=== PATIENT | male | born 1940 | race Caucasian/White ===

== ENCOUNTER 2020-03-06 10:22 | Outpatient (CLI) | payer OTHER, SELFPAY ==
[2020-03-06 11:11] LABS: Blood Urea Nitrogen 12 mg/dL (9-20); Calcium 9.1 mg/dL (8.4-10.2); Carbon Dioxide 31 mmol/L (22-30); Chloride 103 mmol/L (98-107); Estimated Glomerular Filt Rate > 60; Glucose 123 mg/dL (75-110); Potassium 4.4 mmol/L (3.4-5.0); Sodium 137 mmol/L (137-145)
== END 2020-03-06 10:23 | disposition home or self-care (01) ==
PROVIDERS: PCP Family Medicine Adolescent Medicine; Visit Provider Internal Medicine Cardiovascular Disease
DX: I50.23 Acute on chronic systolic (congestive) heart failure (principal)
CPT/HCPCS: 36415; 80048

== ENCOUNTER 2020-05-28 09:01 | Outpatient (CLI) | payer OTHER, SELFPAY ==
[2020-05-28 09:44] LABS: Cholesterol 113 mg/dL (0-200); HDL Direct 31 mg/dL; Triglycerides 112 mg/dL (<150)
[2020-05-28 09:54] LABS: LDL Cholesterol Direct 59 mg/dL
== END 2020-05-28 09:02 | disposition home or self-care (01) ==
PROVIDERS: PCP Family Medicine Adolescent Medicine
DX: Z79.899 Other long term (current) drug therapy (principal)
CPT/HCPCS: 36415; 80061

== ENCOUNTER 2020-06-14 11:06 | Outpatient (CLI) | payer OTHER, SELFPAY ==
[2020-06-14 11:49] LABS: Basophils Absolute Auto 0.1 K/mm3 (0.0-0.1); Basophils Percent Auto 0.6 % (0.2-1.2); Eosinophils Absolute Auto 0.1 K/mm3 (0-0.3); Eosinophils Percent Auto 0.9 % (0-4.4); Hematocrit 42.6 % (42.0-52.0); Hemoglobin 14.3 g/dL (14.0-18.0); Immature Granulocyte Absolute 0.03 K/mm3 (0.00-0.031); Immature Granulocyte Percent A 0.4 % (0-0.5); Lymphocytes Absolute Auto 1.15 K/mm3 (0.9-3.2); Lymphocytes Percent Auto 14.1 % (18.3-44.2); Mean Corpuscular HGB Conc 33.6 g/dl (32-36); Mean Corpuscular Hemoglobin 31.4 pg (26-34); Mean Corpuscular Volume 93.4 fl (80-100); Mean Platelet Volume 10.3 fl (7.4-10.4); Monocytes Absolute Auto 0.7 K/mm3 (0.1-0.6); Neutrophils Absolute Auto 6.1 K/mm3 (1.3-6.7); Platelet Count Result 174 k/mm3 (150-375); Red Blood Count 4.56 M/mm3 (4.6-6.20); Red Cell Distribution Width 13.4 % (11.5-14.5); White Blood Count 8.2 K/mm3 (4.5-10.0)
[2020-06-14 12:03] LABS: Anion Gap 8 mmol/L (8-16); Blood Urea Nitrogen 17 mg/dL (9-20); Calcium 9.4 mg/dL (8.4-10.2); Carbon Dioxide 26 mmol/L (22-30); Chloride 103 mmol/L (98-107); Estimated Glomerular Filt Rate > 60; Glucose 97 mg/dL (75-110); Potassium 4.6 mmol/L (3.4-5.0); Sodium 137 mmol/L (137-145)
[2020-06-14 12:17] LABS: Iron 98 ug/dL (49-181)
[2020-06-14 12:26] LABS: Percent Iron Saturation 28 % (20-50)
== END 2020-06-14 11:07 | disposition home or self-care (01) ==
PROVIDERS: PCP Family Medicine Adolescent Medicine; Visit Provider Internal Medicine Cardiovascular Disease
DX: I50.23 Acute on chronic systolic (congestive) heart failure (principal)
CPT/HCPCS: 36415; 80048; 83540; 83550; 85025

== ENCOUNTER 2020-07-02 16:06 | Emergency (ER) | payer OTHER, SELFPAY ==
[2020-07-02 17:10] VITALS: BP 105/58; PULSE 62; RESP 18; TEMP 36.1; O2SAT 96
[2020-07-02 17:24] LABS: Basophils Percent Auto 0.2 % (0.2-1.2); Eosinophils Percent Auto 0.2 % (0-4.4); Hematocrit 41.1 % (42.0-52.0); Hemoglobin 13.9 g/dL (14.0-18.0); Immature Granulocyte Absolute 0.04 K/mm3 (0.00-0.031); Immature Granulocyte Percent A 0.3 % (0-0.5); Lymphocytes Absolute Auto 1.45 K/mm3 (0.9-3.2); Lymphocytes Percent Auto 10.8 % (18.3-44.2); Mean Corpuscular HGB Conc 33.8 g/dl (32-36); Mean Corpuscular Hemoglobin 31.5 pg (26-34); Mean Corpuscular Volume 93.2 fl (80-100); Mean Platelet Volume 10.1 fl (7.4-10.4); Monocytes Absolute Auto 0.9 K/mm3 (0.1-0.6); Monocytes Percent Auto 6.4 % (2.6-8.5); Neutrophils Percent Auto 82.1 % (45.5-73.1); Platelet Count Result 182 k/mm3 (150-375); Red Blood Count 4.41 M/mm3 (4.6-6.20); Red Cell Distribution Width 13.9 % (11.5-14.5); White Blood Count 13.4 K/mm3 (4.5-10.0)
[2020-07-02 17:33] LABS: Prothrombin Time 13.1 Seconds (11.1-14.7)
[2020-07-02 17:34] LABS: Partial Thromboplastin Time 27.1 SECONDS (22.3-36.8)
[2020-07-02 17:35] LABS: Alanine Aminotransferase 44 U/L (4-50); Albumin Level 4.4 g/dL (3.5-5.1); Alkaline Phosphatase 61 U/L (38-126); Anion Gap 6 mmol/L (8-16); Aspartate Amino Transferase 38 U/L (17-59); Bilirubin,Total 1.8 mg/dL (0.2-1.3); Blood Urea Nitrogen 24 mg/dL (9-20); Calcium 10.5 mg/dL (8.4-10.2); Carbon Dioxide 37 mmol/L (22-30); Chloride 93 mmol/L (98-107); Estimated CRCL calculation 58 ml/min; Estimated Glomerular Filt Rate > 60; Glucose 137 mg/dL (75-110); Potassium 4.8 mmol/L (3.4-5.0); Sodium 136 mmol/L (137-145)
[2020-07-02 19:38] VITALS: BP 123/63; PULSE 64; RESP 16; O2SAT 99
[2020-07-02 19:40] VITALS: BP 112/58; PULSE 62
[2020-07-02 19:41] VITALS: BP 119/64; PULSE 63
[2020-07-02 19:42] VITALS: BP 107/60; PULSE 76
--- NOTE | 2020-07-02 20:19 | ED.GIBLEED ---
HPI - GI Bleed General Chief complaint: GI Bleed Stated complaint: VOMITING BLOOD Time Seen by Provider: 07/02/20 19:18 Source: patient and family (Note typed up from patient's ) Mode of arrival: ambulatory Limitations: no limitations History of Present Illness HPI Narrative: Patient presents with chief complaint of vomiting with coffee-ground emesis that happened last night as well as this morning after eating. Patient states that he has had this issue before and had a EGD performed by Dr. Michael last September and he was started on Protonix 40 mg daily which he has been taking. Patient reports mild nausea but denies any abdominal pain, noticeable blood in his stool, weakness, chest pain, shortness of breath or other associated symptoms. Patient states of possible he would like to go home. Patient states that his called his primary care Dr. Thomas who recommended he come to the ER for evaluation. Related Data Home Medications Medication Instructions Recorded Confirmed baclofen 10 mg PO DAILY 10/05/19 10/05/19 carvedilol 3.125 mg PO DAILY 10/05/19 10/05/19 clopidogrel 75 mg PO DAILY 10/05/19 10/05/19 ferrous sulfate [iron] 325 mg PO DAILY 10/05/19 10/05/19 pantoprazole 40 mg PO HS 10/05/19 10/05/19 simvastatin 40 mg PO DAILY 10/05/19 10/05/19 Allergies Allergy/AdvReac Type Severity Reaction Status Date / Time Iodine and Iodide Containing Allergy Severe CARDIAC Verified 10/16/19 07:03 Produc ARREST iodixanol Allergy Severe CARDIAC Verified 10/16/19 07:03 ARREST Review of Systems Review of Systems: Narrative: CONSTITUTIONAL: Denies fever, chills, or sweats. EYES: Denies visual changes, redness, or discharge. ENT: Denies rhinorrhea, congestion, sore throat, or otalgia. CARDIOVASCULAR: Denies chest pain, palpitations, or edema. RESPIRATORY: Denies cough or dyspnea. GASTROINTESTINAL: Reports 3 episodes of vomiting with coffee-ground emesis and mild nausea denies abdominal pain or diarrhea. GENITOURINARY: Denies dysuria or hematuria. SKIN: Denies rash or itching. MUSCULOSKELETAL: Denies back pain, joint pain, or myalgia. NEUROLOGIC: Denies headache, numbness, dizziness, or weakness. PSYCHIATRIC: Denies anxiety or depression. [facility] Past Medical History Medical History (Updated 07/02/20 @ 20:44 by Luis E Raymundo PA-C) Anemia Arthritis CAD (coronary artery disease) CVA (cerebral vascular accident) GERD (gastroesophageal reflux disease) HLD (hyperlipidemia) HTN (hypertension) Myocardial infarct Shortness of breath Surgical History Surgical History (Updated 10/15/19 @ 17:35 by Kassy Mcmahan CRNA) H/O vasectomy History of appendectomy Hx of heart artery stent S/P angioplasties S/P cholecystectomy Family History Family History (Updated 01/25/18 @ 11:44 by DOCTOR UNKNOWN) Mother Diabetes mellitus Family history of malignant neoplasm Social History Social History Smoking status: Current every day smoker Alcohol intake: current Gender identity (if verbalized by the patient): Male Exam Narrative: Exam Narrative: GENERAL: Well-appearing, well-nourished, and in no acute distress. HEAD: Normocephalic, atraumatic. EYES: PERRLA and EOMI. ENT: Nares clear, no rhinorrhea or epistaxis. Mucous membranes moist. Oropharynx without tonsillar hypertrophy exudate or other lesions. Bilateral TMs pearly plata nonbulging. No coffee ground emesis or discolored residue to the oropharynx. Airway patent. NECK: Supple. No adenopathy or masses. CHEST: Clear to auscultation. No respiratory distress. No wheezes rales or rhonchi HEART: Regular rate and rhythm. No murmur heard. ABDOMEN: Soft, nontender, nondistended, normal active bowel sounds. No present vomiting. EXTREMITIES: Normal range of motion. No edema. SKIN: Warm, dry, no rash. NEURO: No focal deficits. Alert and oriented x3. Ambulates without weakness or difficulty. PSYCH: Normal mood and affect. Course Vital Signs Vital signs
--- NOTE | 2020-07-02 20:42 | PC.NURSE ---
Spoke with and gave her the instructions per Dr Michael. She stated that she will call them first thing in the morning.
[2020-07-02] MEDS: ONDANSETRON HCL ODT 4 MG TABLET PO (20:52)
== END 2020-07-02 21:15 | disposition home or self-care (01) ==
PROVIDERS: Emergency Medicine; Emergency Provider Emergency Medicine; PCP Family Medicine Adolescent Medicine
DX: K92.0 Hematemesis (principal); D64.9 Anemia, unspecified; M19.90 Unspecified osteoarthritis, unspecified site; I25.10 Atherosclerotic heart disease of native coronary artery without angina pectoris; K21.9 Gastro-esophageal reflux disease without esophagitis; E78.5 Hyperlipidemia, unspecified; I10 Essential (primary) hypertension; I25.2 Old myocardial infarction; F17.210 Nicotine dependence, cigarettes, uncomplicated
CPT/HCPCS: 36415; 80053; 85025; 85610; 85730; 86850; 86900; 86901; 99283; A9270

== ENCOUNTER 2020-07-08 02:48 | Outpatient (CLI) | payer OTHER, SELFPAY ==
[2020-07-08 16:34] LABS: SARS-CoV-2 RNA PCR Negative
== END 2020-07-08 02:49 | disposition home or self-care (01) ==
LOC: ANHCOVIDDT 02:48
PROVIDERS: PCP Family Medicine Adolescent Medicine; Visit Provider Internal Medicine Gastroenterology
DX: Z01.812 Encounter for preprocedural laboratory examination (principal); Z20.828 Contact with and (suspected) exposure to other viral communicable diseases
CPT/HCPCS: 87635; C9803; U0003

== ENCOUNTER 2020-07-10 01:05 | Day surgery (SDC) | payer OTHER, SELFPAY ==
--- NOTE | 2020-07-10 09:55 | WPDGICN ---
Assessment and Plan Assessment and plan (1) Hematemesis: Code(s): K92.0 - Hematemesis Status: Acute Assessment and Plan: plan is to evaluate with EGD. This is particularly important because patient requires Plavix cause of atherosclerotic heart disease. Plavix will be held briefly for the duration of the EGD. Patient is on pantoprazole 40 mg p.o. daily this will be continued until after endoscopy. (2) GERD (gastroesophageal reflux disease): Code(s): K21.9 - Gastro-esophageal reflux disease without esophagitis Status: Acute GI Consult Note Consult date/time: 07/10/20 09:55 HPI: Ross Canchola is a 80 year old male Seen in evaluation at the request of Dr. Lanre Thomas. Patient in usual state of health he experience 2-3 days of coffee-ground emesis. Today he presents for further evaluation. He states over the last 1-2 weeks has had no evidence of additional bleeding. He denies abdominal pain. He currently is tolerating diet without difficulty. Patient denies any prior history of ulcer disease. In the past he has been treated for acid reflux. He currently is on Plavix because of atherosclerotic heart disease. Review of Systems Review of Systems: All systems reviewed & are unremarkable except as noted in HPI and below PMFSH Past Medical History Medical History Anemia Arthritis CAD (coronary artery disease) CVA (cerebral vascular accident) GERD (gastroesophageal reflux disease) HLD (hyperlipidemia) HTN (hypertension) Myocardial infarct Shortness of breath Surgical History Surgical History (Updated 10/15/19 @ 17:35 by Kassy Mcmahan CRNA) H/O vasectomy History of appendectomy Hx of heart artery stent S/P angioplasties S/P cholecystectomy Family History Family History (Updated 01/25/18 @ 11:44 by DOCTOR UNKNOWN) Mother Diabetes mellitus Family history of malignant neoplasm Social History Social History (Updated 07/05/20 @ 10:33 by Wanda Duarte RN) Smoking status: Former smoker Tobacco type: cigarettes Second hand tobacco smoke exposure: No Alcohol intake: former Substance use: never Substance use type: does not use Living arrangements: with family Gender identity (if verbalized by the patient): Male Spiritual care concerns: No Agree to blood products: Yes Meds Home Medications and Allergies Home Medications Medication Instructions Recorded Confirmed Type carvedilol 3.125 mg PO DAILY 10/05/19 07/05/20 History clopidogrel 75 mg PO DAILY 10/05/19 07/05/20 History pantoprazole 40 mg PO HS 10/05/19 07/05/20 History ondansetron 4 mg PO Q6H PRN #14 tablet 07/02/20 07/05/20 Rx sucralfate [Carafate] 1 gm PO QID #20 tablet 07/02/20 07/05/20 Rx furosemide 40 mg PO DAILY 07/05/20 07/05/20 History rosuvastatin 40 mg PO DAILY 07/05/20 07/05/20 History sacubitril-valsartan [Entresto] 1 tablet PO BID 07/05/20 07/05/20 History spironolactone 25 mg PO DAILY 07/05/20 07/05/20 History tramadol 50 mg PO PRN 07/05/20 07/05/20 History Allergies Allergy/AdvReac Type Severity Reaction Status Date / Time Iodine and Iodide Containing Allergy Severe CARDIAC Verified 07/10/20 09:54 Produc ARREST iodixanol Allergy Severe CARDIAC Verified 07/10/20 09:54 ARREST Exam Narrative: Exam Narrative: Physical exam reveals patient to be alert. Vital signs stable. HEENT exam unremarkable. Patient is anicteric. Lungs are clear to auscultation and percussion. Heart is without murmur or extra sounds. Abdominal exam bowel sounds present soft nontender with no organomegaly. Rectal exam reveals no lesions. No stools obtained
--- NOTE | 2020-07-10 10:05 | WPDANESEPPF ---
Anes - Initial Pre Proc Eval Procedure: Operation Date: 07/10/20 10:30 Proposed Procedures p Esophagogastroduodenoscopy - Narciso Michael MD Date/Time: 07/10/20 10:05 Surgeon: Narciso Michael MD Pre Op Diagnosis: Hematemesis Patient Data Age: 80 Gender: M Height: Weight: Allergies Allergy/AdvReac Type Severity Reaction Status Date / Time Iodine and Iodide Containing Allergy Severe CARDIAC Verified 07/10/20 09:54 Produc ARREST iodixanol Allergy Severe CARDIAC Verified 07/10/20 09:54 ARREST Home Medications Medication Instructions Recorded Confirmed Type carvedilol 3.125 mg PO DAILY 10/05/19 07/10/20 History clopidogrel 75 mg PO DAILY 10/05/19 07/10/20 History pantoprazole 40 mg PO HS 10/05/19 07/10/20 History ondansetron 4 mg PO Q6H PRN #14 tablet 07/02/20 07/10/20 Rx sucralfate [Carafate] 1 gm PO QID #20 tablet 07/02/20 07/10/20 Rx furosemide 40 mg PO DAILY 07/05/20 07/10/20 History rosuvastatin 40 mg PO DAILY 07/05/20 07/10/20 History sacubitril-valsartan [Entresto] 1 tablet PO BID 07/05/20 07/10/20 History spironolactone 25 mg PO DAILY 07/05/20 07/10/20 History tramadol 50 mg PO PRN 07/05/20 07/10/20 History Patient hx anesthesia problems: none Family hx anesthesia problems: none PMFSH Past Medical History Medical History Anemia Arthritis CAD (coronary artery disease) CVA (cerebral vascular accident) GERD (gastroesophageal reflux disease) HLD (hyperlipidemia) HTN (hypertension) Myocardial infarct Shortness of breath Surgical History Surgical History (Updated 10/15/19 @ 17:35 by Kassy Mcmahan CRNA) H/O vasectomy History of appendectomy Hx of heart artery stent S/P angioplasties S/P cholecystectomy Family History Family History (Updated 01/25/18 @ 11:44 by DOCTOR UNKNOWN) Mother Diabetes mellitus Family history of malignant neoplasm Social History Social History (Updated 07/05/20 @ 10:33 by Wanda Duarte RN) Smoking status: Former smoker Tobacco type: cigarettes Second hand tobacco smoke exposure: No Alcohol intake: former Substance use: never Substance use type: does not use Living arrangements: with family Gender identity (if verbalized by the patient): Male Spiritual care concerns: No Agree to blood products: Yes Anes - Eval Final PreProcedure Day of Procedure 07/10/20 10:05 Patient weight: normal Heart: regular rate and rhythm Lungs: clear to auscultation Airway: Mallampati scale class II Neurological: alert and oriented Last oral intake: >/= 8 hours ASA classification: III Emergent: no Anesthetic plan: proceed Anesthesia type and monitoring: general GIVS and standard monitoring Informed Consent: The patient's anesthetic plan and its attendant risks and benefits were discussed with the patient/family/POA. Questions were solicited and answers provided to the satisfaction of the patient/family/POA.
[2020-07-10 10:16] VITALS: BP 114/62; PULSE 56; RESP 18; TEMP 36.4; O2SAT 100; BMI 24.1
[2020-07-10] MEDS: LACTATED RINGERS 1,000 ML 150 ML IV CONT (10:22)
[2020-07-10] MEDS: BENZOCAINE (*SP) 60 ML SPRAY CAN (HURRICAINE) 1 SPRAY MUCOUS MEM (10:48)
[2020-07-10 10:55] VITALS: BP 89/45; PULSE 57; RESP 30; O2SAT 99
[2020-07-10 11:05] VITALS: BP 95/68; PULSE 57; RESP 19; O2SAT 100
[2020-07-10 11:15] VITALS: BP 93/70; PULSE 59; RESP 19; O2SAT 100
--- NOTE | 2020-07-10 11:23 | ECG_ITS ---
Measurements Intervals [place] Rate: 60 P: 96 MS: 227 QRS: -46 QRSD: 138 T: 156 QT: 430 QTc: 431 Interpretive Statements SINUS RHYTHM WITH FIRST DEGREE AV BLOCK VENTRICULAR TRIGEMINY LEFT AXIS DEVIATION LEFT BUNDLE BRANCH BLOCK BASELINE ARTIFACT- I, II, III, AVR, AVL, AVF, V1-V6 ABNORMAL ECG Electronically Signed On 07-10-2020 12:20:27 CDT by Richard Lovelace D.O.
[2020-07-10 11:25] VITALS: BP 84/67; PULSE 60; RESP 25; O2SAT 100
--- NOTE | 2020-07-10 11:26 | SUR.PHASEII ---
Pt in atrial fibrillation. Notified Dr. Tian anesthesiology. Orders recieved for and EKG.
[2020-07-10 11:35] VITALS: BP 112/61; PULSE 58; RESP 25; O2SAT 100
--- NOTE | 2020-07-10 11:52 | SUR.PHASEII ---
EKG results given to Dr. Tian. Dr. Tian spoke with pt primary care physician Lanre Thomas regarding results. Pt to make follow up appointment with Dr. Thomas. Pt's Madelin Canchola updated.
== END 2020-07-10 12:01 | disposition home or self-care (01) ==
PROVIDERS: PCP Family Medicine Adolescent Medicine; Visit Provider Internal Medicine Gastroenterology
PROC: 0DJ08ZZ Inspection of Upper Intestinal Tract, Via Natural or Artificial Opening Endoscopic (ICD-10-PCS; CPT 43235; principal; 2020-07-10 10:30)
DX: K22.10 Ulcer of esophagus without bleeding (principal); K21.9 Gastro-esophageal reflux disease without esophagitis; K92.0 Hematemesis; I25.10 Atherosclerotic heart disease of native coronary artery without angina pectoris; E78.5 Hyperlipidemia, unspecified; I25.2 Old myocardial infarction; I10 Essential (primary) hypertension; M19.90 Unspecified osteoarthritis, unspecified site; Z87.891 Personal history of nicotine dependence
CPT/HCPCS: 43239; 88305; 93005; J2001; J2704; J7120

== ENCOUNTER 2022-05-17 15:19 | Emergency (ER) | payer OTHER, SELFPAY ==
[2022-05-17 15:22] VITALS: BP 146/86; PULSE 62; RESP 22; TEMP 36.1; O2SAT 98
--- NOTE | 2022-05-17 18:02 | PC.NURSE ---
no answer at triage
--- NOTE | 2022-05-17 18:26 | PC.NURSE ---
No answer when called in wr.
== END 2022-05-17 18:28 | disposition left against medical advice (07) ==
LOC: ANHED 18:11
PROVIDERS: PCP Family Medicine Adolescent Medicine
DX: R06.02 Shortness of breath (principal)
CPT/HCPCS: 99199

== ENCOUNTER 2022-11-01 21:53 | Inpatient (IN) | payer OTHER, SELFPAY ==
--- NOTE | ~2022-11-01 | XR_ITS ---
EXAMINATION: XR chest 1V portable DATE: 11/01/2022 23:01 INDICATION: Soreness of breath. COVID. Congestive heart failure. TECHNIQUE: frontal view of the chest was obtained. COMPARISON: Chest radiograph dated 03/27/2019 FINDINGS: Interstitial and airspace opacities throughout both lungs. Small left pleural effusion. No pneumothor ax. Cardiomediastinal silhouette within normal limits for AP technique. Surgical clips the left side of the neck. IMPRESSION: 1. Diffuse bilateral lung disease which could represent pneumonia or pulmonary edema. 2. Small left pleural effusion. Reviewed, dictated and finalized at location A. ITECTURE ANALYST
[2022-11-01 21:52] VITALS: BP 117/76; PULSE 102; RESP 21; TEMP 36.9; O2SAT 100
[2022-11-01 22:06] VITALS: O2SAT 100
--- NOTE | 2022-11-01 22:09 | ECG_ITS ---
Measurements Intervals [place] Rate: 94 P: 78 OR: 220 QRS: -25 QRSD: 171 T: 136 QT: 384 QTc: 481 Interpretive Statements SINUS RHYTHM WITH FIRST DEGREE AV BLOCK LEFT BUNDLE BRANCH BLOCK ABNORMAL ECG COMPARED TO ECG 07/10/2020 11:53:30 VENTRICULAR TRIGEMINY RESOLVED Electronically Signed On 11-02-2022 7:57:18 JORDAN WORKER by Richard Lovelace D.O.
--- NOTE | 2022-11-01 22:14 | ED.GENADULT ---
HPI - General Adult General Chief complaint: Shortness of Breath/Dyspnea Stated complaint: SOB Time Seen by Provider: 11/01/22 22:07 History of Present Illness HPI narrative: 82-year-old male with history of CVA, coronary disease, congestive heart failure emphysema hypertension and recent COVID presented emerged department for evaluation of worsening shortness of breath over the last 2 weeks. Patient states he was diagnosed with COVID approximately 1 week ago. Patient states over the last 2 weeks he has had worsening cough congestion and lower extremity edema. Patient is normally not on oxygen at home. Patient called EMS for shortness of breath and was placed on 4 L of oxygen by nasal cannula. Related Data Home Medications Medication Instructions Recorded Confirmed sacubitril 97 mg-valsartan 103 mg 1 tablet PO BID 07/05/20 11/02/22 tablet (Entresto) carvedilol 3.125 mg tablet 3.125 mg PO BID 11/03/21 11/02/22 furosemide 40 mg tablet 40 mg PO BID 11/02/22 11/02/22 Allergies Allergy/AdvReac Type Severity Reaction Status Date / Time Iodine and Iodide Containing Allergy Severe CARDIAC Verified 10/14/22 10:49 Produc ARREST iodixanol Allergy Severe CARDIAC Verified 10/14/22 10:49 ARREST Review of Systems Review of Systems: CONSTITUTIONAL: See HPI EYES: Denies visual changes, redness, or discharge. ENT: Denies rhinorrhea, congestion, sore throat, or otalgia. CARDIOVASCULAR: Denies chest pain, palpitations, or edema. RESPIRATORY: See HPI GASTROINTESTINAL: Denies abdominal pain, nausea, vomiting, or diarrhea. GENITOURINARY: Denies dysuria or hematuria. SKIN: Denies rash or itching. MUSCULOSKELETAL: Denies back pain, joint pain, or myalgia. NEUROLOGIC: Denies headache, numbness, or weakness. PSYCHIATRIC: Denies anxiety or depression. [facility] Past Medical History Medical History Anemia Arthritis CAD (coronary artery disease) GERD (gastroesophageal reflux disease) HLD (hyperlipidemia) HTN (hypertension) Myocardial infarct Shortness of breath Surgical History Surgical History H/O vasectomy History of appendectomy History of left-sided carotid endarterectomy 12/08 Hx of heart artery stent S/P angioplasties S/P cholecystectomy Family History Family History Mother Diabetes mellitus Family history of malignant neoplasm Social History Social History Smoking packs per day: 2 Smoking cigarettes per day: 40.0 Years smoked: 30 Smoking pack-years: 60.00 Smoking status: Former smoker Tobacco type: cigarettes Second hand tobacco smoke exposure: No Alcohol intake: never Substance use: never Substance use type: does not use Lack of Transportation: No Lack of Food: Never True Current Housing: I Have Housing Concerned About Future Housing: No Difficulty Paying Gas/Electric Bills: No Difficulty Paying for Meds: No Currently Unemployed: No Education: High School Diploma/GED Difficulty w/ Childcare or Family Care: No Living arrangements: with family Occupation/Education: retired Gender identity (if verbalized by the patient): Male Spiritual care concerns: No Agree to blood products: Yes Exam Narrative: APPEARANCE: Well appearing, no pain, no distress, well-nourished. HEAD: normocephalic, atraumatic. EYES: PERRLA/EOMI, conjunctivae clear. NOSE: Normal no drainage EARS:TMS clear with good light reflex. THROAT: Pharynx clear, no exudate. NECK: Supple. No adenopathy, no masses. RESPIRATORY: Airway patent, respirations nonlabored. Lower lung congestion CARDIOVASCULAR: Tachycardia ABDOMINAL: Soft, nontender, nondistended, normal bowel sounds MUSCULOSKELETAL: Moves all extremities. Strength/ROM intact, No edema, No calf tenderness. NEURO: Alert. C
[2022-11-01 22:34] LABS: Basophils Percent Auto 0.3 % (0.2-1.2); Eosinophils Percent Auto 0.1 % (0-4.4); Hematocrit 38.6 % (42.0-52.0); Hemoglobin 12.4 g/dL (14.0-18.0); Immature Granulocyte Absolute 0.04 K/mm3 (0.00-0.031); Immature Granulocyte Percent A 0.4 % (0-0.5); Lymphocytes Absolute Auto 0.75 K/mm3 (0.9-3.2); Lymphocytes Percent Auto 7.9 % (18.3-44.2); Mean Corpuscular HGB Conc 32.1 g/dl (32-36); Mean Corpuscular Hemoglobin 29.2 pg (26-34); Mean Corpuscular Volume 90.8 fl (80-100); Mean Platelet Volume 10.5 fl (7.4-10.4); Monocytes Absolute Auto 0.8 K/mm3 (0.1-0.6); Monocytes Percent Auto 8.9 % (2.6-8.5); Neutrophils Absolute Auto 7.8 K/mm3 (1.3-6.7); Neutrophils Percent Auto 82.4 % (45.5-73.1); Platelet Count Result 206 k/mm3 (150-375); Red Blood Count 4.25 M/mm3 (4.6-6.20); White Blood Count 9.5 K/mm3 (4.5-10.0)
[2022-11-01 22:47] LABS: INR 1.2; Partial Thromboplastin Time 28.3 SECONDS (22.3-36.8); Prothrombin Time 14.4 Seconds (11.1-14.7)
[2022-11-01 22:52] VITALS: BP 118/68; PULSE 99; RESP 26; O2SAT 99
--- NOTE | 2022-11-01 23:32 | PM.IMHP ---
H&P: HPI History of Present Illness Date/Time: 11/01/22 23:32 Chief Complaint: sob Narrative: This is an 82-year-old male with past medical history significant for coronary artery disease, GERD, hypertension, stroke. Patient presents to the emergency room due to shortness of breath tested positive for COVID a few days ago has noticed progressively worsening shortness of breath, body aches and pains, poor appetite, night sweats, chills, fevers. History taking is somehow limited patient has dysarthria as a sequela from a stroke. Preliminary workup was significant for chest x-ray was reported as: FINDINGS: Interstitial and airspace opacities throughout both lungs. Small left pleural effusion. No pneumothorax. Cardiomediastinal silhouette within normal limits for AP technique. Surgical clips the left side of the neck. IMPRESSION: 1. Diffuse bilateral lung disease which could represent pneumonia or pulmonary edema. 2. Small left pleural effusion. Review of Systems Review of Systems: History taking is limited patient complaining of shortness of breath tested positive for COVID A 2 weeks prior Constitutional: Constitutional: Reports chills, Reports fever(s) and Reports malaise Eyes: Eyes: Denies change in vision ENT: Denies dysphagia and Denies odynophagia Cardiovascular: Cardiovascular: Denies chest pain Respiratory: Respiratory: Reports cough and Reports dyspnea Gastrointestinal: Gastrointestinal: Denies abdominal pain, Denies dyspepsia, Denies heartburn, Denies diarrhea, Denies nausea and Denies vomiting Genitourinary: Genitourinary: Denies dysuria Musculoskeletal: Musculoskeletal: Reports myalgias and Reports muscle weakness Integumentary/Breasts: Skin/Breast: Denies rash Neurologic: Denies tingling and Denies paresthesias Psychiatric: Psychiatric: Reports no additional psychiatric complaints and Reports as per HPI Endocrine: Endocrine: Denies cold intolerance, Denies flushing, Denies heat intolerance, Denies polyphagia, Denies polydipsia and Denies palpitations Hematologic/Lymphatic: Hematologic/Lymphatic: Reports no additional hematologic/lymphatic complaints and Reports as per HPI Allergic/Immunologic: Allergic/Immunologic: Reports no additional allergic/immunologic complaints and Reports as per HPI [facility] Past Medical History Medical History Anemia Arthritis CAD (coronary artery disease) GERD (gastroesophageal reflux disease) HLD (hyperlipidemia) HTN (hypertension) Myocardial infarct Shortness of breath Surgical History Surgical History H/O vasectomy History of appendectomy History of left-sided carotid endarterectomy 12/08 Hx of heart artery stent S/P angioplasties S/P cholecystectomy Family History Family History Mother Diabetes mellitus Family history of malignant neoplasm Social History Social History Smoking packs per day: 2 Smoking cigarettes per day: 40.0 Years smoked: 30 Smoking pack-years: 60.00 Smoking status: Former smoker Tobacco type: cigarettes Second hand tobacco smoke exposure: No Alcohol intake: never Substance use: never Substance use type: does not use Lack of Transportation: No Lack of Food: Never True Current Housing: I Have Housing Concerned About Future Housing: No Difficulty Paying Gas/Electric Bills: No Difficulty Paying for Meds: No Currently Unemployed: No Education: High School Diploma/GED Difficulty w/ Childcare or Family Care: No Gender identity (if verbalized by the patient): Male Spiritual care concerns: No Agree to blood products: Yes Meds Home Medications and Allergies Home Medications Medication Instructions Recorded Confirmed Type sacubitril 97 mg-valsartan 103 mg 1 tablet PO BID
[2022-11-01 23:33] LABS: Influenza A QL RT-PCR Negative (Negative); Influenza B QL RT-PCR Negative (Negative); RSV RNA, RT-PCR Negative (Negative); SARS-CoV-2 RNA PCR Positive
[2022-11-01 23:48] VITALS: PULSE 95; RESP 28; O2SAT 99
[2022-11-02] VITALS (18 sets, daily range): BP systolic 90–115; BP diastolic 48–70; PULSE 64–92; RESP 16–24; TEMP 36.3–37; O2SAT 90–98; BMI 23.0
--- NOTE | 2022-11-02 | ECHO_ITS ---
Patient Info Name: Ross Canchola Age: 82 years : 1940 Gender: Male Ht: 72 in Wt: 169 lbs BSA: 1.97 m2 HR: 71 bpm BP: 110 / 58 mmHg Technical Quality: Fair Exam Date: 11/02/2022 2:58 PM Exam Location: [facility] Pulmonary Exam Room: 252 Patient Status: Inpatient Admit Date: 11/01/2022 Staff Ordering Physician: Hermelindo Jara MD Internal Audit Consultant: Sallie Nixon RCS Attending Provider: Johan Pinto MD Exam Type: CA echo dop color flow w con Study Info Indications - cardiolmyopathy Complete two-dimensional, color flow and Doppler transthoracic echocardiogram is performed with contrast to opacify the left ventricle and to improve the deliniation of the left ventricle endocardial borders. Contrast/Agitated Saline Contrast/Ag. Saline: Definity Amount: 2.00 ml Administered By: Sallie Nixon Existing IV Access: Yes IV Access Condition: patent with no signs of infiltration Summary 1. Left ventricular chamber dimension is severely enlarged. 2. Definity contrast administered improved wall motion interpretation. 3. Left ventricular systolic function is severely globally reduced, estimated at 15-20%. 4. Left ventricular septal wall motion is abnormal with septal motion related to bundle branch block. 5. The left ventricular diastolic function is abnormal. 6. E/e' 18 is elevated. 7. Left atrial chamber dimension is moderately enlarged. 8. Right atrial chamber dimension is moderately enlarged. 9. There is moderate aortic valve sclerosis. 10. There is trace aortic valve regurgitation. 11. The mitral valve has mildly calcified annulus. 12. There is mild mitral valve regurgitation. 13. There is trace tricuspid valve regurgitation. 14. No pulmonary hypertension, estimated pulmonary arterial systolic pressure is 19 mmHg. 15. There is trace pulmonic regurgitation. Left Ventricle E/e' 18 is elevated. Definity contrast administered improved wall motion interpretation. Left ventricular systolic function is severely globally reduced, estimated at 15-20%. Left ventricular chamber dimension is severely enlarged. Left ventricular septal wall motion is abnormal with septal motion related to bundle branch block. The left ventricular diastolic function is abnormal. Right Ventricle Right ventricular systolic function is normal and with normal TAPSE 2.4 cm. Right ventricular chamber dimension is normal. Left Atria Left atrial chamber dimension is moderately enlarged. Right Atria Right atrial chamber dimension is moderately enlarged. Aortic Valve The aortic valve is trileaflet. There is moderate aortic valve sclerosis. There is no aortic valve stenosis. There is trace aortic valve regurgitation. Pulmonic Valve There is trace pulmonic regurgitation. Mitral Valve The mitral valve has mildly calcified annulus. There is no mitral valve stenosis. There is mild mitral valve regurgitation. Tricuspid Valve There is trace tricuspid valve regurgitation. No pulmonary hypertension, estimated pulmonary arterial systolic pressure is 19 mmHg. Pericardium/Pleural There is no pericardial effusion. Inferior Vena Cava Normal inferior vena cava with >50% collapse upon inspiration consistent with normal right atrial pressure, 5 mmHg. Aorta The aortic root size at the sinus of Valsalva is normal. Left Ventricular Outflow Tract
[2022-11-02 00:07] LABS: Alanine Aminotransferase 22 U/L (6-50); Albumin Level 3.4 g/dL (3.5-5.1); Alkaline Phosphatase 91 U/L (38-126); Anion Gap 3 mmol/L (8-16); Aspartate Amino Transferase 23 U/L (17-59); Bilirubin,Total 1.3 mg/dL (0.2-1.3); Blood Urea Nitrogen 13 mg/dL (9-20); Calcium 8.2 mg/dL (8.4-10.2); Carbon Dioxide 28 mmol/L (22-30); Chloride 103 mmol/L (98-107); Estimated CRCL calculation 76 ml/min; Estimated Glomerular Filt Rate > 60; Glucose 110 mg/dL (65-110); Potassium 4.5 mmol/L (3.4-5.0); Sodium 134 mmol/L (137-145)
[2022-11-02 00:14] LABS: Appearance Urine Clear (Clear); Bilirubin Urine 1+ (Negative); Blood Urine Trace-intact (Negative); Color Urine Yellow (Yellow); Glucose Urine UA Negative (Negative); Ketones Urine 1+ mg/dL (Negative); Leukocyte Esterase Ur Negative LEU/UL (Negative); NT Pro B Type Natriuretic Pept 8790 pg/mL (19.9-100); Nitrate Urine Negative (Negative); Protein Urine 1+ mg/dL (Negative); Specific Grav Ur >= 1.030 (1.001-1.035); pH Urine 5.5 (5.0-9.0)
[2022-11-02 00:19] LABS: Mucus Urine Rare /lpf; WBC Urine 0-3 /hpf
[2022-11-02 00:20] LABS: Add Urine Microscopic? YES
[2022-11-02] MEDS: FUROSEMIDE INJ 40 MG/4 ML VIAL IV PUSH ×2 (02:15→09:18)
--- NOTE | 2022-11-02 02:28 | ECG_ITS ---
Measurements Intervals [place] Rate: 87 P: 61 TX: 196 QRS: -29 QRSD: 173 T: 132 QT: 422 QTc: 509 Interpretive Statements SINUS RHYTHM WITH FIRST DEGREE AV BLOCK LEFT BUNDLE BRANCH BLOCK BASELINE ARTIFACT- I, II, III ABNORMAL ECG COMPARED TO ECG 11/01/2022 22:21:34 NO SIGNIFICANT CHANGES Electronically Signed On 11-02-2022 7:59:10 ELECTROPLATING LABORER by Richard Lovelace D.O.
--- NOTE | 2022-11-02 03:58 | PC.NURSE ---
Pt admitted to 252 from ER 0100 via cart. Pt A/O x3 flat affect Slurred speech , left facial droop and left side weaker than right from previous stroke. From home with spouse. Both with COVID. Pt refused COVID vaccination, did receive FLU vaccination Pt increased SOB, called ambulance. Received on 4L. 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 NEWTOK Full dentures. Pt unaware of meds that he takes. Called spouse- received information on pt behavior and medication. Spouse states pt walks steady, no devices, no hx falls, legs weaker few weeks ago and yesterday, and asked spouse for help to walk. In bed since admission to unit. Spouse puts medication in a 30 day dispenser, then pt takes from any date randomly with no consistency so spouse not sure if pt took meds. Suggested to get a 7 day pill box and watch him use it. Pt has refused to take Entresto for a year due to the cost. Refuses to take lasix for several months. Will take coreg only once a day NOT BID as prescribed. Chronic constipation. Use of pulse ox at home when family tells him to use it; however pt leaves on momentarily, states pulse ox is 97% and removes quickly so family members cannot see as per spouse. Spouse uses w/c at times when increased weakness Per pt -both spouse and pt continue to drive. They order [employer] then have package pick up -brought to car. Pt states daughter helps occasionally . Order written for straight cath in ER- was not done- pt voided here 50ml then another 50ml - straight cath after and return of 150ml clear yellow urine. While this nurse in pt room at 0212- pt had 19 beats VT- asymptomatic. Notified Dr. Pinto and received order for 12 lead EKG Given lasix 40 IVP that was ordered while pt in ER. 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 Explained plan of care. Orientation to room/ equipment given Pt calm cooperative, verbalized understanding of all instructions given. Fall/safety precautions.Pt verbalized appreciativeness of care given several times.
[2022-11-02 08:40] LABS: Alanine Aminotransferase 21 U/L (6-50); Estimated CRCL calculation 78 ml/min; Estimated Glomerular Filt Rate > 60
[2022-11-02 08:43] LABS: INR 1.3; Prothrombin Time 15.2 Seconds (11.1-14.7)
[2022-11-02] MEDS: ROSUVASTATIN 10 MG TABLET 40 MG PO (09:14)
[2022-11-02] MEDS: CLOPIDOGREL BISULFATE 75 MG TABLET PO (09:15)
[2022-11-02] MEDS: PANTOPRAZOLE 40 MG TABLET PO ×2 (09:15→16:18)
[2022-11-02] MEDS: REMDESIVIR 200 MG/NS 250 ML 200 MG/250 ML BAG 250 MG IVPB (09:15)
[2022-11-02] MEDS: carvediloL 3.125 MG TABLET PO ×2 (09:18→20:55)
[2022-11-02] MEDS: SPIRONOLACTONE 25 MG TABLET PO (09:18)
[2022-11-02] MEDS: SACUBITRIL/VALSARTAN 97-103 MG TABLET 1 TAB PO (09:18)
--- NOTE | 2022-11-02 12:08 | PM.IMPN ---
Progress Note: A&P Assessment and Plan (1) Pneumonia due to COVID-19 virus: Code(s): U07.1 - COVID-19; J12.82 - Pneumonia due to coronavirus disease 2018 Status: Acute (2) Chronic systolic (congestive) heart failure: Code(s): I50.22 - Chronic systolic (congestive) heart failure Status: Acute (3) CAD (coronary artery disease): Code(s): I25.10 - Atherosclerotic heart disease of [place] coronary artery without angina pectoris Status: Acute (4) Ischemic cardiomyopathy: Code(s): I25.5 - Ischemic cardiomyopathy Status: Acute (5) Dysarthria following cerebral infarction: Code(s): I69.322 - Dysarthria following cerebral infarction Status: Acute (6) Arterial ischemic stroke, ICA (internal carotid artery), right, remote, resolved: Code(s): Z86.73 - Personal history of transient ischemic attack (TIA), and cerebral infarction without residual deficits Status: Acute (7) GERD (gastroesophageal reflux disease): Code(s): K21.9 - Gastro-esophageal reflux disease without esophagitis Status: Acute Plan # acute hypoxic respiratory failure needing oxygen supplementation likely related to COVID. Unsure if COVID got worse recently the he was tested positive 2 and half weeks ago. Will initiate Decadron and remdesivir. # diffuse pneumonia rule out bacterial. Initiate antibiotics ceftriaxone and azithromycin sputum culture # history of cardiomyopathy loss follow-up 2 years ago. Supposed to be on Lasix Entresto spironolactone. Has not been taking Entresto due to cost. Will recheck echo. BNP is elevated at 8790 no prior levels available . Will change Lasix to orally # COVID infection: See above # DVT prophylaxis Lovenox # code status full code Subjective Date/time seen: 11/02/22 12:08 Interval history: feeling better. Shortness of breath has improved. COVID diagnosed 2 and half weeks ago. Worsening unsure how long ago. Has some cough. Review of Systems Review of Systems: All systems reviewed & are unremarkable except as noted in HPI and below Exam Narrative: APPEARANCE: Well appearing, no pain, no distress, well-nourished. HEAD: normocephalic, atraumatic. EYES: PERRLA/EOMI, conjunctivae clear. NOSE: Normal no drainage NECK: Supple. No adenopathy, no masses. RESPIRATORY: Airway patent, respirations nonlabored.? Coarse breath sounds bilaterally CARDIOVASCULAR: regular rate and rhythm, frequent PVCs some NSVT ABDOMINAL: Soft, nontender, nondistended, normal bowel sounds MUSCULOSKELETAL: Moves all extremities. Strength/ROM intact, No edema, No calf tenderness. NEURO: Alert. Cranial nerves II through XII intact.? Grossly intact.? Patient does have some dysarthria.? No new focal numbness or weakness SKIN: Warm, dry. Normal Color Objective Data Vital Signs Vital Signs: Vital Signs - 24 hr 11/01/22 21:52 11/01/22 22:06 11/01/22 22:52 Temperature 98.5 F Pulse Rate 102 H 99 Respiratory Rate 21 H 26 H Blood Pressure 117/76 118/68 Pulse Oximetry 100 100 99 Oxygen Delivery Nasal Cannula Nasal Cannula Oxygen Flow Rate 4 4 11/01/22 23:48 11/02/22 00:20 11/02/22 01:04 Temperature 98.6 F Pulse Rate 95 89 92 Respiratory Rate 28 H 24 H 18 Blood Pressure 115/70 109/65 Pulse Oximetry 99 98 97 Oxygen Delivery Oxygen Flow Rate 11/02/22 01:00 11/02/22 04:00 11/02/22 02:18 Temperature 97.8 F Pulse Rate 91 80 82 Respiratory Rate 16 Blood Pressure 107/65 Pulse Oximetry 98 Oxygen Delivery Oxygen Flow Rate 11/02/22 02:52 11/02/22 04:15 11/02/22 06:02 Temperature 97.7 F Pulse Rate 82 Respiratory Rate 16 Blood Pressure 104/66 Pulse Oximetry 94 91 97 Oxygen Delivery Oxygen Flow Rate 4 11/02/22 09:18 Temperature Pulse Rate 81 Respiratory Rate Blood Pressure Pulse Oximetry Oxygen Delivery Oxygen Flow Rate Intake/Output Intake/Output: Intake & Output 10/30/22 10/31/22 11/01/22
[2022-11-02 13:18] LABS: Procalcitonin 0.1 ng/mL
[2022-11-02] MEDS: PERFLUTREN LIPID MICROSPHERES 1.5 ML VIAL DILUTED TO 10 ML TOTAL VOLUME IV PUSH (15:15)
[2022-11-03] VITALS (13 sets, daily range): BP systolic 90–128; BP diastolic 50–69; PULSE 60–91; RESP 16–18; TEMP 36.2–36.6; O2SAT 92–96
[2022-11-03 05:44] LABS: INR 1.4; Prothrombin Time 16.4 Seconds (11.1-14.7)
[2022-11-03 05:45] LABS: Alanine Aminotransferase 31 U/L (6-50); Estimated CRCL calculation 69 ml/min; Estimated Glomerular Filt Rate > 60
--- NOTE | 2022-11-03 09:40 | PM.CNCAR ---
Assessment and Plan Assessment and plan (1) Chronic systolic (congestive) heart failure: Code(s): I50.22 - Chronic systolic (congestive) heart failure Status: Acute Assessment and Plan: Longstanding diagnosis with EF ~15%. He does not appear to be in decompensated heart failure at this time. He is already on good medical therapy for his CMY including Entresto, spironolactone, and coreg. He did quit taking his Entresto about 6 months ago due to cost. Can provide him with some samples, but ultimately if he is unable to afford this dental practitioner, losartan may be a better choice for him. Will add jardiance to his regimen, hopefully he can afford this. He does not have an ICD, he tells me he has been offered ICD for 30 years, and is not interested in LifeVest or ICD placement at this time. Continue with p.o. furosemide. (2) CAD (coronary artery disease): Code(s): I25.10 - Atherosclerotic heart disease of [place] coronary artery without angina pectoris Status: Acute Assessment and Plan: Stable, not reporting any anginal symptoms. Continue plavix, statin. (3) Pneumonia due to COVID-19 virus: Code(s): U07.1 - COVID-19; J12.82 - Pneumonia due to coronavirus disease 2018 Status: Acute Assessment and Plan: Management per hospitalist History of Present Illness History of Present Illness Consult date/time: 11/03/22 09:40 Requesting physician: Hermelindo Jara MD Consult reason: Other (cardiomyopathy) Reason For Visit: covid pneumonia,hypoxia,chf Narrative: Mr. Sushant Lim is a 82-year-old gentleman with a history of coronary artery disease status post myocardial infarction in 1994 with stenting of his RCA and circumflex in 2001, stenting LAD in 2007 and, a drug-eluting stent to the LAD in the with a chronic total occlusion of the RCA and left to left collaterals noted in 2019. He also has chronic systolic heart failure previously with ejection fraction of 16% which subsequently improved to 23%. He is followed by Dr. Ritter at [facility] [place] for this, although it looks like he hasn't been seen since 2020. He comes to the hospital now with a chief complaint of shortness of breath with exertion. He was diagnosed with COVID two weeks ago and developed worsening shortness of breath about a week ago. He had some evidence of CHF on presentation with some pulmonary edema and small pleural effusion on chest Xray, elevated BNP, and some peripheral edema. He was given IV diuretic, started on antibiotics for possible pneumonia, and is being treated for COVID with remdesivir and decadron. Currently, he is breathing comfortably on 2L O2. Denies any chest pain. His echocardiogram performed here once again shows a severe cardiomyopathy with EF 15-20%. Review of Systems Review of Systems: All systems reviewed & are unremarkable except as noted in HPI and below PMFSH Past Medical History Medical History Anemia Arthritis CAD (coronary artery disease) GERD (gastroesophageal reflux disease) HLD (hyperlipidemia) HTN (hypertension) Myocardial infarct Shortness of breath Surgical History Surgical History H/O vasectomy History of appendectomy History of left-sided carotid endarterectomy 12/08 Hx of heart artery stent S/P angioplasties S/P cholecystectomy Family History Family History Mother Diabetes mellitus Family history of malignant neoplasm Social History Social History Smoking packs per day: 2 Smoking cigarettes per day: 40.0 Years smoked: 30 Smoking pack-years: 60.00 Smoking status: Former smoker Tobacco type: cigarettes Second hand tobacco smoke exposure: No Alcohol intake: never Substance use: never Substance use type:
[2022-11-03] MEDS: carvediloL 3.125 MG TABLET PO ×2 (11:09→22:00)
[2022-11-03] MEDS: CLOPIDOGREL BISULFATE 75 MG TABLET PO (11:10)
[2022-11-03] MEDS: FUROSEMIDE 40 MG TABLET PO (11:11)
[2022-11-03] MEDS: ROSUVASTATIN 10 MG TABLET 40 MG PO (11:11)
[2022-11-03] MEDS: ENOXAPARIN 40 MG/0.4 ML SYRINGE SUB-Q (11:11)
[2022-11-03] MEDS: SACUBITRIL/VALSARTAN 97-103 MG TABLET 1 TAB PO (11:12)
[2022-11-03] MEDS: SPIRONOLACTONE 25 MG TABLET PO (11:13)
[2022-11-03] MEDS: REMDESIVIR 100 MG/NS 250 ML 100 MG/250 ML BAG 250 MG IVPB (11:14)
[2022-11-03] MEDS: PANTOPRAZOLE 40 MG TABLET PO ×2 (11:39→18:28)
--- NOTE | 2022-11-03 17:57 | PM.IMPN ---
Progress Note: A&P Assessment and Plan (1) Pneumonia due to COVID-19 virus: Code(s): U07.1 - COVID-19; J12.82 - Pneumonia due to coronavirus disease 2018 Status: Acute (2) Chronic systolic (congestive) heart failure: Code(s): I50.22 - Chronic systolic (congestive) heart failure Status: Acute (3) CAD (coronary artery disease): Code(s): I25.10 - Atherosclerotic heart disease of [place] coronary artery without angina pectoris Status: Acute (4) Ischemic cardiomyopathy: Code(s): I25.5 - Ischemic cardiomyopathy Status: Acute (5) Dysarthria following cerebral infarction: Code(s): I69.322 - Dysarthria following cerebral infarction Status: Acute (6) Arterial ischemic stroke, ICA (internal carotid artery), right, remote, resolved: Code(s): Z86.73 - Personal history of transient ischemic attack (TIA), and cerebral infarction without residual deficits Status: Acute (7) GERD (gastroesophageal reflux disease): Code(s): K21.9 - Gastro-esophageal reflux disease without esophagitis Status: Acute Plan # acute hypoxic respiratory failure needing oxygen supplementation likely related to COVID. Unsure if COVID got worse recently the he was tested positive 2 and half weeks ago. Will initiate Decadron and remdesivir. imrpoved clinically. contineu current regimen. # diffuse pneumonia rule out bacterial. Initiate antibiotics ceftriaxone and azithromycin sputum culture # history of cardiomyopathy loss follow-up 2 years ago. Supposed to be on Lasix Entresto spironolactone. Has not been taking Entresto due to cost. Will recheck echo. BNP is elevated at 8790 no prior levels available . lasxi to oral. bp lowish. will hold meds as needed. entresto will lwoer trini dose. cardiology consult. echo with ef 15-20%. lost follow up with cardiology. he does not have ICD either. # hx of cad withs tents int eh past # COVID infection: See above # DVT prophylaxis Lovenox # code status full code Subjective Date/time seen: 11/03/22 17:57 Interval history: no overnight events, feeling better. no sob, chest pain. he feels better. Review of Systems Review of Systems: All systems reviewed & are unremarkable except as noted in HPI and below Exam Narrative: APPEARANCE: Well appearing, no pain, no distress, well-nourished. HEAD: normocephalic, atraumatic. EYES: PERRLA/EOMI, conjunctivae clear. NOSE: Normal no drainage NECK: Supple. No adenopathy, no masses. RESPIRATORY: Airway patent, respirations nonlabored.? Coarse breath sounds bilaterally CARDIOVASCULAR: regular rate and rhythm, frequent PVCs some NSVT ABDOMINAL: Soft, nontender, nondistended, normal bowel sounds MUSCULOSKELETAL: Moves all extremities. Strength/ROM intact, No edema, No calf tenderness. NEURO: Alert. Cranial nerves II through XII intact.? Grossly intact.? Patient does have some dysarthria.? No new focal numbness or weakness SKIN: Warm, dry. Normal Color Objective Data Vital Signs Vital Signs: Vital Signs - 24 hr 11/02/22 20:32 11/02/22 20:55 11/02/22 20:00 Temperature 97.9 F Pulse Rate 73 73 Respiratory Rate 18 Blood Pressure 90/55 L Pulse Oximetry 93 Oxygen Delivery Room Air 11/02/22 20:00 11/03/22 00:00 11/03/22 04:00 Temperature Pulse Rate 64 65 60 Respiratory Rate Blood Pressure Pulse Oximetry Oxygen Delivery 11/03/22 07:00 11/03/22 11:09 11/03/22 14:00 Temperature 97.8 F 97.1 F L Pulse Rate 86 68 64 Respiratory Rate 16 18 Blood Pressure 128/69 90/50 L Pulse Oximetry 92 96 Oxygen Delivery Intake/Output Intake/Output: Intake & Output 10/31/22 11/01/22 11/02/22 11/03/22 23:59 23:59 23:59 23:59 Intake Total 2040 1700 Output Total 1150 900 Balance 890 800 Meds/Results Medications: Active Medications Generic Name Dose Route Start Last Admin Trade Name Freq PRN Reason Stop Dose Admin Acetaminophen/Codeine Phosphate 1
[2022-11-04] VITALS (10 sets, daily range): BP systolic 90–107; BP diastolic 60–76; PULSE 56–92; RESP 18–21; TEMP 36.1–36.6; O2SAT 94–100
[2022-11-04 05:09] LABS: Basophils Percent Auto 0.1 % (0.2-1.2); Hematocrit 40.9 % (42.0-52.0); Hemoglobin 13.2 g/dL (14.0-18.0); Immature Granulocyte Absolute 0.07 K/mm3 (0.00-0.031); Immature Granulocyte Percent A 0.5 % (0-0.5); Lymphocytes Absolute Auto 0.69 K/mm3 (0.9-3.2); Lymphocytes Percent Auto 5.3 % (18.3-44.2); Mean Corpuscular HGB Conc 32.3 g/dl (32-36); Mean Corpuscular Hemoglobin 29.5 pg (26-34); Mean Corpuscular Volume 91.3 fl (80-100); Mean Platelet Volume 10.4 fl (7.4-10.4); Monocytes Absolute Auto 0.8 K/mm3 (0.1-0.6); Monocytes Percent Auto 6.2 % (2.6-8.5); Neutrophils Absolute Auto 11.4 K/mm3 (1.3-6.7); Neutrophils Percent Auto 87.9 % (45.5-73.1); Platelet Count Result 231 k/mm3 (150-375); Red Blood Count 4.48 M/mm3 (4.6-6.20); Red Cell Distribution Width 16.5 % (11.5-14.5); White Blood Count 12.9 K/mm3 (4.5-10.0)
[2022-11-04 05:15] LABS: INR 1.2; Prothrombin Time 14.9 Seconds (11.1-14.7)
[2022-11-04 05:30] LABS: Alanine Aminotransferase 63 U/L (6-50); Albumin Level 3.3 g/dL (3.5-5.1); Alkaline Phosphatase 82 U/L (38-126); Anion Gap 6 mmol/L (8-16); Aspartate Amino Transferase 69 U/L (17-59); Bilirubin,Total 0.6 mg/dL (0.2-1.3); Blood Urea Nitrogen 29 mg/dL (9-20); Calcium 7.9 mg/dL (8.4-10.2); Carbon Dioxide 29 mmol/L (22-30); Chloride 94 mmol/L (98-107); Estimated CRCL calculation 78 ml/min; Estimated Glomerular Filt Rate > 60; Glucose 168 mg/dL (65-110); Magnesium 2.1 mg/dL (1.6-2.3); Potassium 3.7 mmol/L (3.4-5.0); Sodium 129 mmol/L (137-145)
[2022-11-04] MEDS: CLOPIDOGREL BISULFATE 75 MG TABLET PO (10:03)
[2022-11-04] MEDS: ENOXAPARIN 40 MG/0.4 ML SYRINGE SUB-Q (10:03)
[2022-11-04] MEDS: EMPAGLIFLOZIN 10 MG TABLET PO (10:03)
[2022-11-04] MEDS: ROSUVASTATIN 10 MG TABLET 40 MG PO (10:04)
[2022-11-04] MEDS: PANTOPRAZOLE 40 MG TABLET PO ×2 (10:04→16:23)
[2022-11-04] MEDS: REMDESIVIR 100 MG/NS 250 ML 100 MG/250 ML BAG 250 MG IVPB (10:05)
--- NOTE | 2022-11-04 12:09 | PM.IMPN ---
Progress Note: A&P Assessment and Plan (1) Pneumonia due to COVID-19 virus: Code(s): U07.1 - COVID-19; J12.82 - Pneumonia due to coronavirus disease 2018 Status: Acute (2) COVID: Code(s): U07.1 - COVID-19 Status: Acute (3) Chronic systolic (congestive) heart failure: Code(s): I50.22 - Chronic systolic (congestive) heart failure Status: Acute (4) Hypoxia: Code(s): R09.02 - Hypoxemia Status: Acute (5) CAD (coronary artery disease): Code(s): I25.10 - Atherosclerotic heart disease of [place] coronary artery without angina pectoris Status: Acute Plan Heart failure with reduced ejection fraction 15% Patient refused ICD-life vest Patient's BP of 100/60 Hold BP medicines except Entresto Daily weights Continue Jardiance Antiplatelet & Statin therapy bulk pigment reducer recommended Currently on ceftriaxone and Zithromax. On remdesivir and Decadron for COVID Blood cultures Staph epididymis Sputum cultures pending. Time Spent With Patient Time: DVT prophylaxis. GI prophylaxis. All records reviewed Discussed plan of care with the nursing staff and with the patient in detail. Answered all questions and concerns from the patient. All labs have been reviewed. Code status updated dictation may have been done utilizing a voice recognition system. Attempts have been made to correct errors. However, there may be uncorrected grammatical, spelling, and recognition errors present. Subjective Date/time seen: 11/04/22 12:09 Interval history: Denies any complains Exam Narrative: GENERAL: Well appearing, well-nourished, non-toxic, in no acute distress. HEAD: Normocephalic, atraumatic. NECK: Supple. No adenopathy, no masses. RESPIRATORY: Airway patent, respirations nonlabored. Clear to auscultation bilaterally, no rales, rhonchi, wheezing. CARDIOVASCULAR: Regular rate and rhythm without murmurs, rubs, or gallops. Peripheral pulses 2+ and equal bilaterally. ABDOMINAL: Soft, nontender, nondistended, no hepatosplenomegaly. Normoactive BS. MUSCULOSKELETAL: no Epigastric and no hypochondrial tenderness SKIN: Warm, dry, normal color. No rashes. NEURO: A&O X3. Moves all extremities PSYCHIATRIC: Appropriate mood and affect. Normal interaction. Objective Data Vital Signs Vital Signs: Vital Signs - 24 hr 11/03/22 14:00 11/03/22 16:00 11/03/22 21:59 Temperature 36.2 C L 36.4 C L Pulse Rate 64 91 70 Respiratory Rate 18 18 Blood Pressure 90/50 L 100/60 Pulse Oximetry 96 95 Oxygen Delivery Oxygen Flow Rate 11/03/22 22:00 11/03/22 20:36 11/04/22 00:00 Temperature Pulse Rate 62 68 64 Respiratory Rate Blood Pressure Pulse Oximetry Oxygen Delivery Oxygen Flow Rate 11/04/22 04:00 11/03/22 22:11 11/03/22 22:50 Temperature Pulse Rate 65 Respiratory Rate Blood Pressure Pulse Oximetry 96 93 Oxygen Delivery Nasal Cannula Nasal Cannula Oxygen Flow Rate 4 3 11/04/22 06:00 11/04/22 08:00 11/04/22 08:00 Temperature 36.1 C L Pulse Rate 62 56 L Respiratory Rate 21 H Blood Pressure 100/60 Pulse Oximetry 100 100 Oxygen Delivery Nasal Cannula Oxygen Flow Rate 4 Intake/Output Intake/Output: Intake & Output 11/01/22 11/02/22 11/03/22 11/04/22 23:59 23:59 23:59 23:59 Intake Total 2040 2200 536 Output Total 1150 900 775 Balance 890 1300 -239 Meds/Results Medications: Active Medications Generic Name Dose Route Start Last Admin Trade Name Freq PRN Reason Stop Dose Admin Acetaminophen/Codeine Phosphate 1 tab 11/02/22 08:11 Acetaminophen/Codeine (*Crx) 300/30 Mg Tablet PO Q6H PRN pain or cough Carvedilol 3.125 mg 11/02/22 09:00 11/04/22 12:01 Carvedilol 3.125 Mg Tablet PO Not Given Q12HR LAYA Clopidogrel Bisulfate 75 mg 11/02/22 09:00 11/04/22 10:03 Clopidogrel Bisulfate 75 Mg Tablet PO 75 mg DAILY LAYA Administration Dexamethasone Sod
[2022-11-04] MEDS: SACUBITRIL/VALSARTAN 24-26 MG TABLET 1 TAB PO ×2 (13:22→23:52)
[2022-11-05] VITALS (15 sets, daily range): BP systolic 97–110; BP diastolic 54–62; PULSE 57–82; RESP 16–26; TEMP 36.2–36.5; O2SAT 93–100
--- NOTE | 2022-11-05 00:43 | PC.NURSE ---
Carvedilol and furosemide held today due to BP being soft systolic <100. Pt denies any dizziness, fatigue, blurred vision, shortness of breath or chest pain. Entresto given this afternoon.
[2022-11-05 02:05] LABS: Vancomycin Trough 15.4 ug/mL (10.0-20.0)
[2022-11-05 05:12] LABS: INR 1.3; Prothrombin Time 15.3 Seconds (11.1-14.7)
[2022-11-05 05:18] LABS: Alanine Aminotransferase 49 U/L (6-50); Estimated CRCL calculation 89 ml/min; Estimated Glomerular Filt Rate > 60
[2022-11-05] MEDS: EMPAGLIFLOZIN 10 MG TABLET PO (08:01)
[2022-11-05] MEDS: PANTOPRAZOLE 40 MG TABLET PO ×2 (08:01→16:38)
[2022-11-05] MEDS: SACUBITRIL/VALSARTAN 24-26 MG TABLET 1 TAB PO ×2 (08:01→21:04)
[2022-11-05] MEDS: carvediloL 3.125 MG TABLET PO ×2 (08:02→21:04)
[2022-11-05] MEDS: FUROSEMIDE 40 MG TABLET PO ×2 (08:02→16:38)
[2022-11-05] MEDS: ROSUVASTATIN 10 MG TABLET 40 MG PO (08:02)
[2022-11-05] MEDS: CLOPIDOGREL BISULFATE 75 MG TABLET PO (08:02)
[2022-11-05] MEDS: SPIRONOLACTONE 25 MG TABLET PO (08:02)
[2022-11-05] MEDS: ENOXAPARIN 40 MG/0.4 ML SYRINGE SUB-Q (08:03)
[2022-11-05] MEDS: REMDESIVIR 100 MG/NS 250 ML 100 MG/250 ML BAG 250 MG IVPB (09:29)
[2022-11-05 09:42] LABS: Glucose Point of Care 159 mg/dl (65-105)
--- NOTE | 2022-11-05 10:16 | PM.IMPN ---
Progress Note: A&P Assessment and Plan (1) Pneumonia due to COVID-19 virus: Code(s): U07.1 - COVID-19; J12.82 - Pneumonia due to coronavirus disease 2018 Status: Acute (2) COVID: Code(s): U07.1 - COVID-19 Status: Acute (3) Chronic systolic (congestive) heart failure: Code(s): I50.22 - Chronic systolic (congestive) heart failure Status: Acute (4) Hypoxia: Code(s): R09.02 - Hypoxemia Status: Acute (5) CAD (coronary artery disease): Code(s): I25.10 - Atherosclerotic heart disease of [place] coronary artery without angina pectoris Status: Acute Plan Heart failure with reduced ejection fraction 15% Patient refused ICD-life vest Patient's BP of 100/60 Hold BP medicines except Entresto Daily weights Continue Jardiance Antiplatelet & Statin therapy business services sales representative recommended Currently on ceftriaxone and Zithromax. On remdesivir and Decadron for COVID Blood cultures Staph epididymis possible contamination Sputum cultures pending. Patient is DNR DNI Time Spent With Patient Time: DVT prophylaxis. GI prophylaxis. All records reviewed Discussed plan of care with the nursing staff and with the patient in detail. Answered all questions and concerns from the patient. All labs have been reviewed. Code status updated dictation may have been done utilizing a voice recognition system. Attempts have been made to correct errors. However, there may be uncorrected grammatical, spelling, and recognition errors present. Subjective Date/time seen: 11/05/22 10:16 Interval history: Patient said his blurriness in his vision was sitting down blood pressure was normal. Exam Narrative: GENERAL: Well appearing, well-nourished, non-toxic, in no acute distress. HEAD: Normocephalic, atraumatic. NECK: Supple. No adenopathy, no masses. RESPIRATORY: Airway patent, respirations nonlabored. Clear to auscultation bilaterally, no rales, rhonchi, wheezing. CARDIOVASCULAR: Regular rate and rhythm without murmurs, rubs, or gallops. Peripheral pulses 2+ and equal bilaterally. ABDOMINAL: Soft, nontender, nondistended, no hepatosplenomegaly. Normoactive BS. MUSCULOSKELETAL: no Epigastric and no hypochondrial tenderness SKIN: Warm, dry, normal color. No rashes. NEURO: A&O X3. Moves all extremities PSYCHIATRIC: Appropriate mood and affect. Normal interaction. Objective Data Vital Signs Vital Signs: Vital Signs - 24 hr 11/04/22 14:00 11/04/22 12:00 11/04/22 16:00 Temperature 36.6 C Pulse Rate 92 80 77 Respiratory Rate 18 Blood Pressure 104/76 Pulse Oximetry 94 Oxygen Delivery Oxygen Flow Rate 11/04/22 19:44 11/04/22 23:22 11/04/22 20:00 Temperature 36.3 C L 36.4 C Pulse Rate 64 63 63 Respiratory Rate 20 18 Blood Pressure 90/60 L 107/60 Pulse Oximetry 96 97 Oxygen Delivery Oxygen Flow Rate 11/05/22 00:42 11/05/22 00:00 11/05/22 04:11 Temperature 36.2 C L Pulse Rate 58 L 82 66 Respiratory Rate 26 H Blood Pressure 97/54 L Pulse Oximetry 97 Oxygen Delivery Oxygen Flow Rate 11/05/22 04:00 11/05/22 08:02 11/05/22 08:15 Temperature 36.3 C L Pulse Rate 58 L 60 60 Respiratory Rate 16 Blood Pressure 102/62 Pulse Oximetry 100 Oxygen Delivery Oxygen Flow Rate 11/05/22 09:05 11/05/22 08:00 Temperature Pulse Rate 65 Respiratory Rate 16 Blood Pressure 98/60 L Pulse Oximetry 98 100 Oxygen Delivery Nasal Cannula Oxygen Flow Rate 3 Intake/Output Intake/Output: Intake & Output 11/02/22 11/03/22 11/04/22 11/05/22 23:59 23:59 23:59 23:59 Intake Total 2040 2250 2712 740 Output Total 6411 840 1682 400 Balance 890 1350 1137 340 Meds/Results Medications: Active Medications Generic Name Dose Route Start Last Admin Trade Name Freq PRN Reason Stop Dose Admin Acetaminophen/Codeine Phosphate 1 tab 11/02/22 08:11 Acetaminophen/Codeine (*Crx) 300/30 Mg Tablet PO Q6H
--- NOTE | 2022-11-05 15:36 | PC.NURSE ---
On 11/05/22, the student, [Ke Ellison], provided care and completed [facility] documentation on this patient. I have reviewed the student's documentation and agree with the findings.
[2022-11-06 00:32] VITALS: PULSE 60
[2022-11-06 04:00] VITALS: PULSE 64
[2022-11-06 05:55] LABS: INR 1.2; Prothrombin Time 14.8 Seconds (11.1-14.7)
[2022-11-06 05:58] LABS: Alanine Aminotransferase 60 U/L (6-50)
[2022-11-06 06:00] VITALS: BP 92/50; PULSE 64; RESP 18; TEMP 36.2; O2SAT 95
[2022-11-06 08:01] VITALS: PULSE 55
[2022-11-06] MEDS: ROSUVASTATIN 10 MG TABLET 40 MG PO (08:58)
[2022-11-06] MEDS: CLOPIDOGREL BISULFATE 75 MG TABLET PO (08:58)
[2022-11-06 08:59] VITALS: PULSE 72
[2022-11-06] MEDS: PANTOPRAZOLE 40 MG TABLET PO (08:59)
[2022-11-06] MEDS: ENOXAPARIN 40 MG/0.4 ML SYRINGE SUB-Q (08:59)
[2022-11-06] MEDS: carvediloL 3.125 MG TABLET PO (08:59)
[2022-11-06] MEDS: FUROSEMIDE 40 MG TABLET PO (08:59)
[2022-11-06] MEDS: SACUBITRIL/VALSARTAN 24-26 MG TABLET 1 TAB PO (08:59)
[2022-11-06] MEDS: SPIRONOLACTONE 25 MG TABLET PO (08:59)
[2022-11-06] MEDS: EMPAGLIFLOZIN 10 MG TABLET PO (08:59)
[2022-11-06] MEDS: AZITHROMYCIN 250 MG TABLET 500 MG PO (08:59)
[2022-11-06] MEDS: REMDESIVIR 100 MG/NS 250 ML 100 MG/250 ML BAG 250 MG IVPB (09:45)
--- NOTE | 2022-11-06 11:16 | PM.DS ---
DS: Admitting Diagnosis Discharge Date November 06, 2022 Admitting Diagnosis sob DS: Discharge Diagnosis Discharge Diagnosis (1) Pneumonia due to COVID-19 virus: Code(s): U07.1 - COVID-19; J12.82 - Pneumonia due to coronavirus disease 2018 Status: Acute (2) Hypoxia: Code(s): R09.02 - Hypoxemia Status: Acute (3) Chronic systolic (congestive) heart failure: Code(s): I50.22 - Chronic systolic (congestive) heart failure Status: Acute (4) Ischemic cardiomyopathy: Code(s): I25.5 - Ischemic cardiomyopathy Status: Acute DS: Summary Hospital Course Hospital Course: This is an 82-year-old male with past medical history significant for coronary artery disease, GERD, hypertension, stroke.? Patient presents to the emergency room due to shortness of breath tested positive for COVID a few days ago has noticed progressively worsening shortness of breath, body aches and pains,? poor appetite, night sweats, chills, fevers.? History taking is somehow limited patient has dysarthria as a sequela from a stroke. Preliminary workup was significant for chest x-ray was reported as: Patient has been noted to have a congestive heart failure with EF of 15% has declined any ICD or LifeVest. Cardiology was also consulted. Patient was treated with antibiotics for his pneumonia which has resolved patient clinically much improved no signs of hypoxia or tachycardia blood pressure has improved on Entresto and carvedilol will continue to monitor closely patient can be discharged home but to be closely followed with Cardiology and primary care physician outpatient Time Spent with Patient Time attestation: Total time spent providing and/or coordinating discharge services: Exam Narrative: GENERAL: Well appearing, well-nourished, non-toxic, in no acute distress. HEAD: Normocephalic, atraumatic. NECK: Supple. No adenopathy, no masses. RESPIRATORY: Airway patent, respirations nonlabored. Clear to auscultation bilaterally, no rales, rhonchi, wheezing. CARDIOVASCULAR: Regular rate and rhythm without murmurs, rubs, or gallops. Peripheral pulses 2+ and equal bilaterally. ABDOMINAL: Soft, nontender, nondistended, no hepatosplenomegaly. Normoactive BS. MUSCULOSKELETAL: no Epigastric and no hypochondrial tenderness SKIN: Warm, dry, normal color. No rashes. NEURO: A&O X3. Moves all extremities PSYCHIATRIC: Appropriate mood and affect. Normal interaction. DS: Data Data Completed and Pending Labs on day of discharge: Labs from last 24 hours 11/06/22 11/06/22 05:28 05:28 PT 14.8 H INR 1.2 ALT 60 H Preliminary micro results at discharge 11/01/22 23:43 Blood Culture - Preliminary Blood Staphylococcus epidermis 11/03/22 10:30 Blood Culture - Preliminary Blood 11/03/22 10:28 Blood Culture - Preliminary Blood 11/01/22 23:43 Blood Culture - Preliminary Blood Discharge Plan Discharge Consulting providers: Jaki Adamson Discharging Clinician: Abimael Rudolph Patient Disposition: Home, Self-Care Activity: as tolerated Diet: heart healthy Discharge Instructions: For Cardiology and reconsider ICD/life vest Patient Instructions: Antibiotic Form Stand Alone Forms: General Discharge Information Follow-up/Referrals: Lanre Laureano MD [Primary Care Provider] - 1 Week Discharge Medications: Continued spironolactone 25 mg tablet 25 mg PO DAILY Entresto 97-103 mg tablet 1 tablet PO BID Label Comments: refuses to take because it is too expensive carvedilol 3.125 mg tablet 3.125 mg PO BID Label Comments: refuses BID only take x1 daily furosemide 40 mg tablet 40 mg PO BID Rx Instructions: pt refuses to take for a year clopidogrel 75 mg tablet 75 mg PO DAILY Qty: 90 1RF rosuvastatin 40 mg tablet 40 mg PO DAILY Qty: 90 1RF pantoprazole 40 mg tablet,delayed release (DR/EC) 40 mg PO BID Qty: 180 4R
[2022-11-06 14:00] VITALS: BP 105/59; PULSE 65; RESP 16; TEMP 36.7; O2SAT 97
== END 2022-11-06 15:45 | disposition home or self-care (01) | DRG 177 ==
LOC: ANHED 23:37 → ANH2MED 11-02 00:04
PROVIDERS: Internal Medicine; Admitting Provider Internal Medicine; Emergency Provider Emergency Medicine; PCP Family Medicine Adolescent Medicine; Visit Provider Internal Medicine
DX: U07.1 COVID-19 (principal); J12.82 Pneumonia due to coronavirus disease 2019; I50.22 Chronic systolic (congestive) heart failure; I11.0 Hypertensive heart disease with heart failure; I25.5 Ischemic cardiomyopathy; I25.10 Atherosclerotic heart disease of native coronary artery without angina pectoris; J43.9 Emphysema, unspecified; E78.5 Hyperlipidemia, unspecified; K21.9 Gastro-esophageal reflux disease without esophagitis; R09.02 Hypoxemia; M19.90 Unspecified osteoarthritis, unspecified site; I69.322 Dysarthria following cerebral infarction; I25.2 Old myocardial infarction; Z95.5 Presence of coronary angioplasty implant and graft; Z87.891 Personal history of nicotine dependence
CPT/HCPCS: 36415; 51701; 71045; 80053; 80202; 81001; 82565; 82728; 82948; 83735; 83880; 84145; 84460; 85025; 85610; 85730; 86140; 87040; 87147; 87181; 87186; 87637; 93005; 96374; 97110; 97161; 97165; 97530; 97535; 99285; A9270; C8929; J0248; J0456; J0696; J1100; J1650; J1940; J3370; Q9957

== ENCOUNTER 2024-07-08 12:07 | Outpatient (CLI) | payer OTHER, SELFPAY ==
--- NOTE | ~2024-07-08 | XR_ITS ---
XR knee LT min 4V DATE: 07/08/2024 12:28 INDICATION: Severe knee pain, knee gives out. No known injury. TECHNIQUE: 4 views COMPARISON: None FINDINGS: Osteopenia. There is slight periarticular spurring of the patella. There is moderate loss of medial compartment joint space height. No fracture or dislocation or joint effusion. No radiopaque intra-articular loose body or chondrocalc inosis. No periosteal reaction or bone destruction. There is extensive calcification of the femoral, popliteal and trifurcation arteries. IMPRESSION: Osteopenia Mild to moderate osteoarthritis Prominent arterial calcification Reviewed, dictated and finalized at location A.
== END 2024-07-08 12:08 | disposition home or self-care (01) ==
PROVIDERS: PCP Family Medicine Adolescent Medicine; Visit Provider Family Medicine
DX: M85.88 Other specified disorders of bone density and structure, other site (principal); M17.12 Unilateral primary osteoarthritis, left knee; M25.862 Other specified joint disorders, left knee
CPT/HCPCS: 73564

== ENCOUNTER 2024-08-18 08:44 | Inpatient (IN) | payer OTHER, SELFPAY ==
[2024-08-18] VITALS (19 sets, daily range): BP systolic 100–126; BP diastolic 58–98; PULSE 94–122; RESP 9–36; TEMP 36.3–36.8; O2SAT 87–100; BMI 22.0
--- NOTE | 2024-08-18 | ECHO_ITS ---
Patient Info Name: Ross Canchola Age: 84 years : 1940 Gender: Male Ht: 72 in Wt: 162 lbs BSA: 1.93 m2 Heart Rhythm: Indeterminant Technical Quality: Good Exam Date: 08/18/2024 3:42 PM Exam Location: Echo Lab Patient Status: Outpatient Admit Date: 08/18/2024 Staff Ordering Physician: Rosangela Baptiste MD (flakita/dorene) Needlemaker: Rosa Cook RDCS Attending Provider: Hermelindo Jara MD Referring Physician: Emile COLÓN; Exam Type: CA echo doppler color flow Study Info Indications - chf Complete two-dimensional, color flow and Doppler transthoracic echocardiogram is performed with contrast to opacify the left ventricle and to improve the deliniation of the left ventricle endocardial borders. Summary 1. Left ventricular chamber dimension is moderately enlarged. 2. Left ventricular systolic function is severely reduced, estimated at 20-25%. 3. There is mildly increased left ventricular wall thickness. 4. Right ventricular chamber dimension is normal. 5. Right ventricular systolic function is reduced. 6. Left atrial chamber dimension is mildly enlarged. 7. Right atrial chamber dimension is moderately enlarged. 8. There is mild to moderate mitral valve regurgitation. 9. There is mild to moderate tricuspid valve regurgitation. RVSP 66 mm Hg. 10. There is mild pulmonic regurgitation. 11. Pleural effusion. Left Ventricle Left ventricular chamber dimension is moderately enlarged. Left ventricular systolic function is severely reduced, estimated at 20-25%. There is mildly increased left ventricular wall thickness. The left ventricular diastolic function is abnormal. Right Ventricle Right ventricular chamber dimension is normal. Right ventricular systolic function is reduced. Left Atria Left atrial chamber dimension is mildly enlarged. Right Atria Right atrial chamber dimension is moderately enlarged. Atrial Septum Intact interatrial septum visualized by 2D and color flow imaging. Aortic Valve The aortic valve is trileaflet. There is no aortic valve stenosis. There is no aortic valve regurgitation. There is mild aortic valve calcification. Pulmonic Valve The pulmonic valve is normal. There is no pulmonic valve stenosis. There is mild pulmonic regurgitation. Mitral Valve The mitral valve has normal leaflets. There is no mitral valve stenosis. There is mild to moderate mitral valve regurgitation. Tricuspid Valve The tricuspid valve leaflets are normal. There is no significant tricuspid valve stenosis. There is mild to moderate tricuspid valve regurgitation. RVSP 66 mm Hg. Inferior Vena Cava Dilated inferior vena cava with <50% collapse upon inspiration consistent with elevated right atrial pressure, 10 mmHg. Aorta The aortic root size at the sinus of Valsalva is normal. Left Ventricular Outflow Tract Name Value Normal LVOT 2D LVOT Diameter 1.9 cm LVOT Doppler LVOT Peak Gradient 3 mmHg LVOT Mean Gradient 2 mmHg LVOT VTI 13 cm LVOT VTI/AV VTI Ratio 0.8 LVOT Stroke Volume 37 ml LVOT CO 3.7 l/min LVOT CI 1.9 l/min/m2 Mitral Valve Name Value Normal MV Doppler MV Decel [place] 563 cm/s2 MV PHT 40 ms MV Area (PHT) 5.4 cm2 4.0-5.0 MV Regurgitation Doppler MR Peak Gradient 44 mmHg MV Diastolic Function MV E Peak Velocity 78 cm/s MV A Peak Velocity 2 cm/s MV E/A 33.6 MV Decel Time 139 ms MV Annular TDI MV E/e' (Septal) 35.3 <=8.0 MV E/e' (Lateral) 16.9 <=8.0 MV E/e' (Average) 26.1 Tricuspid Valve Name Value Normal TV Regurgitation Doppler TR Peak Velocity 359 cm/s TR Peak Gradient 51 mmHg Estimated PAP/RSVP RA Pressure 10 mmHg <=5 PA Systolic Pressure 61 mmHg <36 RV Systolic Pressure 61 mmHg <36 Aortic Valve Name Value Normal AV Doppler AV Peak Velocity 117 cm/s AV Peak Gradient 6 mmHg AV Mean Gradient 3 mmHg AV VTI 16 cm AV Area (Cont Eq VTI) 2.4 cm2 >=3.0 AV Area (Cont Eq Miguel Ángel) 1.9 cm2 AV Regurgitation 2D LVOT Area 2.8 cm2 Ventricles Name Value Normal LV Dimensions 2D/MM IVS Diastolic Thickness (2D) 0.9 cm 0.6-1.0 LVID Diastole (2D) 5.6 cm 4.2-5.8 LVIW Diastolic Thickness (2D) 0.9 cm 0.6-1.0 LVID Systole (2D) 4.4 cm 2.5-4.0 LVOT Diameter 1.9 cm LV Mass (2D Cubed) 200.47 g 88.00-224.00 LV Mass Index (2D Cubed) 104 g/m2 49-115 Relative Wall Thickness (2D) 0.33 LV Fractional Shortening/Ejection Fraction 2D/MM LV Fractional Shortening (2D) 22 % 25-43 LV EF (2D Teicholz) 43 % 52-72 LV Diastolic Volume (4C MOD) 188 ml LV EF (4C MOD) 44 % LV Diastolic Volume (2C MOD) 227 ml LV EF (2C MOD) 31 % LV Diastolic Volume (BP MOD) 213 ml 62-150 LV Diastolic Volume Index (BP MOD) 110 ml/m2 34-74 LV Systolic Volume (BP MOD) 132 ml 21-61 LV Systolic Volume Index (BP MOD) 69 ml/m2 11-31 LV EF (BP MOD) 38 % 52-72 LV Diastolic Length (4C) 9.0 cm LV Systolic Length (4C) 8.5 cm LV Stroke Volume (4C MOD) 82 ml Atria Name Value Normal LA Dimensions LA Volume (4C A-L) 46 ml LA Volume (BP A-L) 71 ml RA Dimensions RA Area (4C) 24.6 cm2 <=18.0 Report Signatures
--- NOTE | ~2024-08-18 | MR_ITS ---
EXAMINATION: MRA brain wo con DATE: 08/19/2024 12:47 INDICATION: New dysarthria TECHNIQUE: Magnetic resonance angiography (MRA) of the brain was performed without intravenous contrast by the 3 D [id number] technique. COMPARISON: None. FINDINGS: There is normal flow related signal seen within the vertebral, basilar and internal carotid arteries. There are no aneurysms identified. Both A1 and P1 segments are patent. The right P1 segment is dimi nutive with larger quantity of flow supplied to the right posterior cerebral artery via a patent righ t posterior communicating artery. There is a mild to moderate stenosis at the origin of the right A1 segment. There is no other proximal stenosis. Flow in the more peripheral cerebral arteries is symme tric. Small old cortical infarcts in the bilateral basal ganglia. Additional small old infarct in the right occipital lobe. IMPRESSION: 1. Mild to moderate stenosis along the left A1 segment. 2. Small old right occipital lobe infarct and additional small old lacunar infarcts at the bilateral basal ganglia. Reviewed, dictated and finalized at location A. IMPRESSION: 1. Mild to moderate stenosis along the left A1 segment. 2. Small old right occipital lobe infarct and additional small old lacunar infa rcts at the bilateral basal ganglia.
--- NOTE | ~2024-08-18 | XR_ITS ---
XR chest 1V portable Ordering provider: Tyrone Mon NP History: 84 years Male with . SOB . Comparison: August 18, 2024 FINDINGS: MEDIASTINUM: The cardiac silhouette is slightly enlarged. Prominent both pamela. LUNGS: No pneumothorax. Opacification the left lower lobe area suggestive of atelectasis versus pneum onia. Haziness over the right hemithorax which may indicate tracking effusion. Follow-up advised. OTHER: No free air under the diaphragm. IMPRESSION: Left basilar atelectasis versus pneumonia. Highly suggestive tracking effusion the right side. Cardiomegaly with congestive pamela which may indicate cardiac decompensation. Reviewed, dictated and finalized at location A. [employer] TECHNICIAN
--- NOTE | ~2024-08-18 | XR_ITS ---
EXAMINATION: XR chest 2V DATE: 08/18/2024 10:29 INDICATION: Shortness of breath TECHNIQUE: frontal and lateral views of the chest were obtained. COMPARISON: Chest radiograph dated 11/01/[address] dated 11/22/2018 FINDINGS: Interstitial and airspace opacities in the bilateral lower lungs with dependent predominance which co uld represent mild pulmonary edema or pneumonia in the appropriate clinical setting. There are also s mall bilateral pleural effusions with associated compressive atelectasis at the posterior lung bases. No pneumothorax. Calcified nodule at the right upper lobe consistent with old granulomatous disease. Borderline heart size accounting for AP technique. Coronary artery stenting. There is also enlargeme nt of the central pulmonary arteries which can be seen with pulmonary arterial hypertension. Mild tho racic spondylosis with chronic mild anterior wedging of a few vertebral bodies at the thoracolumbar j unction. IMPRESSION: 1. Small bilateral pleural effusions with opacities at the bilateral lower lung zones and favor mild pulmonary edema over pneumonia. 2. Borderline heart size and enlargement of the central pulmonary arteries consistent with pulmonary arterial hypertension. Reviewed, dictated and finalized at location A. IMPRESSION: 1. Small bilateral pleural effusions with opacities at the bilateral lower lung zones and favor mild pulmonary edema over pneumonia. 2. Borderline heart size and enlargement of the central pulmonary arteries cons istent with pulmonary arterial hypertension.
--- NOTE | ~2024-08-18 | US_ITS ---
EXAMINATION: US abdomen limited DATE: 08/19/2024 12:52 INDICATION: Elevated liver function tests TECHNIQUE: Multiple grayscale and Doppler ultrasound images of the abdomen were obtained. COMPARISON: None FINDINGS: The pancreatic head and body are normal in appearance. The pancreatic tail is not visualized. Liver has normal echogenicity and contour, with a smooth surface. There is a 1 cm very hypoechoic lesion po tentially cystic with thin internal septation at the anterior left hepatic lobe. No intrahepatic bili maximiliano duct dilation suspected. Portal venous flow was seen in the hepatopetal, normal direction and has normal Doppler waveform. The visualized proximal aorta and inferior vena cava are normal. Gallbladde r is nonvisualized and likely surgically absent. The common bile duct measures up to 14 mm in diamete r likely related to prior cholecystectomy. Visualized portion of the right kidney demonstrates normal echogenicity and contour with no hydronephrosis. Incidentally noted right pleural effusion. IMPRESSION: 1. Dilation of the common bile duct to 14 mm but without intrahepatic ductal or ductal dilation. Alth ough likely related to prior cholecystectomy, could not exclude a nonvisualized obstructing stone giv en the elevated liver function tests would consider MRCP for further evaluation. 2. Indeterminate 1 cm hepatic lesion for which further evaluation with pre and postcontrast MRI would be recommended. This could be performed at the same time as the MRCP. 3. Right pleural effusion. Reviewed, dictated and finalized at location A. IMPRESSION: 1. Dilation of the common bile duct to 14 mm but without intrahepatic ductal or ductal dilation. Although likely related to prior cholecystectomy, could not e xclude a nonvisualized obstructing stone given the elevated liver function test s would consider MRCP for further evaluation. 2. Indeterminate 1 cm hepatic lesion for which further evaluation with pre and postcontrast MRI would be recommended. This could be performed at the same time as the MRCP. 3. Right pleural effusion.
--- NOTE | ~2024-08-18 | NM_ITS ---
EXAMINATION: NM lung vent and perfusion DATE: 08/18/2024 13:25 INDICATION: Shortness of breath. TECHNIQUE: 15.245 mCi Xenon-133 was given for ventilation images. 5.5 mCi Tc-99m MAA was administered intravenously for perfusion images. Scintigraphic images of the chest were obtained. COMPARISON: Chest 2 views 08/18/2024, chest CT 11/22/2018, ventilation/perfusion scintigraphy 11/29/2012 FINDINGS: Ventilation images demonstrate diffuse retention bilaterally. There are large matched defects through out the lower lobes. IMPRESSION: 1. Intermediate probability for pulmonary embolism. Reviewed, dictated and finalized at location B.
--- NOTE | 2024-08-18 08:54 | ECG_ITS ---
Test Date: 2024-08-18 08:57:44 Measurements Intervals [place] Rate: 115 P: 0 WV: 0 QRS: -14 QRSD: 178 T: 241 QT: 383 QTc: 531 Interpretive Statements ATRIAL FIBRILLATION WITH RAPID VENTRICULAR RESPONSE LEFT BUNDLE BRANCH BLOCK BASELINE ARTIFACT- I, II, III, AVR, AVL, AVF, V4-V6 ABNORMAL ECG No previous ECG available for comparison Electronically Signed On 08-18-2024 10:27:33 CDT by Richard Lovelace D.O.
[2024-08-18 09:25] LABS: Basophils Absolute Auto 0.1 K/mm3 (0.0-0.1); Basophils Percent Auto 0.5 % (0.2-1.2); Eosinophils Percent Auto 0.2 % (0-4.4); Hematocrit 45.3 % (42.0-52.0); Hemoglobin 14.6 g/dL (14.0-18.0); Immature Granulocyte Absolute 0.11 K/mm3 (0.00-0.031); Immature Granulocyte Percent A 0.9 % (0-0.5); Immature Platelet Fraction Pct 5.3 % (0.9-11.2); Lymphocytes Absolute Auto 1.61 K/mm3 (0.9-3.2); Lymphocytes Percent Auto 12.7 % (18.3-44.2); Mean Corpuscular HGB Conc 32.2 g/dl (32-36); Mean Corpuscular Hemoglobin 31.7 pg (26-34); Mean Corpuscular Volume 98.5 fl (80-100); Mean Platelet Volume 10.6 fl (7.4-10.4); Monocytes Absolute Auto 1.3 K/mm3 (0.1-0.6); Monocytes Percent Auto 9.8 % (2.6-8.5); Neutrophils Absolute Auto 9.7 K/mm3 (1.3-6.7); Neutrophils Percent Auto 75.9 % (45.5-73.1); Nucleated Red Blood Cells Perc 0.4 % (0.0-0.2); Platelet Count Result 196 k/mm3 (150-375); Red Cell Distribution Width 15.7 % (11.5-14.5); White Blood Count 12.7 K/mm3 (4.5-10.0)
--- NOTE | 2024-08-18 09:30 | ED_ITS ---
HPI - SOB/Dyspnea General Chief Complaint: Shortness of Breath/Dyspnea <Mary Ellen Almonte PA-C - Last Filed: 08/18/24 15:32> Stated Complaint: SOB, weakness <PREETI Quinonez Last Filed: 08/18/24 15:32> Time Seen by Provider: 08/18/24 09:06 <PREETI Quinonez Last Filed: 08/18/24 15:32> Source: patient <PREETI Quinonez Last Filed: 08/18/24 15:32> Mode of arrival: EMS <PREETI Quinonez Last Filed: 08/18/24 15:32> Limitations: no limitations <PREETI Quinonez Last Filed: 08/18/24 15:32> History of Present Illness HPI Narrative: This is a 84 year old male that presents to the ER for shortness of breath. Worsening over the last couple of weeks. Worse with exertion. Reports history of CHF and CAD. He has been taking his Lasix as prescribed. Reports some lower extremity edema. Denies fever, cough, chest pain. <PREETI Quinonez Last Filed: 08/18/24 15:32> Related Data Home Medications: Home Medications Medication Instructions Recorded Confirmed carvedilol 3.125 mg tablet 3.125 mg PO DAILY 08/18/24 08/18/24 clopidogrel 75 mg tablet 75 mg PO DAILY 08/18/24 08/18/24 fluorouracil 5 % topical cream 1 applic topical DAILY 08/18/24 08/18/24 furosemide 40 mg tablet 60 mg PO DAILY 08/18/24 08/18/24 ipratropium bromide 42 mcg (0.06 2 spray intranasal TID 08/18/24 08/18/24 %) nasal spray pantoprazole 40 mg tablet,delayed 40 mg PO DAILY 08/18/24 08/18/24 release spironolactone 25 mg tablet 25 mg PO DAILY 08/18/24 08/18/24 trazodone 150 mg tablet 150 mg PO DAILY 08/18/24 08/18/24 <PREETI Quinonez Last Filed: 08/18/24 15:32> Allergies/Adverse Reactions: Allergies Allergy/AdvReac Type Severity Reaction Status Date / Time Iodine and Iodide Containing Allergy Severe CARDIAC Verified 07/07/24 08:20 Produc ARREST iodixanol Allergy Severe CARDIAC Verified 07/07/24 08:20 ARREST <Mary Ellen Almonte PA-C - Last Filed: 08/18/24 15:32> Review of Systems Review of Systems: CONSTITUTIONAL: Denies fever CARDIOVASCULAR: Reports edema. Denies chest pain RESPIRATORY: Reports dyspnea. Denies cough <Mary Ellen Almonte PA-C - Last Filed: 08/18/24 15:32> All systems reviewed & are unremarkable except as noted in HPI and below <PREETI Quinonez Last Filed: 08/18/24 15:32> [facility] Past Medical History Medical History: Medical History Anemia Arthritis CAD (coronary artery disease) COVID-19 GERD (gastroesophageal reflux disease) HLD (hyperlipidemia) HTN (hypertension) Myocardial infarct Shortness of breath <PREETI Quinonez Last Filed: 08/18/24 15:32> Surgical History Surgical History: Surgical History H/O vasectomy History of appendectomy History of left-sided carotid endarterectomy 12/08 Hx of heart artery stent S/P angioplasties S/P cholecystectomy <PREETI Quinonez Last Filed: 08/18/24 15:32> Family History Family History: Family History Mother Diabetes mellitus Family history of malignant neoplasm <PREETI Quinonez Last Filed: 08/18/24 15:32> Social History Social History: Social History Smoking packs per day: 2 Smoking cigarettes per day: 40.0 Years smoked: 30 Smoking pack-years: 60.00 Smoking status: Former smoker Tobacco type: cigarettes Second hand tobacco smoke exposure: No Alcohol intake: former Substance use: never Substance use type: does not use Do You Feel Safe in your Home?: Yes Lack of Transportation: YES Lack of Food: Never True Current Housing: I Have Housing Concerned About Future Housing: No Difficulty Paying Gas/Electric Bills: No Difficulty Paying for Meds: No Currently Unemployed: No Education: High School Diploma/GED Difficulty w/ Childcare or Family Care: No Living arrangements: with family Occupation/Education: retired Gender identity (if verbalized by the patient): Male Spiritual care concerns: No Agree to blood products: Yes <Mary Ellen Almonte PA-C - Last Filed: 08/18/24 15:32> Exam Narrative: GENERAL: Elderly, well-nourished, and in no acute distress. HEAD: Normocephalic, atraumatic. EYES: EOMI. ENT: Nares clear, no rhinorrhea or epistaxis. Mucous membranes moist. Oropharynx without tonsillar hypertrophy exudate or other lesions. Bilateral TMs pearly plata non-bulging NECK: Supple. No adenopathy or masses. CHEST: No respiratory distress. Rales in the bilateral lower lobes. No wheezes or rhonchi HEART: Regular rate and rhythm. No murmur heard. Normal peripheral pulses. EXTREMITIES: Normal range of motion. 1+ pitting edema to the bilateral lower extremities (5/5) SKIN: Warm, dry, no rash. NEURO: No focal deficits. Alert and oriented x3. PSYCH: Normal mood and affect <Mary Ellen Almonte PA-C - Last Filed: 08/18/24 15:32> Course [employer] [employer]ER/PA Physician Supervision I was in the ED and available for consultation but did not personally evaluate this patient and was not involved in their care. <Rosalina Muñoz MD - Last Filed: 08/18/24 23:17> Consultations Consultation #1: Spoke with hospitalist about patient and workup who accepts admission <Mary Ellen Almonte PA-C - Last Filed: 08/18/24 15:32> Date: 08/18/24 <Mary Ellen Almonte PA-C - Last Filed: 08/18/24 15:32> Consultation #2: Spoke with cardiology who will consult <Mary Ellen Almonte PA-C - Last Filed: 08/18/24 15:32> Date: 08/18/24 <Mary Ellen Almonte PA-C - Last Filed: 08/18/24 15:32> Vital Signs Vital signs: Vital Signs Temperature 97.6 F 08/18/24 08:46 Pulse Rate 122 H 08/18/24 08:46 Respiratory Rate 27 H 08/18/24 08:46 Pulse Oximetry 87 L 08/18/24 08:46 Oxygen Delivery Room Air 08/18/24 08:46 Oxygen Flow Rate 2 08/18/24 08:46 Temperature 97.6 F 08/18/24 19:48 Pulse Rate 112 H 08/18/24 21:36 Respiratory Rate 22 H 08/18/24 19:48 Blood Pressure 121/60 08/18/24 19:48 Pulse Oximetry 96 08/18/24 19:48 Oxygen Delivery Nasal Cannula 08/18/24 08:46 Oxygen Flow Rate 2 08/18/24 08:46 <Mary Ellen Almonte PA-C - Last Filed: 08/18/24 15:32> Vital Signs Temperature 97.6 F 08/18/24 08:46 Pulse Rate 122 H 08/18/24 08:46 Respiratory Rate 27 H 08/18/24 08:46 Pulse Oximetry 87 L 08/18/24 08:46 Oxygen Delivery Room Air 08/18/24 08:46 Oxygen Flow Rate 2 08/18/24 08:46 Temperature 97.6 F 08/18/24 19:48 Pulse Rate 112 H 08/18/24 21:36 Respiratory Rate 22 H 08/18/24 19:48 Blood Pressure 121/60 08/18/24 19:48 Pulse Oximetry 96 08/18/24 19:48 Oxygen Delivery Nasal Cannula 08/18/24 08:46 Oxygen Flow Rate 2 08/18/24 08:46 <Rosalina Muñoz MD - Last Filed: 08/18/24 23:17> MDM - SOB/Dyspnea MDM Narrative Medical decision making narrative: Patient presents to the emergency department for worsening dyspnea. Ongoing over the last couple of weeks. Patient tachycardic and tachypneic upon arrival. Also noted to be hypoxic with oxygen saturation in the upper 80s. Placed on 2 L nasal cannula with improvement. CBC with leukocytosis to 12.7. Metabolic panel without concerning findings. Patient noted to have bilateral lower extremity edema. Chest x-ray showing bilateral pleural effusions with mild pulmonary edema. BNP 20,500. Troponin is elevated, likely due to heart failure exacerbation. D-dimer elevated, a nuclear medicine scan will be obtained due to patient's iodine allergy. Patient given dose of IV Lasix in the ED. Also given a dose of metoprolol for AFib with RVR with normalization of his rate. Spoke with hospitalist about patient and workup who accepts admission. Spoke with cardiology who will consult <Mary Ellen Almonte PA-C - Last Filed: 08/18/24 15:32> Differential Diagnosis Differential diagnosis: Likely congestive heart failure, community acquired pneumonia and pulmonary embolism <Mary Ellen Almonte PA-C - Last Filed: 08/18/24 15:32> Lab Data Attestation: I reviewed the patient's lab results. <Mary Ellen Almonte PA-C - Last Filed: 08/18/24 15:32> Result diagrams: 08/18/24 09:12 08/18/24 09:12 <Mary Ellen Almonte PA-C - Last Filed: 08/18/24 15:32> Labs: Lab Results 08/18/24 08/18/24 Range/Units 09:12 09:15 WBC 12.7 H (4.5-10.0) K/mm3 RBC 4.60 (4.6-6.20) M/mm3 Hgb 14.6 (14.0-18.0) g/dL Hct 45.3 (42.0-52.0) % MCV 98.5 (80-100) fl MCH 31.7 (26-34) pg MCHC 32.2 (32-36) g/dl RDW 15.7 H (11.5-14.5) % Plt Count 196 (150-375) k/mm3 MPV 10.6 H (7.4-10.4) fl Immature Gran % (Auto) 0.9 H (0-0.5) % Neut % (Auto) 75.9 H (45.5-73.1) % Lymph % (Auto) 12.7 L (18.3-44.2) % Wall[place] % (Auto) 9.8 H (2.6-8.5) % Eos % (Auto) 0.2 (0-4.4) % Baso % (Auto) 0.5 (0.2-1.2) % Lymph # (Auto) 1.61 (0.9-3.2) K/mm3 [place] # (Auto) 1.3 H (0.1-0.6) K/mm3 Eos # (Auto) 0.0 (0-0.3) K/mm3 Baso # (Auto) 0.1 (0.0-0.1) K/mm3 Abs Immat Gran (auto) 0.11 H (0.00-0.031) K/mm3 Absolute Neuts (auto) 9.7 H (1.3-6.7) K/mm3 Absolute Nucleated RBC 0.050 H (0.0-0.012) K/mm3 Nucleated RBC % 0.4 H (0.0-0.2) % Platelet Estimate Adequate (Adequate) % Immature Plt Fraction 5.3 (0.9-11.2) % Miya Cells 1+ Schistocytes None seen PT 17.2 H (11.1-14.7) Seconds INR 1.4 APTT 28.7 (22.3-36.8) Seconds D-Dimer 6.44 H (<0.48) ug/mL Sodium 134 L (137-145) mmol/L Potassium 4.6 (3.4-5.0) mmol/L Chloride 98 (98-107) mmol/L Carbon Dioxide 22 (22-30) mmol/L Anion Gap 14 H (4-12) mmol/L BUN 30 H (9-20) mg/dL Creatinine 1.00 (0.7-1.3) mg/dL Estim Creat Clear Calc 52 ml/min Estimated GFR > 60 (59 - ) Glucose 146 H (65-110) mg/dL Calcium 9.3 (8.4-10.2) mg/dL Total Bilirubin 3.7 H (0.2-1.3) mg/dL AST 210 H (17-59) U/L ALT 190 H (6-50) U/L Alkaline Phosphatase 95 (38-126) U/L Troponin I 0.050 H* (0.000-0.034) ng/mL NT-Pro-B Natriuret Pep 24132 H (19.9-100) pg/mL Total Protein 7.0 (6.3-8.2) g/dL Albumin 4.5 (3.5-5.1) g/dL Lipase 72 (23-300) U/L TSH 2.580 (0.465-4.680) uIU/mL <Mary Ellen Almonte PA-C - Last Filed: 08/18/24 15:32> Lab Results 08/18/24 08/18/24 Range/Units 09:12 09:15 WBC 12.7 H (4.5-10.0) K/mm3 RBC 4.60 (4.6-6.20) M/mm3 Hgb 14.6 (14.0-18.0) g/dL Hct 45.3 (42.0-52.0) % MCV 98.5 (80-100) fl MCH 31.7 (26-34) pg MCHC 32.2 (32-36) g/dl RDW 15.7 H (11.5-14.5) % Plt Count 196 (150-375) k/mm3 MPV 10.6 H (7.4-10.4) fl Immature Gran % (Auto) 0.9 H (0-0.5) % Neut % (Auto) 75.9 H (45.5-73.1) % Lymph % (Auto) 12.7 L (18.3-44.2) % [place] % (Auto) 9.8 H (2.6-8.5) % Eos % (Auto) 0.2 (0-4.4) % Baso % (Auto) 0.5 (0.2-1.2) % Lymph # (Auto) 1.61 (0.9-3.2) K/mm3 [place] # (Auto) 1.3 H (0.1-0.6) K/mm3 Eos # (Auto) 0.0 (0-0.3) K/mm3 Baso # (Auto) 0.1 (0.0-0.1) K/mm3 Abs Immat Gran (auto) 0.11 H (0.00-0.031) K/mm3 Absolute Neuts (auto) 9.7 H (1.3-6.7) K/mm3 Absolute Nucleated RBC 0.050 H (0.0-0.012) K/mm3 Nucleated RBC % 0.4 H (0.0-0.2) % Platelet Estimate Adequate (Adequate) % Immature Plt Fraction 5.3 (0.9-11.2) % Miya Cells 1+ Schistocytes None seen PT 17.2 H (11.1-14.7) Seconds INR 1.4 APTT 28.7 (22.3-36.8) Seconds D-Dimer 6.44 H (<0.48) ug/mL Sodium 134 L (137-145) mmol/L Potassium 4.6 (3.4-5.0) mmol/L Chloride 98 (98-107) mmol/L Carbon Dioxide 22 (22-30) mmol/L Anion Gap 14 H (4-12) mmol/L BUN 30 H (9-20) mg/dL Creatinine 1.00 (0.7-1.3) mg/dL Estim Creat Clear Calc 52 ml/min Estimated GFR > 60 (59 - ) Glucose 146 H (65-110) mg/dL Calcium 9.3 (8.4-10.2) mg/dL Total Bilirubin 3.7 H (0.2-1.3) mg/dL AST 210 H (17-59) U/L ALT 190 H (6-50) U/L Alkaline Phosphatase 95 (38-126) U/L Troponin I 0.050 H* (0.000-0.034) ng/mL NT-Pro-B Natriuret Pep 50559 H (19.9-100) pg/mL Total Protein 7.0 (6.3-8.2) g/dL Albumin 4.5 (3.5-5.1) g/dL Lipase 72 (23-300) U/L TSH 2.580 (0.465-4.680) uIU/mL <Rosalina Muñoz MD - Last Filed: 08/18/24 23:17> Imaging Data Radiologist's impression: ITS Impressions Chest X-Ray 08/18/24 10:31 IMPRESSION: 1. Small bilateral pleural effusions with opacities at the bilateral lower lung zones and favor mild pulmonary edema over pneumonia. 2. Borderline heart size and enlargement of the central pulmonary arteries consistent with pulmonary arterial hypertension. <Mary Ellen Almonte PA-C - Last Filed: 08/18/24 15:32> ECG Data EKG #1: ECG completion date: 08/18/24 <Mary Ellen Almonte PA-C - Last Filed: 08/18/24 15:32> EKG Interpretation: atrial fibrillation (with RVR) and LBBB <Mary Ellen Almonte PA-C - Last Filed: 08/18/24 15:32> Critical Care Time Critical Care Time Critical Care Time: Yes <Mary Ellen Almonte PA-C - Last Filed: 08/18/24 15:32> Total Critical Care Time: 35 <Mary Ellen Almonte PA-C - Last Filed: 08/18/24 15:32> Discharge Plan Discharge Clinical Impression: Atrial fibrillation with RVR, Acute hypoxic respiratory failure Acute CHF Qualifiers: Heart failure type: unspecified Qualified Code(s): I50.9 - Heart failure, unspecified <Mary Ellen Almonte PA-C - Last Filed: 08/18/24 15:32> Patient Disposition: Still a Patient <Mary Ellen Almonte PA-C - Last Filed: 08/18/24 15:32> Condition: Improved <Mary Ellen Almonte PA-C - Last Filed: 08/18/24 15:32>
[2024-08-18 09:33] LABS: Alanine Aminotransferase 190 U/L (6-50); Albumin Level 4.5 g/dL (3.5-5.1); Alkaline Phosphatase 95 U/L (38-126); Anion Gap 14 mmol/L (4-12); Aspartate Amino Transferase 210 U/L (17-59); Bilirubin,Total 3.7 mg/dL (0.2-1.3); Blood Urea Nitrogen 30 mg/dL (9-20); Calcium 9.3 mg/dL (8.4-10.2); Carbon Dioxide 22 mmol/L (22-30); Chloride 98 mmol/L (98-107); Estimated CRCL calculation 52 ml/min; Estimated Glomerular Filt Rate > 60; Glucose 146 mg/dL (65-110); Potassium 4.6 mmol/L (3.4-5.0); Sodium 134 mmol/L (137-145)
[2024-08-18 09:34] LABS: INR 1.4; Prothrombin Time 17.2 Seconds (11.1-14.7)
[2024-08-18 09:35] LABS: Partial Thromboplastin Time 28.7 Seconds (22.3-36.8)
[2024-08-18 09:42] LABS: NT Pro B Type Natriuretic Pept 20500 pg/mL (19.9-100)
[2024-08-18 09:51] LABS: Lipase 72 U/L (23-300)
[2024-08-18 09:52] LABS: Burr Cells 1+; Platelet Estimate Adequate (Adequate)
[2024-08-18 09:53] LABS: Schistocytes None Seen
[2024-08-18] MEDS: FUROSEMIDE INJ 100 MG/10 ML VIAL 80 MG IV PUSH ×2 (10:00→17:41)
[2024-08-18 10:07] LABS: D Dimer 6.44 ug/mL (<0.48)
[2024-08-18] MEDS: METOPROLOL TARTRATE INJ 5 MG/5 ML VIAL IV PUSH (10:46)
--- NOTE | 2024-08-18 13:20 | PC.NURSE ---
RN notified pt spouse Madelin Sushant of admission with POC & room number
--- NOTE | 2024-08-18 13:49 | P.CONCA_ITS ---
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 Repeat echocardiogram ordered. * Takes Lasix 80mg once daily at home. Continue with IV Lasix, will do 80mg IV BID. Please monitor strict I/Os. * Has been unable to afford Entresto. Continue home dose of Lisinopril 5mg daily. * Continue home Spironolactone 25mg daily. * On Coreg 3.125mg BID at home, however, given AFIB, will switch to Toprol, which will also allow for more blood pressure room to uptitrate heart failure GDMT. * Has refused ICD for primary prevention in the past. (2) Atrial fibrillation with RVR: Code(s): I48.91 - Unspecified atrial fibrillation Status: Acute Assessment and Plan: * New diagnosis for the patient. * Check TSH level. * Start Toprol. * [id number] of 7. Recommend anticoagulation for stroke prophylaxis. Discussed with patient, including risks vs benefits. Patient is agreeable to start anticoagulation. However, his speech is dysarthric, which is new and started a few days ago. Recommend to rule out a stroke first before starting anticoagulation. Recommend brain MRI. If negative for stroke, then can start anticoagulation. Recommendations and plan discussed with Hospitalist. (3) CAD (coronary artery disease): Code(s): I25.10 - Atherosclerotic heart disease of [place] coronary artery without angina pectoris Status: Acute Assessment and Plan: * Stable. Continue home Plavix, statin. (4) Left bundle-branch block, unspecified: Code(s): I44.7 - Left bundle-branch block, unspecified Status: Acute Assessment and Plan: Chronic (5) HTN (hypertension): Code(s): I10 - Essential (primary) hypertension Status: Acute Assessment and Plan: As above. (6) HLD (hyperlipidemia): Code(s): E78.5 - Hyperlipidemia, unspecified Status: Acute Assessment and Plan: Continue statin. Plan Recommendations and plan discussed with Hospitalist. History of Present Illness History of Present Illness Consult date/time: 08/18/24 13:49 Requesting physician: Mary Ellen Almonte PA-C Consult reason: atrial fibrillation and congestive heart failure Reason For Visit: new onset atrial fib with RVR, chf exacerbation, a Narrative: We are consulted for CHF, AFIB. Ross is an 84 year old patient of mine with coronary artery disease (stents to RCA and LCX in 2001, stent to LAD in 2007, stent to OM in 2019; has known [employer]PER[employer] fo the RCA) and chronic heart failure with reduced LVEF. Ross presents to [place] ER for shortness of breath over the past few weeks, worse with exertion. + Lower extremity edema. Workup shows WBC of 12.7, troponin of 0.050, NT pro BNP of 20,500. CXR with small bilateral pleural effusions, pulmonary edema. V/Q scan done for elevated D-dimer which shows intermediate probability for pulmonary embolism. EKG show atrial flutter with RVR, chronic LBBB. He was given Metoprolol 5mg IV with improvement in heart rates. Given IV Lasix. Patient and family report that he has had difficulty talking for the past three days as well. His legs feel more weak than usual. Review of Systems Review of Systems: All systems reviewed & are unremarkable except as noted in HPI and below (HPI) [facility] Past Medical History Medical History (Updated 08/18/24 @ 15:29 by Mary Ellen Almonte PA-C) Anemia Arthritis CAD (coronary artery disease) COVID-19 GERD (gastroesophageal reflux disease) HLD (hyperlipidemia) HTN (hypertension) Myocardial infarct Shortness of breath Surgical History Surgical History H/O vasectomy History of appendectomy History of left-sided carotid endarterectomy 12/08 Hx of heart artery stent S/P angioplasties S/P cholecystectomy Family History Family History Mother Diabetes mellitus Family history of malignant neoplasm Social History Social History Smoking packs per day: 2 Smoking cigarettes per day: 40.0 Years smoked: 30 Smoking pack-years: 60.00 Smoking status: Former smoker Tobacco type: cigarettes Second hand tobacco smoke exposure: No Alcohol intake: former Substance use: never Substance use type: does not use Do You Feel Safe in your Home?: Yes Lack of Transportation: YES Lack of Food: Never True Current Housing: I Have Housing Concerned About Future Housing: No Difficulty Paying Gas/Electric Bills: No Difficulty Paying for Meds: No Currently Unemployed: No Education: High School Diploma/GED Difficulty w/ Childcare or Family Care: No Living arrangements: with family Occupation/Education: retired Gender identity (if verbalized by the patient): Male Spiritual care concerns: No Agree to blood products: Yes Meds Home Medications and Allergies Home Medications Medication Instructions Recorded Confirmed Type hydrocodone 5 mg-acetaminophen 325 1 tablet PO Q6H PRN pain #30 tabs 07/11/24 08/18/24 Rx mg tablet rosuvastatin 40 mg tablet 40 mg PO DAILY #90 tabs 07/22/24 08/18/24 Rx carvedilol 3.125 mg tablet 3.125 mg PO DAILY 08/18/24 08/18/24 History clopidogrel 75 mg tablet 75 mg PO DAILY 08/18/24 08/18/24 History fluorouracil 5 % topical cream 1 applic topical DAILY 08/18/24 08/18/24 History furosemide 40 mg tablet 60 mg PO DAILY 08/18/24 08/18/24 History ipratropium bromide 42 mcg (0.06 2 spray intranasal TID 08/18/24 08/18/24 History %) nasal spray pantoprazole 40 mg tablet,delayed 40 mg PO DAILY 08/18/24 08/18/24 History release spironolactone 25 mg tablet 25 mg PO DAILY 08/18/24 08/18/24 History trazodone 150 mg tablet 150 mg PO DAILY 08/18/24 08/18/24 History Allergies Allergy/AdvReac Type Severity Reaction Status Date / Time Iodine and Iodide Containing Allergy Severe CARDIAC Verified 07/07/24 08:20 Produc ARREST iodixanol Allergy Severe CARDIAC Verified 07/07/24 08:20 ARREST Vital Signs Vital Signs - 24 hr 08/18/24 08:46 08/18/24 08:52 08/18/24 08:46 Temperature 36.4 C Pulse Rate 122 H Respiratory Rate 27 H Blood Pressure 126/98 H Pulse Oximetry 87 L 97 97 Oxygen Delivery Room Air Nasal Cannula Oxygen Flow Rate 2 08/18/24 08:46 08/18/24 08:46 08/18/24 09:16 Temperature Pulse Rate 114 H 111 H Respiratory Rate 23 H Blood Pressure 118/75 Pulse Oximetry 97 Oxygen Delivery Nasal Cannula Oxygen Flow Rate 2 08/18/24 09:31 08/18/24 09:46 08/18/24 10:16 Temperature 36.7 C 36.6 C Pulse Rate 115 H 111 H 115 H Respiratory Rate 9 L 36 H 20 Blood Pressure 114/88 116/83 107/95 H Pulse Oximetry 100 100 96 Oxygen Delivery Oxygen Flow Rate 08/18/24 10:46 08/18/24 12:01 08/18/24 12:16 Temperature 36.6 C Pulse Rate 114 H 98 100 Respiratory Rate 20 20 Blood Pressure 110/80 101/58 L Pulse Oximetry 96 94 Oxygen Delivery Oxygen Flow Rate 08/18/24 13:20 Temperature 36.6 C Pulse Rate 110 H Respiratory Rate 20 Blood Pressure 110/70 Pulse Oximetry 97 Oxygen Delivery Oxygen Flow Rate Exam Const: General: no acute distress HENMT: Mouth: Yes moist mucous membranes Other: Wearing dentures Eyes: General: appearance normal, both eyes and all related structures Sclera: sclerae normal Resp: Effort & Inspection: normal respiratory effort Auscultation: diminished lung sounds Cardio: Rhythm: abnormal rhythm irregularly irregular Heart sounds: no murmurs Skin: General skin exam: normal color Neuro: Speech: normal speech Other: His speech appears dysarthric Psych: Mental Status: mental status grossly normal Affect: normal affect Results Labs and Meds 08/18/24 09:12 08/18/24 09:12 Lab results: Cardiac Enzymes 08/18/24 Range/Units 09:12 AST 210 H (17-59) U/L Troponin I 0.050 H* (0.000-0.034) ng/mL Coagulation 08/18/24 Range/Units 09:12 PT 17.2 H (11.1-14.7) Seconds APTT 28.7 (22.3-36.8) Seconds CBC 08/18/24 Range/Units 09:12 WBC 12.7 H (4.5-10.0) K/mm3 RBC 4.60 (4.6-6.20) M/mm3 Hgb 14.6 (14.0-18.0) g/dL Hct 45.3 (42.0-52.0) % Plt Count 196 (150-375) k/mm3 Lymph # (Auto) 1.61 (0.9-3.2) K/mm3 [place] # (Auto) 1.3 H (0.1-0.6) K/mm3 Eos # (Auto) 0.0 (0-0.3) K/mm3 Baso # (Auto) 0.1 (0.0-0.1) K/mm3 Comprehensive Metabolic Panel 08/18/24 Range/Units 09:12 Sodium 134 L (137-145) mmol/L Potassium 4.6 (3.4-5.0) mmol/L Chloride 98 (98-107) mmol/L Carbon Dioxide 22 (22-30) mmol/L BUN 30 H (9-20) mg/dL Creatinine 1.00 (0.7-1.3) mg/dL Glucose 146 H (65-110) mg/dL Calcium 9.3 (8.4-10.2) mg/dL AST 210 H (17-59) U/L ALT 190 H (6-50) U/L Alkaline Phosphatase 95 (38-126) U/L Total Protein 7.0 (6.3-8.2) g/dL Albumin 4.5 (3.5-5.1) g/dL Patient Weight 08/18/24 23:59 Weight 75 kg
[2024-08-18] MEDS: PERFLUTREN LIPID MICROSPHERES 1.5 ML VIAL DILUTED TO 10 ML TOTAL VOLUME IV PUSH (16:05)
--- NOTE | 2024-08-18 16:31 | IVDEFINITY ---
Prior to administration of IV Definity the patient was educated on the risks and benefits of the imaging enhancing agent including potential adverse side effects. The patient verbalized understanding. Allergies were verified. No exclusion criteria were identified and at least one of the following inclusion criteria were met: 1) physician request, 2) patient technically difficult to image (per the [place] Society of Echocardiography guidelines of two or more segments not discernable within the apical view), or 3) questionable left ventricular function. ?
[2024-08-18] MEDS: IPRATROPIUM NASAL SPRAY 0.06% 15 ML BOTTLE 2 SPRAY NASAL (17:42)
--- NOTE | 2024-08-18 19:45 | PM.IMHP ---
H&P: HPI History of Present Illness Date/Time: 08/18/24 19:45 Chief Complaint: Worsening SOB Narrative: Patient presented to the ER with reports of worsening SOB within the last 3-4 days. Patient has a Hx of with last ECHO showing severely global reduced EF 15-20% in 2013. Pt denies any legs swelling, abdominal or scrotal edema. Pt also noted with new onset A-Fib RVR and is not on anticoagulation. There is also concern for new onset dysarthria and MRA brain has been ordered to ruleout acute CVA prior to anticoagulation and procedure has been ordered. Review of Systems Review of Systems: All systems reviewed & are unremarkable except as noted in HPI and below PMFSH Past Medical History Medical History Anemia Arthritis CAD (coronary artery disease) COVID-19 GERD (gastroesophageal reflux disease) HLD (hyperlipidemia) HTN (hypertension) Myocardial infarct Shortness of breath Surgical History Surgical History H/O vasectomy History of appendectomy History of left-sided carotid endarterectomy 12/08 Hx of heart artery stent S/P angioplasties S/P cholecystectomy Family History Family History Mother Diabetes mellitus Family history of malignant neoplasm Social History Social History Smoking packs per day: 2 Smoking cigarettes per day: 40.0 Years smoked: 30 Smoking pack-years: 60.00 Smoking status: Former smoker Tobacco type: cigarettes Second hand tobacco smoke exposure: No Alcohol intake: former Substance use: never Substance use type: does not use Do You Feel Safe in your Home?: Yes Lack of Transportation: YES Lack of Food: Never True Current Housing: I Have Housing Concerned About Future Housing: No Difficulty Paying Gas/Electric Bills: No Difficulty Paying for Meds: No Currently Unemployed: No Education: High School Diploma/GED Difficulty w/ Childcare or Family Care: No Living arrangements: with family Occupation/Education: retired Gender identity (if verbalized by the patient): Male Spiritual care concerns: No Agree to blood products: Yes Meds Home Medications and Allergies Home Medications Medication Instructions Recorded Confirmed Type hydrocodone 5 mg-acetaminophen 325 1 tablet PO Q6H PRN pain #30 tabs 07/11/24 08/18/24 Rx mg tablet rosuvastatin 40 mg tablet 40 mg PO DAILY #90 tabs 07/22/24 08/18/24 Rx carvedilol 3.125 mg tablet 3.125 mg PO DAILY 08/18/24 08/18/24 History clopidogrel 75 mg tablet 75 mg PO DAILY 08/18/24 08/18/24 History fluorouracil 5 % topical cream 1 applic topical DAILY 08/18/24 08/18/24 History furosemide 40 mg tablet 60 mg PO DAILY 08/18/24 08/18/24 History ipratropium bromide 42 mcg (0.06 2 spray intranasal TID 08/18/24 08/18/24 History %) nasal spray pantoprazole 40 mg tablet,delayed 40 mg PO DAILY 08/18/24 08/18/24 History release spironolactone 25 mg tablet 25 mg PO DAILY 08/18/24 08/18/24 History trazodone 150 mg tablet 150 mg PO DAILY 08/18/24 08/18/24 History Allergies Allergy/AdvReac Type Severity Reaction Status Date / Time Iodine and Iodide Containing Allergy Severe CARDIAC Verified 07/07/24 08:20 Produc ARREST iodixanol Allergy Severe CARDIAC Verified 07/07/24 08:20 ARREST Vital Signs Vital Signs - 24 hr 08/18/24 08:46 08/18/24 08:52 08/18/24 08:46 Temperature 97.6 F Pulse Rate 122 H Respiratory Rate 27 H Blood Pressure 126/98 H Pulse Oximetry 87 L 97 97 Oxygen Delivery Room Air Nasal Cannula Oxygen Flow Rate 2 08/18/24 08:46 08/18/24 08:46 08/18/24 09:16 Temperature Pulse Rate 114 H 111 H Respiratory Rate 23 H Blood Pressure 118/75 Pulse Oximetry 97 Oxygen Delivery Nasal Cannula Oxygen Flow Rate 2 08/18/24 09:31 08/18/24 09:46 08/18/24 10:16 Temperature 98.0 F 97.8 F Pulse Rate 115 H 111 H 115 H Respiratory Rate 9 L 36 H 20 Blood Pressure 114/88 116/83 107/95 H Pulse Oximetry 100 100 96 Oxygen Delivery Oxygen Flow Rate 08/18/24 10:46 08/18/24 12:01 08/18/24 12:16 Temperature 97.8 F Pulse Rate 114 H 98 100 Respiratory Rate 20 20 Blood Pressure 110/80 101/58 L Pulse Oximetry 96 94 Oxygen Delivery Oxygen Flow Rate 08/18/24 13:20 08/18/24 14:01 08/18/24 13:52 Temperature 97.8 F 98.0 F Pulse Rate 110 H 100 94 Respiratory Rate 20 20 Blood Pressure 110/70 110/75 Pulse Oximetry 97 97 Oxygen Delivery Oxygen Flow Rate 08/18/24 16:14 08/18/24 18:00 Temperature 97.3 F L Pulse Rate 94 95 Respiratory Rate 22 H Blood Pressure 112/83 Pulse Oximetry 97 Oxygen Delivery Oxygen Flow Rate Exam Narrative: HEENT: Atraumatic, KASEY, non-icteric, moist mucosa. NECK: Supple. Lungs: Diminished bilaterally. HEART: Irregularly irregular, no murmurs. ABDOMEN: Soft, non-tender, non-distended, +ve bowel sounds X4 Quadrants. Extremities: No edema or redness. Skin: Intact with no lesions. Neuro: Well oriented. No focal neuro deficits. Psych: Pleasant and co-operative. H&P: Results Labs Labs: Short CBC 08/18/24 Range/Units 09:12 WBC 12.7 H (4.5-10.0) K/mm3 Hgb 14.6 (14.0-18.0) g/dL Hct 45.3 (42.0-52.0) % Plt Count 196 (150-375) k/mm3 BMP 08/18/24 09:12 Sodium 134 L Potassium 4.6 Chloride 98 Carbon Dioxide 22 BUN 30 H Creatinine 1.00 Glucose 146 H Calcium 9.3 Cardiac Enzymes 08/18/24 Range/Units 09:12 Troponin I 0.050 H* (0.000-0.034) ng/mL Liver Function 08/18/24 Range/Units 09:12 Total Bilirubin 3.7 H (0.2-1.3) mg/dL AST 210 H (17-59) U/L ALT 190 H (6-50) U/L Alkaline Phosphatase 95 (38-126) U/L Albumin 4.5 (3.5-5.1) g/dL Assessment and Plan Assessment and plan (1) Atrial fibrillation with RVR: Code(s): I48.91 - Unspecified atrial fibrillation Status: Acute Assessment and Plan: - EKG on admission: A-Fib RVR with LBBB. - Mainains A-Fib RVR, rate 110-120's. - [facility] for possible acute CVA. - Metoprolol ER for rate control. - Appreciate gr[employer] assistance. - Continue tele monitoring. (2) Acute hypoxic respiratory failure: Code(s): J96.01 - Acute respiratory failure with hypoxia Status: Acute Assessment and Plan: - Likely related to A-Fib RVR +/vs Acute on Chronic CHF. - Continue A-Fib rate control with metoprolol. - Started on Lasix for diuresis. - Striict I &O's with daily weights. - Currently good O2 sats on RA > 90 %. - O2 PRN to maintain sats > 90 %. 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 - Started on 80 mg IV Lasix. - Daily weights with strict I & O's. - Last ECHO 10/2012 showed reduced EF with global dyskinesia at 15-20 %. - Refused ICD previously per gr[employer]. - Continue Toprolol. (4) Type 2 diabetes mellitus without complications: Onset Date: 05/2024 Code(s): E11.9 - Type 2 diabetes mellitus without complications Status: Acute Assessment and Plan: - Monitor for now. - We'll consider SSI if BG levels elevate. - A1C ordered. (5) Dysarthria following cerebral infarction: Code(s): I69.322 - Dysarthria following cerebral infarction Status: Acute Assessment and Plan: - Unclear etiology or whether acute or chronic. - MRA brain ordered. _ Follow MRA results. - LDL and lipid panel ordered. - TT ECHO ordered. (6) HLD (hyperlipidemia): Code(s): E78.5 - Hyperlipidemia, unspecified Status: Acute Assessment and Plan: - Statin restarted. (7) CAD (coronary artery disease): Code(s): I25.10 - Atherosclerotic heart disease of [place] coronary artery without angina pectoris Status: Acute Assessment and Plan: - Stable. - Continue statin and metoprolol. - We'll restart plavix if MRA brain negative for acute CVA. (8) Ischemic cardiomyopathy: Code(s): I25.5 - Ischemic cardiomyopathy Status: Acute Assessment and Plan: - Mgt as # 3. - Refused ICD previously per gr[employer]. - Continue tele monitoring. (9) HTN (hypertension): Code(s): I10 - Essential (primary) hypertension Status: Acute Assessment and Plan: - Monitor BP closely with diuresis and Toprolol use. (10) Pure hypercholesterolemia, unspecified: Code(s): E78.00 - Pure hypercholesterolemia, unspecified Status: Acute Assessment and Plan: - Statin restarted. - Check LDL and A1C. (11) GERD (gastroesophageal reflux disease): Code(s): K21.9 - Gastro-esophageal reflux disease without esophagitis Status: Acute Assessment and Plan: - Pantoprazole resumed. (12) Arthritis: Code(s): M19.90 - Unspecified osteoarthritis, unspecified site Status: Acute Assessment and Plan: - Pain meds PRN. Quality VTE Prophylaxis VTE prophylaxis: mechanical ordered Stroke Date of last known normal: 08/17/24 Time of last known normal: 20:25 (Unknown) Pharmacological Therapy Contraindications to IV thrombolytic therapy: medical contraindication (Last well time unknown) Reason anticoag or antiplatelet not ordered by end of day 2: medical contraindication Hospitalist MIPS Advance Care Plan I have confirmed that the patient's Advanced Care Plan is present, code status is documented, or surrogate decision maker is listed in patient medical record.: Yes Medication Reconciliation I have utilized all available resources to obtain, update and review the patients current medications (includes all prescriptions, OTC, herbals, cannabis, and nutritional supplements).: Yes
[2024-08-18 21:08] LABS: LDL Cholesterol Direct 64 mg/dL
[2024-08-18] MEDS: METOPROLOL SUCCINATE EXT REL 25 MG TABCR PO (21:36)
[2024-08-19] VITALS (23 sets, daily range): BP systolic 90–155; BP diastolic 58–113; PULSE 72–106; RESP 16–22; TEMP 36.1–36.8; O2SAT 92–99
[2024-08-19] MEDS: traZODone HCL 25 MG TABLET PO ×2 (00:03→21:42)
[2024-08-19] MEDS: traZODone HCL 50 MG TABLET 200 MG PO ×2 (00:03→21:42)
[2024-08-19 04:55] LABS: Hematocrit 42.3 % (42.0-52.0); Hemoglobin 13.8 g/dL (14.0-18.0); Mean Corpuscular HGB Conc 32.6 g/dl (32-36); Mean Corpuscular Hemoglobin 31.3 pg (26-34); Mean Corpuscular Volume 95.9 fl (80-100); Platelet Count Result 138 k/mm3 (150-375); Red Blood Count 4.41 M/mm3 (4.6-6.20); Red Cell Distribution Width 15.7 % (11.5-14.5)
[2024-08-19 05:04] LABS: Hemoglobin A1C 6.4 % (<5.7)
[2024-08-19 05:23] LABS: Alkaline Phosphatase 132 U/L (38-126); Anion Gap 14 mmol/L (4-12); Bilirubin,Total 4.4 mg/dL (0.2-1.3); Blood Urea Nitrogen 41 mg/dL (9-20); Carbon Dioxide 25 mmol/L (22-30); Chloride 95 mmol/L (98-107); Estimated CRCL calculation 43 ml/min; Estimated Glomerular Filt Rate 58; Glucose 120 mg/dL (65-110); Potassium 4.7 mmol/L (3.4-5.0); Sodium 134 mmol/L (137-145)
[2024-08-19 05:39] LABS: Procalcitonin 0.3 ng/mL
[2024-08-19 05:41] LABS: Alanine Aminotransferase 907 U/L (6-50); Aspartate Amino Transferase 1180 U/L (17-59)
--- NOTE | 2024-08-19 07:31 | P.PNCA_ITS ---
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 Repeat echocardiogram pending * At home he takes Lasix 80 mg daily. He was given Lasix 80 mg IV b.i.d.. Creatinines has increased today. Recommend Lasix 40 mg IV b.i.d. for now. * Has been unable to afford Entresto. * His blood pressures have been soft therefore recommend to hold both lisinopril 5 mg daily Aldactone 25 mg daily that he takes at. * Continue metoprolol * Has refused ICD for primary prevention in the past. (2) Atrial fibrillation with RVR: Code(s): I48.91 - Unspecified atrial fibrillation Status: Acute Assessment and Plan: * New diagnosis for the patient. * Check TSH level. * Heart rates not well controlled. Increase metoprolol from 25 mg b.i.d. to 25 mg q.6 hours with holding parameters. * [id number] of 7. Recommend anticoagulation for stroke prophylaxis. Discussed with patient, including risks vs benefits. Patient is agreeable to start anticoagulation. However, his speech is dysarthric, which is new and started a few days ago. Recommend to rule out a stroke first before starting anticoagulation. Recommend brain MRI. If negative for stroke, then can start anticoagulation. Recommendations and plan discussed with Hospitalist. 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 Continue home Plavix, statin. (4) Left bundle-branch block, unspecified: Code(s): I44.7 - Left bundle-branch block, unspecified Status: Acute Assessment and Plan: Chronic (5) HTN (hypertension): Code(s): I10 - Essential (primary) hypertension Status: Acute Assessment and Plan: Blood pressure is soft. Hold both spironolactone 25 mg daily and lisinopril 5 mg daily (6) HLD (hyperlipidemia): Code(s): E78.5 - Hyperlipidemia, unspecified Status: Acute Assessment and Plan: Place rosuvastatin on hold because of elevated liver enzymes today Plan Recommendations and plan discussed with Hospitalist. Subjective Date/time seen: 08/19/24 07:31 Interval history: 08/19-remains in AFib today with heart rates 100-115 beats per minute. Shortness of breath improved. On 2 L nasal cannula. No chest pain Review of Systems Review of Systems: All systems reviewed & are unremarkable except as noted in HPI and below (HPI) Exam Const: General: no acute distress HENMT: Mouth: Yes moist mucous membranes Other: Wearing dentures Eyes: General: appearance normal, both eyes and all related structures Sclera: sclerae normal Resp: Effort & Inspection: normal respiratory effort Auscultation: diminished lung sounds Cardio: Rhythm: abnormal rhythm irregularly irregular Heart sounds: no murmurs Skin: General skin exam: normal color Neuro: Speech: normal speech Other: His speech appears dysarthric Psych: Mental Status: mental status grossly normal Affect: normal affect Objective Data Vital Signs Vital Signs: Vital Signs - 24 hr 08/18/24 08:46 08/18/24 08:52 08/18/24 08:46 Temperature 36.4 C Pulse Rate 122 H Respiratory Rate 27 H Blood Pressure 126/98 H Pulse Oximetry 87 L 97 97 Oxygen Delivery Room Air Nasal Cannula Oxygen Flow Rate 2 08/18/24 08:46 08/18/24 08:46 08/18/24 09:16 Temperature Pulse Rate 114 H 111 H Respiratory Rate 23 H Blood Pressure 118/75 Pulse Oximetry 97 Oxygen Delivery Nasal Cannula Oxygen Flow Rate 2 08/18/24 09:31 08/18/24 09:46 08/18/24 10:16 Temperature 36.7 C 36.6 C Pulse Rate 115 H 111 H 115 H Respiratory Rate 9 L 36 H 20 Blood Pressure 114/88 116/83 107/95 H Pulse Oximetry 100 100 96 Oxygen Delivery Oxygen Flow Rate 08/18/24 10:46 08/18/24 12:01 08/18/24 12:16 Temperature 36.6 C Pulse Rate 114 H 98 100 Respiratory Rate 20 20 Blood Pressure 110/80 101/58 L Pulse Oximetry 96 94 Oxygen Delivery Oxygen Flow Rate 08/18/24 13:20 08/18/24 14:01 08/18/24 13:52 Temperature 36.6 C 36.7 C Pulse Rate 110 H 100 94 Respiratory Rate 20 20 Blood Pressure 110/70 110/75 Pulse Oximetry 97 97 Oxygen Delivery Oxygen Flow Rate 08/18/24 16:14 08/18/24 18:00 08/18/24 19:48 Temperature 36.3 C L 36.4 C Pulse Rate 94 95 101 H Respiratory Rate 22 H 22 H Blood Pressure 112/83 121/60 Pulse Oximetry 97 96 Oxygen Delivery Oxygen Flow Rate 08/18/24 21:36 08/18/24 23:15 08/18/24 20:00 Temperature 36.8 C Pulse Rate 112 H 107 H 104 H Respiratory Rate 22 H Blood Pressure 100/61 Pulse Oximetry 92 Oxygen Delivery Oxygen Flow Rate 08/18/24 20:00 08/18/24 22:00 08/19/24 00:00 Temperature Pulse Rate 104 H 105 H 98 Respiratory Rate 22 H Blood Pressure Pulse Oximetry 92 Oxygen Delivery Nasal Cannula Oxygen Flow Rate 2 08/19/24 00:00 08/19/24 02:00 08/19/24 04:04 Temperature 36.8 C Pulse Rate 98 102 H 95 Respiratory Rate 22 H 22 H Blood Pressure 110/67 Pulse Oximetry 92 96 Oxygen Delivery Nasal Cannula Oxygen Flow Rate 2 08/19/24 04:00 08/19/24 04:00 08/19/24 06:00 Temperature Pulse Rate 100 100 100 Respiratory Rate 22 H Blood Pressure Pulse Oximetry 96 Oxygen Delivery Nasal Cannula Oxygen Flow Rate 2 Intake/Output Intake/Output: Intake & Output 08/16/24 08/17/24 08/18/24 08/19/24 23:59 23:59 23:59 23:59 Intake Total 270 Output Total 540 300 Balance -270 -300 Meds/Results Medications: Active Medications Generic Name Dose Route Start Last Admin Trade Name Freq PRN Reason Stop Dose Admin Hydrocodone Bitart/Acetaminophen 1 tab 08/18/24 16:29 Hydrocodone/Acetaminophen (*Crx) 5-325 Mg Tablet PO Q6H PRN pain Clopidogrel Bisulfate 75 mg 08/19/24 09:00 Clopidogrel Bisulfate 75 Mg Tablet PO DAILY LAYA Furosemide 80 mg 08/18/24 17:00 08/18/24 17:41 Furosemide Inj 100 Mg/10 Ml Vial IV PUSH 80 mg BID LAYA Administration Ipratropium Points 2 spray 08/18/24 17:00 08/18/24 17:42 Ipratropium Nasal [place] 0.06% 15 Ml Bottle NASAL 2 spray TID LAYA Administration Metoprolol Succinate 25 mg 08/18/24 21:00 08/18/24 21:36 Metoprolol Succinate Ext Rel 25 Mg Tabcr PO 25 mg Q12HR LAYA Administration Pantoprazole Sodium 40 mg 08/19/24 09:00 Pantoprazole 40 Mg Tablet PO DAILY LAYA Rosuvastatin Calcium 40 mg 08/19/24 09:00 Rosuvastatin 20 Mg Tablet PO DAILY LAYA Spironolactone 25 mg 08/19/24 09:00 Spironolactone 25 Mg Tablet PO DAILY LAYA Trazodone HCl 25 mg 08/18/24 23:15 08/19/24 00:03 Trazodone Hcl 25 Mg Tablet PO 25 mg HS LAYA Administration Trazodone HCl 200 mg 08/18/24 23:15 08/19/24 00:03 Trazodone Hcl 50 Mg Tablet PO 200 mg HS LAYA Administration Radiology Results: ITS Impressions Chest X-Ray 08/18/24 10:31 IMPRESSION: 1. Small bilateral pleural effusions with opacities at the bilateral lower lung zones and favor mild pulmonary edema over pneumonia. 2. Borderline heart size and enlargement of the central pulmonary arteries consistent with pulmonary arterial hypertension. Pulmonary Perfusion Imaging 08/18/24 13:36 IMPRESSION: 1. Intermediate probability for pulmonary embolism. Labs Labs: Laboratory Results - last 24 hr 08/18/24 08/18/24 08/18/24 09:12 09:15 20:43 WBC 12.7 H RBC 4.60 Hgb 14.6 Hct 45.3 MCV 98.5 MCH 31.7 MCHC 32.2 RDW 15.7 H Plt Count 196 MPV 10.6 H Immature Gran % (Auto) 0.9 H Neut % (Auto) 75.9 H Lymph % (Auto) 12.7 L [place] % (Auto) 9.8 H Eos % (Auto) 0.2 Baso % (Auto) 0.5 Lymph # (Auto) 1.61 [place] # (Auto) 1.3 H Eos # (Auto) 0.0 Baso # (Auto) 0.1 Abs Immat Gran (auto) 0.11 H Absolute Neuts (auto) 9.7 H Absolute Nucleated RBC 0.050 H Nucleated RBC % 0.4 H Platelet Estimate Adequate % Immature Plt Fraction 5.3 Miya Cells 1+ Schistocytes None seen PT 17.2 H INR 1.4 APTT 28.7 D-Dimer 6.44 H Sodium 134 L Potassium 4.6 Chloride 98 Carbon Dioxide 22 Anion Gap 14 H BUN 30 H Creatinine 1.00 Estim Creat Clear Calc 52 Estimated GFR > 60 Glucose 146 H Hemoglobin A1c Calcium 9.3 Total Bilirubin 3.7 H AST 210 H ALT 190 H Alkaline Phosphatase 95 Troponin I 0.050 H* NT-Pro-B Natriuret Pep 54840 H Total Protein 7.0 Albumin 4.5 LDL Cholesterol Direct 64 Lipase 72 Procalcitonin TSH 2.580 08/19/24 04:23 WBC 12.0 H RBC 4.41 L Hgb 13.8 L Hct 42.3 MCV 95.9 MCH 31.3 MCHC 32.6 RDW 15.7 H Plt Count 138 L MPV 11.0 H Immature Gran % (Auto) Neut % (Auto) Lymph % (Auto) [place] % (Auto) Eos % (Auto) Baso % (Auto) Lymph # (Auto) [place] # (Auto) Eos # (Auto) Baso # (Auto) Abs Immat Gran (auto) Absolute Neuts (auto) Absolute Nucleated RBC Nucleated RBC % Platelet Estimate % Immature Plt Fraction Miya Cells Schistocytes PT INR APTT D-Dimer Sodium 134 L Potassium 4.7 Chloride 95 L Carbon Dioxide 25 Anion Gap 14 H BUN 41 H D Creatinine 1.20 Estim Creat Clear Calc 43 Estimated GFR 58 L Glucose 120 H Hemoglobin A1c 6.4 H Calcium 9.0 Total Bilirubin 4.4 H AST 1180 H ALT 907 H Alkaline Phosphatase 132 H Troponin I NT-Pro-B Natriuret Pep Total Protein 7.0 Albumin 4.0 LDL Cholesterol Direct Lipase Procalcitonin 0.3 TSH
--- NOTE | 2024-08-19 07:53 | PM.IMPN ---
Progress Note: A&P Assessment and Plan (1) Atrial fibrillation with RVR: Code(s): I48.91 - Unspecified atrial fibrillation Status: Acute Assessment and Plan: - EKG on admission: A-Fib RVR with LBBB. - Patient maintains A-Fib on telemetry, rate low 100's. - Anticoagulation held currently with concern for possible acute CVA. - Metoprolol ER for rate control. - Appreciate word processing supervisor assistance. - Anticoagulation started ( Heparin drip) with negative MRA brain for acute CVA. - Continue tele monitoring. (2) Acute hypoxic respiratory failure: Code(s): J96.01 - Acute respiratory failure with hypoxia Status: Acute Assessment and Plan: - Likely related to A-Fib RVR +/vs Acute on Chronic CHF. - Continue A-Fib rate control with metoprolol. - Continue diuresis with IV lasix. - Strict I &O's with daily weights. - Currently good O2 sats > 90 % on 2L/NC. - Continue supplemental O2 to maintain sats > 90 %. 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 - Continue diuresis with 80 mg IV Lasix. - Daily weights with strict I & O's. - Last ECHO 10/2012 showed reduced EF with global dyskinesia at 15-20 %. - Repeat ECHO pending. - Refused ICD previously per word processing supervisor. - Continue Toprolol. (4) Elevated LFTs: Code(s): R79.89 - Other specified abnormal findings of blood chemistry Status: Acute Assessment and Plan: - Unclear etiology, possibly secondary to CHF exacerbation. - Acute respiratory virus panel ordered. - Consider US RUQ if no improvement. (5) Dysarthria following cerebral infarction: Code(s): I69.322 - Dysarthria following cerebral infarction Status: Acute Assessment and Plan: - Unclear etiology or whether acute or chronic. - MRA brain pending. _ Follow MRA results. - LDL 64. - TT ECHO pending. (6) Type 2 diabetes mellitus without complications: Onset Date: 05/2024 Code(s): E11.9 - Type 2 diabetes mellitus without complications Status: Acute Assessment and Plan: - Appears fairly well controlled. - Continue to hold hypoglycemics for now. - A1C 6.4 (7) HLD (hyperlipidemia): Code(s): E78.5 - Hyperlipidemia, unspecified Status: Acute Assessment and Plan: - Continue Statin. (8) CAD (coronary artery disease): Code(s): I25.10 - Atherosclerotic heart disease of [place] coronary artery without angina pectoris Status: Acute Assessment and Plan: - Stable. - Continue statin, plavix and metoprolol. (9) Ischemic cardiomyopathy: Code(s): I25.5 - Ischemic cardiomyopathy Status: Acute Assessment and Plan: - Mgt as # 3. - Refused ICD previously per word processing supervisor. - Continue tele monitoring. - Appreciate word processing supervisor assistance. - ECHO pending. (10) HTN (hypertension): Code(s): I10 - Essential (primary) hypertension Status: Acute Assessment and Plan: - Currently well controlled. - Monitor closely with diuresis and Toprolol use. (11) Pure hypercholesterolemia, unspecified: Code(s): E78.00 - Pure hypercholesterolemia, unspecified Status: Acute Assessment and Plan: - Statin restarted. - Check LDL 64. (12) GERD (gastroesophageal reflux disease): Code(s): K21.9 - Gastro-esophageal reflux disease without esophagitis Status: Acute Assessment and Plan: - Pantoprazole resumed. (13) Arthritis: Code(s): M19.90 - Unspecified osteoarthritis, unspecified site Status: Acute Assessment and Plan: - Pain meds PRN. Time Spent With Patient Time with patient: 25 - 35 minutes Subjective Date/time seen: 08/19/24 07:53 Patient having breakfast and states he feels good and his breathing is better this AM. Denies chest pain, SOB or other distress. Interval history: Patient admitted for worsening SOB secondary to acute on Chronic CHF and New-Onset A-Fib with RVR. Patient's VQ scan showing intermediate probability for PE, with MRA pending to rule out acute CVA due to some dysarthria noted on patient during his admission. Laundry Helper following and assisting with patient's stabilization. Review of Systems Review of Systems: All systems reviewed & are unremarkable except as noted in HPI and below Exam Narrative: HEENT: Atraumatic, [place], non-icteric, moist mucosa. NECK: Supple. Lungs: Faint crackles to bases. HEART: Irregularly irregular, no murmurs. ABDOMEN: Soft, non-tender, non-distended, +ve bowel sounds X4 Quadrants. Extremities: No edema or redness. Skin: Intact with no lesions. Neuro: Well oriented. No focal neuro deficits. Psych: Pleasant and co-operative. Objective Data Vital Signs Vital Signs: Vital Signs - 24 hr 08/18/24 08:46 08/18/24 08:52 08/18/24 08:46 Temperature 97.6 F Pulse Rate 122 H Respiratory Rate 27 H Blood Pressure 126/98 H Pulse Oximetry 87 L 97 97 Oxygen Delivery Room Air Nasal Cannula Oxygen Flow Rate 2 08/18/24 08:46 08/18/24 08:46 08/18/24 09:16 Temperature Pulse Rate 114 H 111 H Respiratory Rate 23 H Blood Pressure 118/75 Pulse Oximetry 97 Oxygen Delivery Nasal Cannula Oxygen Flow Rate 2 08/18/24 09:31 08/18/24 09:46 08/18/24 10:16 Temperature 98.0 F 97.8 F Pulse Rate 115 H 111 H 115 H Respiratory Rate 9 L 36 H 20 Blood Pressure 114/88 116/83 107/95 H Pulse Oximetry 100 100 96 Oxygen Delivery Oxygen Flow Rate 08/18/24 10:46 08/18/24 12:01 08/18/24 12:16 Temperature 97.8 F Pulse Rate 114 H 98 100 Respiratory Rate 20 20 Blood Pressure 110/80 101/58 L Pulse Oximetry 96 94 Oxygen Delivery Oxygen Flow Rate 08/18/24 13:20 08/18/24 14:01 08/18/24 13:52 Temperature 97.8 F 98.0 F Pulse Rate 110 H 100 94 Respiratory Rate 20 20 Blood Pressure 110/70 110/75 Pulse Oximetry 97 97 Oxygen Delivery Oxygen Flow Rate 08/18/24 16:14 08/18/24 18:00 08/18/24 19:48 Temperature 97.3 F L 97.6 F Pulse Rate 94 95 101 H Respiratory Rate 22 H 22 H Blood Pressure 112/83 121/60 Pulse Oximetry 97 96 Oxygen Delivery Oxygen Flow Rate 08/18/24 21:36 08/18/24 23:15 08/18/24 20:00 Temperature 98.2 F Pulse Rate 112 H 107 H 104 H Respiratory Rate 22 H Blood Pressure 100/61 Pulse Oximetry 92 Oxygen Delivery Oxygen Flow Rate 08/18/24 20:00 08/18/24 22:00 08/19/24 00:00 Temperature Pulse Rate 104 H 105 H 98 Respiratory Rate 22 H Blood Pressure Pulse Oximetry 92 Oxygen Delivery Nasal Cannula Oxygen Flow Rate 2 08/19/24 00:00 08/19/24 02:00 08/19/24 04:04 Temperature 98.3 F Pulse Rate 98 102 H 95 Respiratory Rate 22 H 22 H Blood Pressure 110/67 Pulse Oximetry 92 96 Oxygen Delivery Nasal Cannula Oxygen Flow Rate 2 08/19/24 04:00 08/19/24 04:00 08/19/24 06:00 Temperature Pulse Rate 100 100 100 Respiratory Rate 22 H Blood Pressure Pulse Oximetry 96 Oxygen Delivery Nasal Cannula Oxygen Flow Rate 2 08/19/24 07:30 Temperature 98.2 F Pulse Rate 106 H Respiratory Rate 16 Blood Pressure 107/71 Pulse Oximetry 95 Oxygen Delivery Oxygen Flow Rate Intake/Output Intake/Output: Intake & Output 08/16/24 08/17/24 08/18/24 08/19/24 23:59 23:59 23:59 23:59 Intake Total 270 Output Total 540 300 Balance -270 -300 Meds/Results Medications: Active Medications Generic Name Dose Route Start Last Admin Trade Name Freq PRN Reason Stop Dose Admin Hydrocodone Bitart/Acetaminophen 1 tab 08/18/24 16:29 Hydrocodone/Acetaminophen (*Crx) 5-325 Mg Tablet PO Q6H PRN pain Clopidogrel Bisulfate 75 mg 08/19/24 09:00 Clopidogrel Bisulfate 75 Mg Tablet PO DAILY LAYA Furosemide 40 mg 08/19/24 17:00 Furosemide Inj 40 Mg/4 Ml Vial IV PUSH BID LAYA Ipratropium [place] 2 spray 08/18/24 17:00 08/18/24 17:42 Ipratropium Nasal [place] 0.06% 15 Ml Bottle NASAL 2 spray TID LAYA Administration Metoprolol Tartrate 25 mg 08/19/24 07:45 Metoprolol Tartrate 25 Mg Tablet PO Q6H LAYA Pantoprazole Sodium 40 mg 08/19/24 09:00 Pantoprazole 40 Mg Tablet PO DAILY LAYA Trazodone HCl 25 mg 08/18/24 23:15 08/19/24 00:03 Trazodone Hcl 25 Mg Tablet PO 25 mg HS LAYA Administration Trazodone HCl 200 mg 08/18/24 23:15 08/19/24 00:03 Trazodone Hcl 50 Mg Tablet PO 200 mg HS LAYA Administration Radiology Results: ITS Impressions Chest X-Ray 08/18/24 10:31 IMPRESSION: 1. Small bilateral pleural effusions with opacities at the bilateral lower lung zones and favor mild pulmonary edema over pneumonia. 2. Borderline heart size and enlargement of the central pulmonary arteries consistent with pulmonary arterial hypertension. Pulmonary Perfusion Imaging 08/18/24 13:36 IMPRESSION: 1. Intermediate probability for pulmonary embolism. Labs Labs: Laboratory Results - last 24 hr 08/18/24 08/18/24 08/18/24 09:12 09:15 20:43 WBC 12.7 H RBC 4.60 Hgb 14.6 Hct 45.3 MCV 98.5 MCH 31.7 MCHC 32.2 RDW 15.7 H Plt Count 196 MPV 10.6 H Immature Gran % (Auto) 0.9 H Neut % (Auto) 75.9 H Lymph % (Auto) 12.7 L [place] % (Auto) 9.8 H Eos % (Auto) 0.2 Baso % (Auto) 0.5 Lymph # (Auto) 1.61 [place] # (Auto) 1.3 H Eos # (Auto) 0.0 Baso # (Auto) 0.1 Abs Immat Gran (auto) 0.11 H Absolute Neuts (auto) 9.7 H Absolute Nucleated RBC 0.050 H Nucleated RBC % 0.4 H Platelet Estimate Adequate % Immature Plt Fraction 5.3 Miya Cells 1+ Schistocytes None seen PT 17.2 H INR 1.4 APTT 28.7 D-Dimer 6.44 H Sodium 134 L Potassium 4.6 Chloride 98 Carbon Dioxide 22 Anion Gap 14 H BUN 30 H Creatinine 1.00 Estim Creat Clear Calc 52 Estimated GFR > 60 Glucose 146 H Hemoglobin A1c Calcium 9.3 Total Bilirubin 3.7 H AST 210 H ALT 190 H Alkaline Phosphatase 95 Troponin I 0.050 H* NT-Pro-B Natriuret Pep 21157 H Total Protein 7.0 Albumin 4.5 LDL Cholesterol Direct 64 Lipase 72 Procalcitonin TSH 2.580 08/19/24 04:23 WBC 12.0 H RBC 4.41 L Hgb 13.8 L Hct 42.3 MCV 95.9 MCH 31.3 MCHC 32.6 RDW 15.7 H Plt Count 138 L MPV 11.0 H Immature Gran % (Auto) Neut % (Auto) Lymph % (Auto) [place] % (Auto) Eos % (Auto) Baso % (Auto) Lymph # (Auto) [place] # (Auto) Eos # (Auto) Baso # (Auto) Abs Immat Gran (auto) Absolute Neuts (auto) Absolute Nucleated RBC Nucleated RBC % Platelet Estimate % Immature Plt Fraction Miya Cells Schistocytes PT INR APTT D-Dimer Sodium 134 L Potassium 4.7 Chloride 95 L Carbon Dioxide 25 Anion Gap 14 H BUN 41 H D Creatinine 1.20 Estim Creat Clear Calc 43 Estimated GFR 58 L Glucose 120 H Hemoglobin A1c 6.4 H Calcium 9.0 Total Bilirubin 4.4 H AST 1180 H ALT 907 H Alkaline Phosphatase 132 H Troponin I NT-Pro-B Natriuret Pep Total Protein 7.0 Albumin 4.0 LDL Cholesterol Direct Lipase Procalcitonin 0.3 TSH Quality VTE Prophylaxis VTE prophylaxis: mechanical ordered Hospitalist MIPS Advance Care Plan I have confirmed that the patient's Advanced Care Plan is present, code status is documented, or surrogate decision maker is listed in patient medical record.: Yes Medication Reconciliation I have utilized all available resources to obtain, update and review the patients current medications (includes all prescriptions, OTC, herbals, cannabis, and nutritional supplements).: Yes
[2024-08-19] MEDS: PANTOPRAZOLE 40 MG TABLET PO (09:44)
[2024-08-19] MEDS: METOPROLOL TARTRATE 25 MG TABLET PO ×4 (09:44→23:44)
[2024-08-19] MEDS: CLOPIDOGREL BISULFATE 75 MG TABLET PO (09:45)
[2024-08-19] MEDS: IPRATROPIUM NASAL SPRAY 0.06% 15 ML BOTTLE 2 SPRAY NASAL ×3 (09:45→16:08)
--- NOTE | 2024-08-19 11:26 | PC.NURSE ---
Updated spouse, Madelin, on patient condition and plan of care.
--- NOTE | 2024-08-19 12:00 | PC.NURSE ---
Patient off floor to MRI.
[2024-08-19] MEDS: FUROSEMIDE INJ 40 MG/4 ML VIAL IV PUSH ×2 (12:40→16:07)
[2024-08-19] MEDS: HEPARIN SOD/D5W 100 UNITS/ML 25,000 UNITS/250 ML BAG 13 UNITS IV CONT (15:40)
[2024-08-19 18:06] LABS: Basophils Percent Auto 0.2 % (0.2-1.2); Hematocrit 41.3 % (42.0-52.0); Hemoglobin 13.1 g/dL (14.0-18.0); Immature Granulocyte Absolute 0.09 K/mm3 (0.00-0.031); Immature Granulocyte Percent A 0.6 % (0-0.5); Lymphocytes Absolute Auto 0.99 K/mm3 (0.9-3.2); Mean Corpuscular HGB Conc 31.7 g/dl (32-36); Mean Corpuscular Hemoglobin 30.7 pg (26-34); Mean Corpuscular Volume 96.7 fl (80-100); Mean Platelet Volume 10.7 fl (7.4-10.4); Monocytes Absolute Auto 1.2 K/mm3 (0.1-0.6); Monocytes Percent Auto 8.3 % (2.6-8.5); Neutrophils Absolute Auto 11.9 K/mm3 (1.3-6.7); Neutrophils Percent Auto 83.9 % (45.5-73.1); Nucleated Red Blood Cells Perc 1.6 % (0.0-0.2); Platelet Count Result 152 k/mm3 (150-375); Red Blood Count 4.27 M/mm3 (4.6-6.20); Red Cell Distribution Width 15.7 % (11.5-14.5); White Blood Count 14.2 K/mm3 (4.5-10.0)
[2024-08-19 18:17] LABS: INR 2.1; Prothrombin Time 24.3 Seconds (11.1-14.7)
--- NOTE | 2024-08-19 19:41 | PC.NURSE ---
Updated spouse Madelin, on patient condition and plan of care.
[2024-08-19 23:32] LABS: Partial Thromboplastin Time > 200.0 Seconds (22.3-36.8)
[2024-08-20] VITALS (20 sets, daily range): BP systolic 92–147; BP diastolic 60–93; PULSE 82–107; RESP 16–20; TEMP 36.4–37.2; O2SAT 97–100
--- NOTE | 2024-08-20 01:48 | ADMGEN ---
This patient, Ross Canchola, was admitted to IMU Room 214-01. Patient/family oriented to hospital policies and general routines including ID bracelet, bed and alarms, visiting hours, pain management, procedures, bathroom and other care routines, personal items, smoking policy, room service/diet, and visiting hours. Information on how to activate the Rapid Response Team has been discussed. Patient/Family are encouraged to report perceived risks to care and to ask questions if they do not understand what they are told or what they should do. Daylight Savings Time For Daylight Savings Time Ending in the Fall - Clocks are moved back. For Daylight Savings Time Beginning in the Spring - Clocks are moved ahead. For [facility], the time of change occurs at 0200 hrs. Time is taken from the artillery or naval gunfire observer. This entry on the patient's chart recognizes the change in time reflected during documentation. Example: 2 entries for vital signs may be charted for 0200 hrs.
[2024-08-20] MEDS: METOPROLOL TARTRATE 25 MG TABLET PO ×4 (05:25→23:31)
[2024-08-20 07:41] LABS: Basophils Percent Auto 0.3 % (0.2-1.2); Eosinophils Percent Auto 0.2 % (0-4.4); Hematocrit 42.2 % (42.0-52.0); Hemoglobin 13.9 g/dL (14.0-18.0); Immature Granulocyte Absolute 0.09 K/mm3 (0.00-0.031); Immature Granulocyte Percent A 0.8 % (0-0.5); Lymphocytes Absolute Auto 1.25 K/mm3 (0.9-3.2); Lymphocytes Percent Auto 10.6 % (18.3-44.2); Mean Corpuscular HGB Conc 32.9 g/dl (32-36); Mean Platelet Volume 11.8 fl (7.4-10.4); Monocytes Absolute Auto 1.1 K/mm3 (0.1-0.6); Monocytes Percent Auto 9.4 % (2.6-8.5); Neutrophils Absolute Auto 9.3 K/mm3 (1.3-6.7); Neutrophils Percent Auto 78.7 % (45.5-73.1); Nucleated Red Blood Cells Perc 0.7 % (0.0-0.2); Platelet Count Result 166 k/mm3 (150-375); Red Blood Count 4.35 M/mm3 (4.6-6.20); Red Cell Distribution Width 15.8 % (11.5-14.5); White Blood Count 11.8 K/mm3 (4.5-10.0)
[2024-08-20 08:12] LABS: Partial Thromboplastin Time 166.6 Seconds (22.3-36.8)
[2024-08-20 08:34] LABS: Albumin Level 3.8 g/dL (3.5-5.1); Alkaline Phosphatase 113 U/L (38-126); Anion Gap 10 mmol/L (4-12); Aspartate Amino Transferase 742 U/L (17-59); Bilirubin,Total 3.6 mg/dL (0.2-1.3); Blood Urea Nitrogen 47 mg/dL (9-20); Calcium 8.6 mg/dL (8.4-10.2); Carbon Dioxide 26 mmol/L (22-30); Chloride 95 mmol/L (98-107); Estimated CRCL calculation 49 ml/min; Estimated Glomerular Filt Rate > 60; Glucose 107 mg/dL (65-110); Potassium 4.6 mmol/L (3.4-5.0); Sodium 131 mmol/L (137-145)
[2024-08-20 08:48] LABS: Alanine Aminotransferase 815 U/L (6-50)
--- NOTE | 2024-08-20 09:15 | P.PNCA_ITS ---
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 Repeat echocardiogram done during this hospitalization shows severe systolic dysfunction and evidence of pleural effusion. * Continue Lasix 40 mg IV t.i.d. with monitoring volume status and electrolytes. * Has been unable to afford Entresto. * Continue to hold lisinopril 5 mg daily and Aldactone 25 mg daily due to low blood pressures. * Continue metoprolol * Has refused ICD for primary prevention in the past. (2) Atrial fibrillation with RVR: Code(s): I48.91 - Unspecified atrial fibrillation Status: Acute Assessment and Plan: * New diagnosis for the patient. * TSH was normal during this admission. * Heart rates are now better controlled. Continue metoprolol 25 mg q.6 hours. * [id number] of 7. Recommend anticoagulation for stroke prophylaxis. Discussed with patient, including risks vs benefits. Patient is agreeable to start anticoagulation. However, his speech is dysarthric, which is new and started a few days ago. Brain MRI showed old lacunar infarcts. Will start for now subc utaneous Lovenox and transition to p.o. anticoagulation when he is ready to be discharged (3) CAD (coronary artery disease): Code(s): I25.10 - Atherosclerotic heart disease of [place] coronary artery without angina pectoris Status: Acute Assessment and Plan: * stents to RCA and LCX in 2001, stent to LAD in 2007, stent to OM in 2018; has known BLOCK[employer] HEATED METAL FORMS fo the RCA * Stable. Continue home Plavix, statin. (4) Left bundle-branch block, unspecified: Code(s): I44.7 - Left bundle-branch block, unspecified Status: Acute Assessment and Plan: Chronic (5) HTN (hypertension): Code(s): I10 - Essential (primary) hypertension Status: Acute Assessment and Plan: Blood pressure is soft. Hold both spironolactone 25 mg daily and lisinopril 5 mg daily (6) HLD (hyperlipidemia): Code(s): E78.5 - Hyperlipidemia, unspecified Status: Acute Assessment and Plan: Place rosuvastatin on hold because of elevated liver enzymes today . Liver enzymes are improving. Suspect liver enzymes elevation secondary to hepatic congestion Plan Recommendations and plan discussed with Hospitalist. Subjective Date/time seen: 08/20/24 09:15 Interval history: 08/19-remains in AFib today with heart rates 100-115 beats per minute. Shortness of breath improved. On 2 L nasal cannula. No chest pain 08/20-feels better today. Heart rates are improved. Still on 2 L nasal cannula. Exam Const: General: no acute distress HENMT: Mouth: Yes moist mucous membranes Other: Wearing dentures Eyes: General: appearance normal, both eyes and all related structures Sclera: sclerae normal Resp: Effort & Inspection: normal respiratory effort Auscultation: diminished lung sounds Cardio: Rhythm: abnormal rhythm irregularly irregular Heart sounds: no murmurs Skin: General skin exam: normal color Neuro: Speech: normal speech Other: His speech appears dysarthric Psych: Mental Status: mental status grossly normal Affect: normal affect Objective Data Vital Signs Vital Signs: Vital Signs - 24 hr 08/19/24 11:43 08/19/24 12:40 08/19/24 12:30 Temperature 36.1 C L Pulse Rate 91 86 83 Respiratory Rate 16 16 Blood Pressure 120/86 Pulse Oximetry 98 Oxygen Delivery Nasal Cannula Oxygen Flow Rate 2 Fraction of Inspired Oxygen 08/19/24 15:37 08/19/24 15:45 08/19/24 16:00 Temperature 36.1 C L Pulse Rate 86 90 Respiratory Rate 16 16 Blood Pressure 155/113 H 90/68 L Pulse Oximetry 99 99 Oxygen Delivery Nasal Cannula Oxygen Flow Rate 2 Fraction of Inspired Oxygen 08/19/24 13:00 08/19/24 14:00 08/19/24 16:00 Temperature Pulse Rate 94 89 93 Respiratory Rate Blood Pressure Pulse Oximetry Oxygen Delivery Oxygen Flow Rate Fraction of Inspired Oxygen 08/19/24 17:45 08/19/24 18:00 08/19/24 20:00 Temperature 36.8 C Pulse Rate 86 95 72 Respiratory Rate 18 Blood Pressure 121/58 L Pulse Oximetry 97 Oxygen Delivery Oxygen Flow Rate Fraction of Inspired Oxygen 08/19/24 20:00 08/19/24 20:00 08/19/24 22:00 Temperature Pulse Rate 86 86 90 Respiratory Rate 18 Blood Pressure Pulse Oximetry 97 Oxygen Delivery Nasal Cannula Oxygen Flow Rate 2 Fraction of Inspired Oxygen 28 08/19/24 23:44 08/20/24 00:00 08/20/24 00:00 Temperature Pulse Rate 90 87 87 Respiratory Rate 18 Blood Pressure Pulse Oximetry 97 Oxygen Delivery Nasal Cannula Oxygen Flow Rate 2 Fraction of Inspired Oxygen 08/20/24 00:00 08/20/24 01:54 STUDIO ENGINEER 08/20/24 03:58 Temperature 36.4 C Pulse Rate 90 84 90 Respiratory Rate 18 Blood Pressure 147/93 H Pulse Oximetry 97 Oxygen Delivery Oxygen Flow Rate Fraction of Inspired Oxygen 08/20/24 03:58 08/20/24 04:00 08/20/24 05:25 Temperature 36.7 C Pulse Rate 90 85 88 Respiratory Rate 18 18 Blood Pressure 98/60 L Pulse Oximetry 97 100 Oxygen Delivery Nasal Cannula Oxygen Flow Rate 2 Fraction of Inspired Oxygen 08/20/24 05:36 08/20/24 08:00 Temperature 36.9 C Pulse Rate 90 94 Respiratory Rate 18 Blood Pressure 93/66 L Pulse Oximetry 100 Oxygen Delivery Oxygen Flow Rate Fraction of Inspired Oxygen Intake/Output Intake/Output: Intake & Output 08/17/24 08/18/24 08/19/24 08/20/24 23:59 23:59 23:59 22:59 Intake Total 270 1127.3 212.4 Output Total 540 1175 750 Balance -270 -47.7 -537.6 Meds/Results Medications: Active Medications Generic Name Dose Route Start Last Admin Trade Name Freq PRN Reason Stop Dose Admin Hydrocodone Bitart/Acetaminophen 1 tab 08/18/24 16:29 Hydrocodone/Acetaminophen (*Crx) 5-325 Mg Tablet PO Q6H PRN pain Clopidogrel Bisulfate 75 mg 08/19/24 09:00 08/19/24 09:45 Clopidogrel Bisulfate 75 Mg Tablet PO 75 mg DAILY LAYA Administration Furosemide 40 mg 08/19/24 13:00 08/19/24 16:07 Furosemide Inj 40 Mg/4 Ml Vial IV PUSH 40 mg TID LAYA Administration Heparin Sodium (Porcine) 6,000 units 08/19/24 15:31 Heparin Sodium 5,000 Units/Ml Vial IV PUSH PRN PRN aPTT less than 55 seconds Heparin Sodium (Porcine) 3,000 units 08/19/24 15:31 Heparin Sodium 5,000 Units/Ml Vial IV PUSH PRN PRN aPTT 55 - 70 seconds Heparin Sodium/Dextrose 25,000 units in 250 mls @ 0 mls/hr 08/19/24 15:35 08/20/24 08:19 Heparin Sodium/D5w 100 Units/Ml IV CONT 0 units/hr .Q0M LAYA 0 mls/hr Titration Protocol Ipratropium [place] 2 spray 08/18/24 17:00 08/19/24 16:08 Ipratropium Nasal [place] 0.06% 15 Ml Bottle NASAL 2 spray TID LAYA Administration Metoprolol Tartrate 25 mg 08/19/24 07:45 08/20/24 05:25 Metoprolol Tartrate 25 Mg Tablet PO 25 mg Q6HR LAYA Administration Pantoprazole Sodium 40 mg 08/19/24 09:00 08/19/24 09:44 Pantoprazole 40 Mg Tablet PO 40 mg DAILY LAYA Administration Trazodone HCl 25 mg 08/18/24 23:15 08/19/24 21:42 Trazodone Hcl 25 Mg Tablet PO 25 mg HS LAYA Administration Trazodone HCl 200 mg 08/18/24 23:15 08/19/24 21:42 Trazodone Hcl 50 Mg Tablet PO 200 mg HS LAYA Administration Radiology Results: ITS Impressions Chest X-Ray 08/18/24 10:31 IMPRESSION: 1. Small bilateral pleural effusions with opacities at the bilateral lower lung zones and favor mild pulmonary edema over pneumonia. 2. Borderline heart size and enlargement of the central pulmonary arteries consistent with pulmonary arterial hypertension. Pulmonary Perfusion Imaging 08/18/24 13:36 IMPRESSION: 1. Intermediate probability for pulmonary embolism. Brain MRA 08/19/24 14:37 IMPRESSION: 1. Mild to moderate stenosis along the left A1 segment. 2. Small old right occipital lobe infarct and additional small old lacunar infarcts at the bilateral basal ganglia. Abdomen Ultrasound 08/19/24 14:49 IMPRESSION: 1. Dilation of the common bile duct to 14 mm but without intrahepatic ductal or ductal dilation. Although likely related to prior cholecystectomy, could not exclude a nonvisualized obstructing stone given the elevated liver function tests would consider MRCP for further evaluation. 2. Indeterminate 1 cm hepatic lesion for which further evaluation with pre and postcontrast MRI would be recommended. This could be performed at the same time as the MRCP. 3. Right pleural effusion. Labs Labs: Laboratory Results - last 24 hr 08/19/24 08/19/24 08/20/24 17:56 22:45 07:26 WBC 14.2 H 11.8 H RBC 4.27 L 4.35 L Hgb 13.1 L 13.9 L Hct 41.3 L 42.2 MCV 96.7 97.0 MCH 30.7 32.0 MCHC 31.7 L 32.9 RDW 15.7 H 15.8 H Plt Count 152 166 MPV 10.7 H 11.8 H Immature Gran % (Auto) 0.6 H 0.8 H Neut % (Auto) 83.9 H 78.7 H Lymph % (Auto) 7.0 L 10.6 L [place] % (Auto) 8.3 9.4 H Eos % (Auto) 0.0 0.2 Baso % (Auto) 0.2 0.3 Lymph # (Auto) 0.99 1.25 [place] # (Auto) 1.2 H 1.1 H Eos # (Auto) 0.0 0.0 Baso # (Auto) 0.0 0.0 Abs Immat Gran (auto) 0.09 H 0.09 H Absolute Neuts (auto) 11.9 H 9.3 H Absolute Nucleated RBC 0.230 H 0.080 H Nucleated RBC % 1.6 H 0.7 H PT 24.3 H D INR 2.1 APTT 72.0 H > 200.0 H* Sodium 131 L Potassium 4.6 Chloride 95 L Carbon Dioxide 26 Anion Gap 10 BUN 47 H Creatinine 1.10 Estim Creat Clear Calc 49 Estimated GFR > 60 Glucose 107 Calcium 8.6 Total Bilirubin 3.6 H AST 742 H ALT 815 H Alkaline Phosphatase 113 Total Protein 6.0 L Albumin 3.8 08/20/24 07:27 WBC RBC Hgb Hct MCV MCH MCHC RDW Plt Count MPV Immature Gran % (Auto) Neut % (Auto) Lymph % (Auto) [place] % (Auto) Eos % (Auto) Baso % (Auto) Lymph # (Auto) [place] # (Auto) Eos # (Auto) Baso # (Auto) Abs Immat Gran (auto) Absolute Neuts (auto) Absolute Nucleated RBC Nucleated RBC % PT INR APTT 166.6 H* Sodium Potassium Chloride Carbon Dioxide Anion Gap BUN Creatinine Estim Creat Clear Calc Estimated GFR Glucose Calcium Total Bilirubin AST ALT Alkaline Phosphatase Total Protein Albumin
[2024-08-20] MEDS: IPRATROPIUM NASAL SPRAY 0.06% 15 ML BOTTLE 2 SPRAY NASAL ×3 (09:30→17:47)
[2024-08-20] MEDS: CLOPIDOGREL BISULFATE 75 MG TABLET PO (09:30)
[2024-08-20] MEDS: PANTOPRAZOLE 40 MG TABLET PO (09:30)
--- NOTE | 2024-08-20 09:39 | PM.IMPN ---
Progress Note: A&P Assessment and Plan (1) Atrial fibrillation with RVR: Code(s): I48.91 - Unspecified atrial fibrillation Status: Acute Assessment and Plan: - EKG on admission: A-Fib RVR with LBBB. - Patient maintains A-Fib on telemetry, now controlled rate in the 80's. - Started on Heparin drip yesterday but changed to Lovenox SQ per electrolysis engineer recommendations. - Metoprolol ER for rate control with rate increased to 25 mg Q6hrs per [employer]ter. - Appreciate electrolysis engineer assistance. - Continue tele monitoring. (2) Acute hypoxic respiratory failure: Code(s): J96.01 - Acute respiratory failure with hypoxia Status: Acute Assessment and Plan: - Likely related to A-Fib, +/vs Acute on Chronic CHF + Cardiomyopathy with EF 15-20. - Continue A-Fib rate control with metoprolol. - Continue diuresis with IV lasix. - Strict I &O's with daily weights. - Currently good O2 sats > 94 % on 2L/NC. - Continue supplemental O2 to maintain sats > 90 %. - Repeat CXR today to r/o PNA. 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 - Continue diuresis with 80 mg IV Lasix. - Daily weights with strict I & O's. - Last ECHO 10/2012 showed reduced EF with global dyskinesia at 15-20 %. - Repeat ECHO pending. - Refused ICD previously per electrolysis engineer. - Continue Toprolol, now Q6hrs if BP allows. (4) Elevated LFTs: Code(s): R79.89 - Other specified abnormal findings of blood chemistry Status: Acute Assessment and Plan: - Possibly secondary to CHF exacerbation. - US RUQ Abdomen: Dilation of the common bile duct to 14 mm but without intrahepatic ductal or ductal dilation. Although likely related to prior cholecystectomy, could not exclude a nonvisualized obstructing stone given the elevated liver function tests would consider MRCP for further evaluation. - Right pleural effusion. - Trending down and we'll monitor for now. (5) Dysarthria following cerebral infarction: Code(s): I69.322 - Dysarthria following cerebral infarction Status: Acute Assessment and Plan: - Unclear etiology or whether acute or chronic. - MRA brain negative. - Appears baseline. - LDL 64. - TT ECHO pending. (6) Type 2 diabetes mellitus without complications: Onset Date: 05/2024 Code(s): E11.9 - Type 2 diabetes mellitus without complications Status: Acute Assessment and Plan: - Appears fairly well controlled. - Continue to hold hypoglycemics for now. - A1C 6.4 (7) HLD (hyperlipidemia): Code(s): E78.5 - Hyperlipidemia, unspecified Status: Acute Assessment and Plan: - Continue Statin. (8) CAD (coronary artery disease): Code(s): I25.10 - Atherosclerotic heart disease of [place] coronary artery without angina pectoris Status: Acute Assessment and Plan: - Stable. - Continue statin, plavix and metoprolol. (9) Ischemic cardiomyopathy: Code(s): I25.5 - Ischemic cardiomyopathy Status: Acute Assessment and Plan: - Mgt as # 3. - Refused ICD previously per electrolysis engineer. - Continue tele monitoring. - Appreciate electrolysis engineer assistance. - ECHO pending. (10) HTN (hypertension): Code(s): I10 - Essential (primary) hypertension Status: Acute Assessment and Plan: - Currently trending low with diuresis. - Continue to monitor closely with diuresis and Toprolol use. (11) Pure hypercholesterolemia, unspecified: Code(s): E78.00 - Pure hypercholesterolemia, unspecified Status: Acute Assessment and Plan: - Statin restarted. - Check LDL 64. (12) GERD (gastroesophageal reflux disease): Code(s): K21.9 - Gastro-esophageal reflux disease without esophagitis Status: Acute Assessment and Plan: - Pantoprazole resumed. (13) Arthritis: Code(s): M19.90 - Unspecified osteoarthritis, unspecified site Status: Acute Assessment and Plan: - Pain meds PRN. Subjective Date/time seen: 08/20/24 09:39 Patient states he feels slightly better but he's still feeling SOB despite being on supplemental O2. Interval history: Patient on bedrest with conversational dyspnea. Appears weak and lethargic. Currently on 2L/NC with sats in the high 90's. Review of Systems Review of Systems: All systems reviewed & are unremarkable except as noted in HPI and below Exam Narrative: General: Weak appearing with constitutional dyspnea. HEENT: Atraumatic, [place], non-icteric, moist mucosa. NECK: Supple. Lungs: Faint crackles to bases. HEART: Irregularly irregular, no murmurs. ABDOMEN: Soft, non-tender, non-distended, +ve bowel sounds X4 Quadrants. Extremities: No edema or redness. Skin: Intact with no lesions. Neuro: Well oriented. No focal neuro deficits. Psych: Pleasant and co-operative. Objective Data Vital Signs Vital Signs: Vital Signs - 24 hr 08/19/24 11:43 08/19/24 12:40 08/19/24 12:30 Temperature 97 F L Pulse Rate 91 86 83 Respiratory Rate 16 16 Blood Pressure 120/86 Pulse Oximetry 98 Oxygen Delivery Nasal Cannula Oxygen Flow Rate 2 Fraction of Inspired Oxygen 08/19/24 15:37 08/19/24 15:45 08/19/24 16:00 Temperature 97 F L Pulse Rate 86 90 Respiratory Rate 16 16 Blood Pressure 155/113 H 90/68 L Pulse Oximetry 99 99 Oxygen Delivery Nasal Cannula Oxygen Flow Rate 2 Fraction of Inspired Oxygen 08/19/24 13:00 08/19/24 14:00 08/19/24 16:00 Temperature Pulse Rate 94 89 93 Respiratory Rate Blood Pressure Pulse Oximetry Oxygen Delivery Oxygen Flow Rate Fraction of Inspired Oxygen 08/19/24 17:45 08/19/24 18:00 08/19/24 20:00 Temperature 98.2 F Pulse Rate 86 95 72 Respiratory Rate 18 Blood Pressure 121/58 L Pulse Oximetry 97 Oxygen Delivery Oxygen Flow Rate Fraction of Inspired Oxygen 08/19/24 20:00 08/19/24 20:00 08/19/24 22:00 Temperature Pulse Rate 86 86 90 Respiratory Rate 18 Blood Pressure Pulse Oximetry 97 Oxygen Delivery Nasal Cannula Oxygen Flow Rate 2 Fraction of Inspired Oxygen 08/19/24 23:44 08/20/24 00:00 08/20/24 00:00 Temperature Pulse Rate 90 87 87 Respiratory Rate 18 Blood Pressure Pulse Oximetry 97 Oxygen Delivery Nasal Cannula Oxygen Flow Rate 2 Fraction of Inspired Oxygen 08/20/24 00:00 08/20/24 01:54 IRRIGATION EQUIPMENT INSTALLER 08/20/24 03:58 Temperature 97.6 F Pulse Rate 90 84 90 Respiratory Rate 18 Blood Pressure 147/93 H Pulse Oximetry 97 Oxygen Delivery Oxygen Flow Rate Fraction of Inspired Oxygen 08/20/24 03:58 08/20/24 04:00 08/20/24 05:25 Temperature 98.0 F Pulse Rate 90 85 88 Respiratory Rate 18 18 Blood Pressure 98/60 L Pulse Oximetry 97 100 Oxygen Delivery Nasal Cannula Oxygen Flow Rate 2 Fraction of Inspired Oxygen 28 08/20/24 05:36 08/20/24 08:00 Temperature 98.4 F Pulse Rate 90 94 Respiratory Rate 18 Blood Pressure 93/66 L Pulse Oximetry 100 Oxygen Delivery Oxygen Flow Rate Fraction of Inspired Oxygen Intake/Output Intake/Output: Intake & Output 08/17/24 08/18/24 08/19/24 08/20/24 23:59 23:59 23:59 22:59 Intake Total 270 1127.3 212.4 Output Total 540 1175 750 Balance -270 -47.7 -537.6 Meds/Results Medications: Active Medications Generic Name Dose Route Start Last Admin Trade Name Freq PRN Reason Stop Dose Admin Hydrocodone Bitart/Acetaminophen 1 tab 08/18/24 16:29 Hydrocodone/Acetaminophen (*Crx) 5-325 Mg Tablet PO Q6H PRN pain Clopidogrel Bisulfate 75 mg 08/19/24 09:00 08/20/24 09:30 Clopidogrel Bisulfate 75 Mg Tablet PO 75 mg DAILY LAYA Administration Enoxaparin Sodium 80 mg 08/20/24 21:00 Enoxaparin 80 Mg/0.8 Ml Syringe SUB-Q Q12HR LAYA Furosemide 40 mg 08/19/24 13:00 08/20/24 09:28 Furosemide Inj 40 Mg/4 Ml Vial IV PUSH Not Given TID LAYA Ipratropium [place] 2 spray 08/18/24 17:00 08/20/24 09:30 Ipratropium Nasal [place] 0.06% 15 Ml Bottle NASAL 2 spray TID LAYA Administration Metoprolol Tartrate 25 mg 08/19/24 07:45 08/20/24 05:25 Metoprolol Tartrate 25 Mg Tablet PO 25 mg Q6HR LAYA Administration Pantoprazole Sodium 40 mg 08/19/24 09:00 08/20/24 09:30 Pantoprazole 40 Mg Tablet PO 40 mg DAILY LAYA Administration Trazodone HCl 25 mg 08/18/24 23:15 08/19/24 21:42 Trazodone Hcl 25 Mg Tablet PO 25 mg HS LAYA Administration Trazodone HCl 200 mg 08/18/24 23:15 08/19/24 21:42 Trazodone Hcl 50 Mg Tablet PO 200 mg HS LAYA Administration Radiology Results: ITS Impressions Chest X-Ray 08/18/24 10:31 IMPRESSION: 1. Small bilateral pleural effusions with opacities at the bilateral lower lung zones and favor mild pulmonary edema over pneumonia. 2. Borderline heart size and enlargement of the central pulmonary arteries consistent with pulmonary arterial hypertension. Pulmonary Perfusion Imaging 08/18/24 13:36 IMPRESSION: 1. Intermediate probability for pulmonary embolism. Brain MRA 08/19/24 14:37 IMPRESSION: 1. Mild to moderate stenosis along the left A1 segment. 2. Small old right occipital lobe infarct and additional small old lacunar infarcts at the bilateral basal ganglia. Abdomen Ultrasound 08/19/24 14:49 IMPRESSION: 1. Dilation of the common bile duct to 14 mm but without intrahepatic ductal or ductal dilation. Although likely related to prior cholecystectomy, could not exclude a nonvisualized obstructing stone given the elevated liver function tests would consider MRCP for further evaluation. 2. Indeterminate 1 cm hepatic lesion for which further evaluation with pre and postcontrast MRI would be recommended. This could be performed at the same time as the MRCP. 3. Right pleural effusion. Labs Labs: Laboratory Results - last 24 hr 08/19/24 08/19/24 08/20/24 17:56 22:45 07:26 WBC 14.2 H 11.8 H RBC 4.27 L 4.35 L Hgb 13.1 L 13.9 L Hct 41.3 L 42.2 MCV 96.7 97.0 MCH 30.7 32.0 MCHC 31.7 L 32.9 RDW 15.7 H 15.8 H Plt Count 152 166 MPV 10.7 H 11.8 H Immature Gran % (Auto) 0.6 H 0.8 H Neut % (Auto) 83.9 H 78.7 H Lymph % (Auto) 7.0 L 10.6 L [place] % (Auto) 8.3 9.4 H Eos % (Auto) 0.0 0.2 Baso % (Auto) 0.2 0.3 Lymph # (Auto) 0.99 1.25 [place] # (Auto) 1.2 H 1.1 H Eos # (Auto) 0.0 0.0 Baso # (Auto) 0.0 0.0 Abs Immat Gran (auto) 0.09 H 0.09 H Absolute Neuts (auto) 11.9 H 9.3 H Absolute Nucleated RBC 0.230 H 0.080 H Nucleated RBC % 1.6 H 0.7 H PT 24.3 H D INR 2.1 APTT 72.0 H > 200.0 H* Sodium 131 L Potassium 4.6 Chloride 95 L Carbon Dioxide 26 Anion Gap 10 BUN 47 H Creatinine 1.10 Estim Creat Clear Calc 49 Estimated GFR > 60 Glucose 107 Calcium 8.6 Total Bilirubin 3.6 H AST 742 H ALT 815 H Alkaline Phosphatase 113 Total Protein 6.0 L Albumin 3.8 08/20/24 07:27 WBC RBC Hgb Hct MCV MCH MCHC RDW Plt Count MPV Immature Gran % (Auto) Neut % (Auto) Lymph % (Auto) [place] % (Auto) Eos % (Auto) Baso % (Auto) Lymph # (Auto) [place] # (Auto) Eos # (Auto) Baso # (Auto) Abs Immat Gran (auto) Absolute Neuts (auto) Absolute Nucleated RBC Nucleated RBC % PT INR APTT 166.6 H* Sodium Potassium Chloride Carbon Dioxide Anion Gap BUN Creatinine Estim Creat Clear Calc Estimated GFR Glucose Calcium Total Bilirubin AST ALT Alkaline Phosphatase Total Protein Albumin Quality VTE Prophylaxis VTE prophylaxis: mechanical ordered Hospitalist MIPS Advance Care Plan I have confirmed that the patient's Advanced Care Plan is present, code status is documented, or surrogate decision maker is listed in patient medical record.: Yes Medication Reconciliation I have utilized all available resources to obtain, update and review the patients current medications (includes all prescriptions, OTC, herbals, cannabis, and nutritional supplements).: Yes
[2024-08-20] MEDS: traZODone HCL 25 MG TABLET PO (20:55)
[2024-08-20] MEDS: ENOXAPARIN 80 MG/0.8 ML SYRINGE SUB-Q (20:55)
[2024-08-20] MEDS: traZODone HCL 50 MG TABLET 200 MG PO (20:55)
[2024-08-20] MEDS: FUROSEMIDE INJ 40 MG/4 ML VIAL IV PUSH (20:56)
[2024-08-21] VITALS (23 sets, daily range): BP systolic 95–108; BP diastolic 60–70; PULSE 81–110; RESP 18–44; TEMP 36.2–37.1; O2SAT 92–100
[2024-08-21] MEDS: METOPROLOL TARTRATE 25 MG TABLET PO ×4 (05:11→23:59)
[2024-08-21 05:54] LABS: Hematocrit 40.5 % (42.0-52.0); Hemoglobin 13.2 g/dL (14.0-18.0); Mean Corpuscular HGB Conc 32.6 g/dl (32-36); Mean Corpuscular Hemoglobin 31.4 pg (26-34); Mean Corpuscular Volume 96.4 fl (80-100); Mean Platelet Volume 11.1 fl (7.4-10.4); Platelet Count Result 117 k/mm3 (150-375); Red Cell Distribution Width 15.6 % (11.5-14.5); White Blood Count 13.8 K/mm3 (4.5-10.0)
[2024-08-21 06:05] LABS: Anion Gap 12 mmol/L (4-12); Blood Urea Nitrogen 44 mg/dL (9-20); Calcium 8.3 mg/dL (8.4-10.2); Carbon Dioxide 23 mmol/L (22-30); Chloride 93 mmol/L (98-107); Estimated CRCL calculation 50 ml/min; Estimated Glomerular Filt Rate > 60; Glucose 113 mg/dL (65-110); Potassium 4.1 mmol/L (3.4-5.0); Sodium 128 mmol/L (137-145)
--- NOTE | 2024-08-21 08:37 | P.PNCA_ITS ---
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 Repeat echocardiogram done during this hospitalization shows severe systolic dysfunction and evidence of pleural effusion. * Continue Lasix 40 mg IV t.i.d today with monitoring volume status and electrolytes. * Has been unable to afford Entresto. * Continue to hold lisinopril 5 mg daily and Aldactone 25 mg daily due to low blood pressures. Resume when blood pressure allows * Continue metoprolol * Has refused ICD for primary prevention in the past. (2) Atrial fibrillation with RVR: Code(s): I48.91 - Unspecified atrial fibrillation Status: Acute Assessment and Plan: * New diagnosis for the patient. * TSH was normal during this admission. * Heart rates are now better controlled. Continue metoprolol 25 mg q.6 hours. * [id number] of 7. Recommend anticoagulation for stroke prophylaxis. Discussed with patient, including risks vs benefits. Patient is agreeable to start anticoagulation. However, his speech is dysarthric, which is new and started a few days ago. Brain MRI showed old lacunar infarcts. Will start for now subcutaneous Lovenox and transition to p.o. anticoagulation when he is ready to be discharged (3) CAD (coronary artery disease): Code(s): I25.10 - Atherosclerotic heart disease of [place] coronary artery without angina pectoris Status: Acute Assessment and Plan: * stents to RCA and LCX in 2001, stent to LAD in 2007, stent to OM in 2018; has known ED TEACHER fo the RCA * Stable. Continue home Plavix, statin. (4) Left bundle-branch block, unspecified: Code(s): I44.7 - Left bundle-branch block, unspecified Status: Acute Assessment and Plan: Chronic (5) HTN (hypertension): Code(s): I10 - Essential (primary) hypertension Status: Acute Assessment and Plan: Blood pressure is soft. Hold both spironolactone 25 mg daily and lisinopril 5 mg daily. Resume when able - hopefully when he has diuresed more and no longer requires IV lasix we will be able to add back his GDMT (6) HLD (hyperlipidemia): Code(s): E78.5 - Hyperlipidemia, unspecified Status: Acute Assessment and Plan: Check CMP tomorrow to trend LFT's and resume statin if appropriate. Subjective Date/time seen: 08/21/24 08:37 Interval history: 08/19-remains in AFib today with heart rates 100-115 beats per minute. Shortness of breath improved. On 2 L nasal cannula. No chest pain 08/20-feels better today. Heart rates are improved. Still on 2 L nasal cannula. Date of service 08/21/2024: He reports some shortness of breath but he is off oxygen today and seems to be breathing comfortably while lying flat. Review of Systems Review of Systems: All systems reviewed & are unremarkable except as noted in HPI and below (HPI) Exam Const: General: no acute distress HENMT: Mouth: Yes moist mucous membranes Other: edentulous Eyes: General: appearance normal, both eyes and all related structures Sclera: sclerae normal Resp: Effort & Inspection: normal respiratory effort Auscultation: diminished lung sounds Cardio: Rate: regular rate Rhythm: abnormal rhythm irregularly irregular Heart sounds: no murmurs Skin: General skin exam: normal color Neuro: Speech: normal speech Other: His speech appears dysarthric Psych: Mental Status: mental status grossly normal Affect: normal affect Objective Data Vital Signs Vital Signs: Vital Signs - 24 hr 08/20/24 12:00 08/20/24 12:29 08/20/24 13:59 Temperature 37.2 C 36.9 C Pulse Rate 96 99 83 Respiratory Rate 20 18 Blood Pressure 98/78 L 92/66 L Pulse Oximetry 100 100 Oxygen Delivery Oxygen Flow Rate 08/20/24 10:00 08/20/24 12:00 08/20/24 12:00 Temperature Pulse Rate 84 104 H Respiratory Rate Blood Pressure Pulse Oximetry 100 Oxygen Delivery Nasal Cannula Oxygen Flow Rate 2 08/20/24 14:00 08/20/24 16:00 08/20/24 17:47 Temperature 37.2 C Pulse Rate 86 90 107 H Respiratory Rate 16 Blood Pressure 100/69 Pulse Oximetry 100 Oxygen Delivery Oxygen Flow Rate 08/20/24 16:00 08/20/24 18:00 08/20/24 16:00 Temperature Pulse Rate 82 95 Respiratory Rate Blood Pressure Pulse Oximetry 100 Oxygen Delivery Nasal Cannula Oxygen Flow Rate 2 08/20/24 20:21 08/20/24 20:00 08/20/24 20:00 Temperature 37.0 C Pulse Rate 90 88 Respiratory Rate 16 Blood Pressure 96/75 L Pulse Oximetry 100 100 Oxygen Delivery Nasal Cannula Oxygen Flow Rate 3 08/20/24 22:00 08/20/24 23:30 08/20/24 23:31 Temperature 36.5 C Pulse Rate 87 90 90 Respiratory Rate 16 Blood Pressure 99/62 L Pulse Oximetry 100 Oxygen Delivery Oxygen Flow Rate 08/21/24 00:00 08/21/24 00:00 08/21/24 02:00 Temperature Pulse Rate 95 88 Respiratory Rate Blood Pressure Pulse Oximetry 100 Oxygen Delivery Nasal Cannula Oxygen Flow Rate 2 08/21/24 04:00 08/21/24 04:00 08/21/24 05:08 Temperature 36.4 C Pulse Rate 90 87 Respiratory Rate 20 Blood Pressure 95/65 L Pulse Oximetry 100 100 Oxygen Delivery Nasal Cannula Oxygen Flow Rate 1 08/21/24 05:11 08/21/24 06:00 08/21/24 07:43 Temperature 36.4 C L Pulse Rate 87 92 88 Respiratory Rate 20 Blood Pressure 101/64 Pulse Oximetry 99 Oxygen Delivery Oxygen Flow Rate Intake/Output Intake/Output: Intake & Output 08/19/24 08/20/24 08/20/24 08/21/24 00:59 00:59 23:59 23:59 Intake Total 250 Output Total 600 Balance -350 Meds/Results Medications: Active Medications Generic Name Dose Route Start Last Admin Trade Name Freq PRN Reason Stop Dose Admin Hydrocodone Bitart/Acetaminophen 1 tab 08/18/24 16:29 Hydrocodone/Acetaminophen (*Crx) 5-325 Mg Tablet PO Q6H PRN pain Clopidogrel Bisulfate 75 mg 08/19/24 09:00 08/20/24 09:30 Clopidogrel Bisulfate 75 Mg Tablet PO 75 mg DAILY LAYA Administration Enoxaparin Sodium 80 mg 08/20/24 21:00 08/20/24 20:55 Enoxaparin 80 Mg/0.8 Ml Syringe SUB-Q 80 mg Q12HR LAYA Administration Furosemide 40 mg 08/19/24 13:00 08/20/24 20:56 Furosemide Inj 40 Mg/4 Ml Vial IV PUSH 40 mg TID LAYA Administration Ipratropium [place] 2 spray 08/18/24 17:00 08/20/24 17:47 Ipratropium Nasal [place] 0.06% 15 Ml Bottle NASAL 2 spray TID LAYA Administration Metoprolol Tartrate 25 mg 08/19/24 07:45 08/21/24 05:11 Metoprolol Tartrate 25 Mg Tablet PO 25 mg Q6HR LAYA Administration Pantoprazole Sodium 40 mg 08/19/24 09:00 08/20/24 09:30 Pantoprazole 40 Mg Tablet PO 40 mg DAILY LAYA Administration Trazodone HCl 25 mg 08/18/24 23:15 08/20/24 20:55 Trazodone Hcl 25 Mg Tablet PO 25 mg HS LAYA Administration Trazodone HCl 200 mg 08/18/24 23:15 08/20/24 20:55 Trazodone Hcl 50 Mg Tablet PO 200 mg HS LAYA Administration Radiology Results: ITS Impressions Chest X-Ray 08/18/24 10:31 IMPRESSION: 1. Small bilateral pleural effusions with opacities at the bilateral lower lung zones and favor mild pulmonary edema over pneumonia. 2. Borderline heart size and enlargement of the central pulmonary arteries consistent with pulmonary arterial hypertension. Pulmonary Perfusion Imaging 08/18/24 13:36 IMPRESSION: 1. Intermediate probability for pulmonary embolism. Brain MRA 08/19/24 14:37 IMPRESSION: 1. Mild to moderate stenosis along the left A1 segment. 2. Small old right occipital lobe infarct and additional small old lacunar infarcts at the bilateral basal ganglia. Abdomen Ultrasound 08/19/24 14:49 IMPRESSION: 1. Dilation of the common bile duct to 14 mm but without intrahepatic ductal or ductal dilation. Although likely related to prior cholecystectomy, could not exclude a nonvisualized obstructing stone given the elevated liver function tests would consider MRCP for further evaluation. 2. Indeterminate 1 cm hepatic lesion for which further evaluation with pre and postcontrast MRI would be recommended. This could be performed at the same time as the MRCP. 3. Right pleural effusion. Labs Labs: Laboratory Results - last 24 hr 08/20/24 08/21/24 07:26 05:43 WBC 13.8 H RBC 4.20 L Hgb 13.2 L Hct 40.5 L MCV 96.4 MCH 31.4 MCHC 32.6 RDW 15.6 H Plt Count 117 L MPV 11.1 H Sodium 128 L Potassium 4.1 Chloride 93 L Carbon Dioxide 23 Anion Gap 12 BUN 44 H Creatinine 1.10 Estim Creat Clear Calc 50 Estimated GFR > 60 Glucose 113 H Calcium 8.3 L ALT 815 H
[2024-08-21 09:08] LABS: CRP 3.6 mg/dL (<1.0)
[2024-08-21 09:29] LABS: Erythrocyte Sedimentation Rate 1 mm/hr (0-20)
[2024-08-21] MEDS: IPRATROPIUM NASAL SPRAY 0.06% 15 ML BOTTLE 2 SPRAY NASAL ×3 (09:40→18:09)
[2024-08-21] MEDS: CLOPIDOGREL BISULFATE 75 MG TABLET PO (09:40)
[2024-08-21] MEDS: PANTOPRAZOLE 40 MG TABLET PO (09:40)
[2024-08-21] MEDS: FUROSEMIDE INJ 40 MG/4 ML VIAL IV PUSH ×3 (09:40→18:08)
[2024-08-21] MEDS: ENOXAPARIN 80 MG/0.8 ML SYRINGE SUB-Q ×2 (09:40→20:10)
--- NOTE | 2024-08-21 10:19 | P.PNIM_ITS ---
Progress Note: A&P Assessment and Plan (1) Atrial fibrillation with RVR: Code(s): I48.91 - Unspecified atrial fibrillation Status: Acute Assessment and Plan: - EKG on admission: A-Fib RVR with LBBB. - Patient maintains A-Fib on telemetry, now controlled rate in the 80's. - Currently on Lovenox SQ per entry level account representative recommendations for anticoagulation. - Continue Metoprolol ER 25 mg Q6hrs per [employer]. - Appreciate entry level account representative assistance. - Continue tele monitoring. (2) Acute hypoxic respiratory failure: Code(s): J96.01 - Acute respiratory failure with hypoxia Status: Acute Assessment and Plan: - Likely related to A-Fib, +/vs Acute on Chronic CHF + Cardiomyopathy with EF 15-20. - Improving, with O2 sats currently > 95 % on RA. - Continue A-Fib rate control with metoprolol. - Continue diuresis with IV lasix. - Strict I &O's with daily weights. - Supplemental O2 PRN to maintain sats > 90 %. - Repeat CXR; Atelectasis vs PNA. - Looking more alert today and no O2 requirements. - we'll hold off abx for now. 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 - Continue diuresis with 80 mg IV Lasix. - Lasix held 3X yesterday due to low BP. - Daily weights with strict I & O's. - Continue to monitor I & O's. - Last ECHO 10/2012 showed reduced EF with global dyskinesia at 15-20 %. - Repeat ECHO 08/18/24 shows EF 20-25 %. - Refused ICD previously per entry level account representative. - Continue diuresis and Toprolol, now Q6hrs if BP allows. - Appreciate entry level account representative assistance. (4) Elevated LFTs: Code(s): R79.89 - Other specified abnormal findings of blood chemistry Status: Acute Assessment and Plan: - Possibly secondary to CHF exacerbation. - US RUQ Abdomen: Dilation of the common bile duct to 14 mm but without intrahepatic ductal or ductal dilation. Although likely related to prior cholecystectomy, could not exclude a nonvisualized obstructing stone given the elevated liver function tests would consider MRCP for further evaluation. - Right pleural effusion. - No abdominal pain and tolerating meals well. - Continue to monitor for now. (5) Dysarthria following cerebral infarction: Code(s): I69.322 - Dysarthria following cerebral infarction Status: Acute Assessment and Plan: - Unclear etiology or whether acute or chronic. - MRA brain negative. - Appears speech is baseline. - LDL 64. - TT ECHO with no intracardiac clots. - Patient on Plavix and Statin. - No further work-up for now. (6) Type 2 diabetes mellitus without complications: Onset Date: 05/2024 Code(s): E11.9 - Type 2 diabetes mellitus without complications Status: Acute Assessment and Plan: - Appears fairly well controlled. - Poor PO intake. - Continue to hold hypoglycemics for now. - A1C 6.4 (7) HLD (hyperlipidemia): Code(s): E78.5 - Hyperlipidemia, unspecified Status: Acute Assessment and Plan: - Continue Statin. (8) CAD (coronary artery disease): Code(s): I25.10 - Atherosclerotic heart disease of [place] coronary artery without angina pectoris Status: Acute Assessment and Plan: - Stable. - Continue statin, plavix and metoprolol. (9) Ischemic cardiomyopathy: Code(s): I25.5 - Ischemic cardiomyopathy Status: Acute Assessment and Plan: - Mgt as # 3. - Refused ICD previously per entry level account representative. - Continue tele monitoring. - Appreciate entry level account representative assistance. - Repeat ECHO 08/18/24 showing EF 20-25%. (10) HTN (hypertension): Code(s): I10 - Essential (primary) hypertension Status: Acute Assessment and Plan: - Currently trending low with diuresis. - Continue to monitor closely with diuresis and Toprolol use. (11) Pure hypercholesterolemia, unspecified: Code(s): E78.00 - Pure hypercholesterolemia, unspecified Status: Acute Assessment and Plan: - Statin restarted. - Check LDL 64. (12) GERD (gastroesophageal reflux disease): Code(s): K21.9 - Gastro-esophageal reflux disease without esophagitis Status: Acute Assessment and Plan: - Pantoprazole resumed. (13) Arthritis: Code(s): M19.90 - Unspecified osteoarthritis, unspecified site Status: Acute Assessment and Plan: - Pain meds PRN. Subjective Date/time seen: 08/21/24 10:19 Patient calm on bedrest, more alert today and stating feeling better. Asking when he'll be going home. Interval history: Patient presented to the ER with reports of worsening SOB. He has a Hx of systolic CHF with EF 15-20%. Patient previously declined pacemaker placement per [employer] Tester. Pt was also found with New-Onset A-Fib RVR> Pt is being diuresed and has been started on SQ Lovenox for A-Fib anticoagulation. [employer] Tester is assisting in stabilizing the patient. Review of Systems Review of Systems: All systems reviewed & are unremarkable except as noted in HPI and below Exam Narrative: General: Alert, weak appearing but in no acute distress. HEENT: Atraumatic, KASE[place], non-icteric, moist mucosa. NECK: Supple. Lungs: Faint crackles to bases. HEART: Irregularly irregular, no murmurs. ABDOMEN: Soft, non-tender, non-distended, +ve bowel sounds X4 Quadrants. Extremities: No edema or redness. Skin: Intact with no lesions. Neuro: Well oriented. No focal neuro deficits. Psych: Pleasant and co-operative. Objective Data Vital Signs Vital Signs: Vital Signs - 24 hr 08/20/24 12:00 08/20/24 12:29 08/20/24 13:59 Temperature 98.9 F 98.5 F Pulse Rate 96 99 83 Respiratory Rate 20 18 Blood Pressure 98/78 L 92/66 L Pulse Oximetry 100 100 Oxygen Delivery Oxygen Flow Rate Fraction of Inspired Oxygen 08/20/24 12:00 08/20/24 12:00 08/20/24 14:00 Temperature Pulse Rate 104 H 86 Respiratory Rate Blood Pressure Pulse Oximetry 100 Oxygen Delivery Nasal Cannula Oxygen Flow Rate 2 Fraction of Inspired Oxygen 08/20/24 16:00 08/20/24 17:47 08/20/24 16:00 Temperature 98.9 F Pulse Rate 90 107 H 82 Respiratory Rate 16 Blood Pressure 100/69 Pulse Oximetry 100 Oxygen Delivery Oxygen Flow Rate Fraction of Inspired Oxygen 08/20/24 18:00 08/20/24 16:00 08/20/24 20:21 Temperature 98.6 F Pulse Rate 95 90 Respiratory Rate 16 Blood Pressure 96/75 L Pulse Oximetry 100 100 Oxygen Delivery Nasal Cannula Oxygen Flow Rate 2 Fraction of Inspired Oxygen 08/20/24 20:00 08/20/24 20:00 08/20/24 22:00 Temperature Pulse Rate 88 87 Respiratory Rate Blood Pressure Pulse Oximetry 100 Oxygen Delivery Nasal Cannula Oxygen Flow Rate 3 Fraction of Inspired Oxygen 08/20/24 23:30 08/20/24 23:31 08/21/24 00:00 Temperature 97.7 F Pulse Rate 90 90 Respiratory Rate 16 Blood Pressure 99/62 L Pulse Oximetry 100 100 Oxygen Delivery Nasal Cannula Oxygen Flow Rate 2 Fraction of Inspired Oxygen 08/21/24 00:00 08/21/24 02:00 08/21/24 04:00 Temperature Pulse Rate 95 88 Respiratory Rate Blood Pressure Pulse Oximetry 100 Oxygen Delivery Nasal Cannula Oxygen Flow Rate 1 Fraction of Inspired Oxygen 08/21/24 04:00 08/21/24 05:08 08/21/24 05:11 Temperature 97.6 F Pulse Rate 90 87 87 Respiratory Rate 20 Blood Pressure 95/65 L Pulse Oximetry 100 Oxygen Delivery Oxygen Flow Rate Fraction of Inspired Oxygen 08/21/24 06:00 08/21/24 07:43 08/21/24 09:07 Temperature 97.5 F L Pulse Rate 92 88 Respiratory Rate 20 Blood Pressure 101/64 Pulse Oximetry 99 99 Oxygen Delivery Room Air Oxygen Flow Rate Fraction of Inspired Oxygen 21 Intake/Output Intake/Output: Intake & Output 08/19/24 08/20/24 08/20/24 08/21/24 00:59 00:59 23:59 23:59 Intake Total 490 Output Total 600 Balance -110 Meds/Results Medications: Active Medications Generic Name Dose Route Start Last Admin Trade Name Freq PRN Reason Stop Dose Admin Hydrocodone Bitart/Acetaminophen 1 tab 08/18/24 16:29 Hydrocodone/Acetaminophen (*Crx) 5-325 Mg Tablet PO Q6H PRN pain Clopidogrel Bisulfate 75 mg 08/19/24 09:00 08/21/24 09:40 Clopidogrel Bisulfate 75 Mg Tablet PO 75 mg DAILY LAYA Administration Enoxaparin Sodium 80 mg 08/20/24 21:00 08/21/24 09:40 Enoxaparin 80 Mg/0.8 Ml Syringe SUB-Q 80 mg Q12HR LAYA Administration Furosemide 40 mg 08/19/24 13:00 08/21/24 09:40 Furosemide Inj 40 Mg/4 Ml Vial IV PUSH 40 mg TID LAYA Administration Ipratropium [place] 2 spray 08/18/24 17:00 08/21/24 09:40 Ipratropium Nasal [place] 0.06% 15 Ml Bottle NASAL 2 spray TID LAYA Administration Metoprolol Tartrate 25 mg 08/19/24 07:45 08/21/24 05:11 Metoprolol Tartrate 25 Mg Tablet PO 25 mg Q6HR LAYA Administration Pantoprazole Sodium 40 mg 08/19/24 09:00 08/21/24 09:40 Pantoprazole 40 Mg Tablet PO 40 mg DAILY LAYA Administration Trazodone HCl 25 mg 08/18/24 23:15 08/20/24 20:55 Trazodone Hcl 25 Mg Tablet PO 25 mg HS LAYA Administration Trazodone HCl 200 mg 08/18/24 23:15 08/20/24 20:55 Trazodone Hcl 50 Mg Tablet PO 200 mg HS LAYA Administration Radiology Results: ITS Impressions Pulmonary Perfusion Imaging 08/18/24 13:36 IMPRESSION: 1. Intermediate probability for pulmonary embolism. Brain MRA 08/19/24 14:37 IMPRESSION: 1. Mild to moderate stenosis along the left A1 segment. 2. Small old right occipital lobe infarct and additional small old lacunar infarcts at the bilateral basal ganglia. Abdomen Ultrasound 08/19/24 14:49 IMPRESSION: 1. Dilation of the common bile duct to 14 mm but without intrahepatic ductal or ductal dilation. Although likely related to prior cholecystectomy, could not exclude a nonvisualized obstructing stone given the elevated liver function tests would consider MRCP for further evaluation. 2. Indeterminate 1 cm hepatic lesion for which further evaluation with pre and postcontrast MRI would be recommended. This could be performed at the same time as the MRCP. 3. Right pleural effusion. Chest X-Ray 08/21/24 09:08 IMPRESSION: Left basilar atelectasis versus pneumonia. Highly suggestive tracking effusion the right side. Cardiomegaly with congestive pamela which may indicate cardiac decompensation. Labs Labs: Laboratory Results - last 24 hr 08/21/24 08/21/24 05:38 05:43 WBC 13.8 H RBC 4.20 L Hgb 13.2 L Hct 40.5 L MCV 96.4 MCH 31.4 MCHC 32.6 RDW 15.6 H Plt Count 117 L MPV 11.1 H ESR 1 Sodium 128 L Potassium 4.1 Chloride 93 L Carbon Dioxide 23 Anion Gap 12 BUN 44 H Creatinine 1.10 Estim Creat Clear Calc 50 Estimated GFR > 60 Glucose 113 H Calcium 8.3 L C-Reactive Protein 3.6 H Quality VTE Prophylaxis VTE prophylaxis: mechanical ordered and pharmacologic ordered Hospitalist MIPS Advance Care Plan I have confirmed that the patient's Advanced Care Plan is present, code status is documented, or surrogate decision maker is listed in patient medical record.: Yes Medication Reconciliation I have utilized all available resources to obtain, update and review the patients current medications (includes all prescriptions, OTC, herbals, cannabis, and nutritional supplements).: Yes
[2024-08-21 11:22] LABS: Procalcitonin 0.3 ng/mL
--- NOTE | 2024-08-21 15:12 | PCCPR ---
Visited bedside to provide information for Cardiac Rehab upon discharge.
[2024-08-21] MEDS: traZODone HCL 50 MG TABLET 200 MG PO (20:10)
[2024-08-21] MEDS: traZODone HCL 25 MG TABLET PO (20:10)
[2024-08-22] VITALS (15 sets, daily range): BP systolic 91–106; BP diastolic 53–72; PULSE 76–113; RESP 20–36; TEMP 36.1–37.1; O2SAT 92–100
[2024-08-22 05:07] LABS: Hematocrit 39.6 % (42.0-52.0); Hemoglobin 13.2 g/dL (14.0-18.0); Mean Corpuscular HGB Conc 33.3 g/dl (32-36); Mean Corpuscular Hemoglobin 31.7 pg (26-34); Mean Platelet Volume 10.8 fl (7.4-10.4); Platelet Count Result 144 k/mm3 (150-375); Red Blood Count 4.17 M/mm3 (4.6-6.20); Red Cell Distribution Width 15.7 % (11.5-14.5); White Blood Count 15.5 K/mm3 (4.5-10.0)
[2024-08-22 05:23] LABS: Anion Gap 15 mmol/L (4-12); Blood Urea Nitrogen 53 mg/dL (9-20); Calcium 8.6 mg/dL (8.4-10.2); Carbon Dioxide 25 mmol/L (22-30); Chloride 90 mmol/L (98-107); Estimated CRCL calculation 39 ml/min; Estimated Glomerular Filt Rate 48; Glucose 147 mg/dL (65-110); Potassium 4.7 mmol/L (3.4-5.0); Sodium 130 mmol/L (137-145)
[2024-08-22] MEDS: METOPROLOL TARTRATE 25 MG TABLET PO (05:30)
--- NOTE | 2024-08-22 07:17 | PC.NURSE ---
Resting in bed abdominal breathing, RR 36, 88% on 2L. Pt increased to 5L to acheive O2 sat of 93%. Bilateral legs mottled. Drowsy and oriented to person, place, and time but reports seeing people in the room that aren't there. Speech garbled. Falls asleep mid sentence. States I don't feel good . Unable to articulate specific issue. [employer] equal to BUE. Pushes equal to BLE, able to lift legs off of bed momentarily. Attempting to eat pulse ox and pulling oxygen off. JENNIFER Hansen called and informed of status change. Requested provider come to bedside. Provider agreeable. Daughter, Marisa, made aware. , Madelin, made aware.
[2024-08-22 08:13] LABS: Alveolar/Arterial O2 Gradient 64.6 mmHg; Fractional Inspired Oxygen 28 %; HCO3 ABG 21.8 mEq/l (22.0-26.0); Oxygen Content ABG 19.2 %vol (16.0-22.0); Oxygen Saturation ABG 98.2 % (95.0-100.0); Oxyhemoglobin 96.9 % THb (90.0-100.0); PCO2 ABG 27.9 mmHg (35.0-45.0); PO2 ABG 102.1 mmHg (80.0-100.0); PO2 FiO2 Ratio Arterial Blood 3.65 %
[2024-08-22 08:16] LABS: Device NASAL CANNULA; Site Drawn LEFT BRACHIAL
[2024-08-22] MEDS: DOXYCYCLINE HYCLATE 100 MG TABLET PO (08:56)
[2024-08-22] MEDS: ENOXAPARIN 80 MG/0.8 ML SYRINGE SUB-Q (08:57)
[2024-08-22] MEDS: IPRATROPIUM NASAL SPRAY 0.06% 15 ML BOTTLE 2 SPRAY NASAL (08:57)
[2024-08-22] MEDS: PANTOPRAZOLE 40 MG TABLET PO (08:57)
[2024-08-22] MEDS: CLOPIDOGREL BISULFATE 75 MG TABLET PO (08:57)
[2024-08-22] MEDS: AMOXICILLIN/CLAVULANATE K 875-125 MG TAB 1 TABLET PO (08:57)
[2024-08-22] MEDS: FUROSEMIDE INJ 40 MG/4 ML VIAL IV PUSH (08:57)
--- NOTE | 2024-08-22 12:10 | PCOTNOTE ---
Per RN, pt almost had a rapid called on him this morning for rapid breathing and increasing confusion. RN reports family may have a meeting with hospice and family would like to hold on therapy at this time due to medical condition.
--- NOTE | 2024-08-22 14:02 | PM.IMPN ---
Progress Note: A&P Assessment and Plan (1) Atrial fibrillation with RVR: Code(s): I48.91 - Unspecified atrial fibrillation Status: Acute Assessment and Plan: - EKG on admission: A-Fib RVR with LBBB. - Patient maintains A-Fib on telemetry, now rate controlled in the 80's. - Currently on Lovenox SQ per registered nurse midwife recommendations. - Currently NPO due to dysphagia. - Metoprolol held due to dysphagia and hypotension. - Polysomnography Tech following. - Patient's family considering Hospice. - Continue tele monitoring pending family decision on goals of care. (2) Acute hypoxic respiratory failure: Code(s): J96.01 - Acute respiratory failure with hypoxia Status: Acute Assessment and Plan: - Likely related to A-Fib, +/vs Acute on Chronic CHF + Cardiomyopathy with EF 15-20. - Currently > 95 % on RA. - Supplemental O2 PRN to maintain sats > 90 %. - Started on Augmentin but unable to swallow. - Family considering Hospice. - Supportive care for now pending family decision. (3) Acute on chronic heart failure with reduced ejection fraction (HFrEF, <= 40%): Code(s): I50.23 - Acute on chronic systolic (congestive) heart failure Status: Acute Assessment and Plan: - BNP 59987 on admission. - Unable to tolerate diuresis due to hypotension. - Monitor weight and I & O's for now. - Last ECHO 10/2012 showed reduced EF with global dyskinesia at 15-20 %. - Repeat ECHO 08/18/24 shows EF 20-25 %. - Refused ICD previously per registered nurse midwife. - Family considering Hospice due to increased debility and confusion. - Seen by registered nurse midwife. (4) Elevated LFTs: Code(s): R79.89 - Other specified abnormal findings of blood chemistry Status: Acute Assessment and Plan: - Possibly secondary to CHF exacerbation. - US RUQ Abdomen: Dilation of the common bile duct to 14 mm but without intrahepatic ductal or ductal dilation. Although likely related to prior cholecystectomy, could not exclude a nonvisualized obstructing stone given the elevated liver function tests would consider MRCP for further evaluation. - Right pleural effusion. - No abdominal painl. - Monitor for now. (5) Dysarthria following cerebral infarction: Code(s): I69.322 - Dysarthria following cerebral infarction Status: Acute Assessment and Plan: - Unclear etiology or whether acute or chronic. - MRA brain negative. - Speech currently baseline. - LDL 64. - TT ECHO with no intracardiac clots. - Patient on Plavix and Statin. - No further work-up for now. (6) Type 2 diabetes mellitus without complications: Onset Date: 05/2024 Code(s): E11.9 - Type 2 diabetes mellitus without complications Status: Acute Assessment and Plan: - Fairly well controlled. - Poor PO intake. - Continue to hold hypoglycemics. - A1C 6.4 (7) HLD (hyperlipidemia): Code(s): E78.5 - Hyperlipidemia, unspecified Status: Acute Assessment and Plan: - Statin when able to swallow. (8) CAD (coronary artery disease): Code(s): I25.10 - Atherosclerotic heart disease of [place] coronary artery without angina pectoris Status: Acute Assessment and Plan: - Stable. - Continue statin, plavix and metoprolol when able to swallow. (9) Ischemic cardiomyopathy: Code(s): I25.5 - Ischemic cardiomyopathy Status: Acute Assessment and Plan: - Mgt as # 3. - Refused ICD previously per registered nurse midwife. - Continue tele monitoring. - Appreciate registered nurse midwife assistance. - Repeat ECHO 08/18/24 showing EF 20-25%. (10) HTN (hypertension): Code(s): I10 - Essential (primary) hypertension Status: Acute Assessment and Plan: - Currently trending low. - Unable to take Metoprolol due to dysphagia. - Lasix and Metoprolol held due to hypotension. (11) Pure hypercholesterolemia, unspecified: Code(s): E78.00 - Pure hypercholesterolemia, unspecified Status: Acute Assessment and Plan: - Statin when able to swallow. - Check LDL 64. (12) GERD (gastroesophageal reflux disease): Code(s): K21.9 - Gastro-esophageal reflux disease without esophagitis Status: Acute Assessment and Plan: - Pantoprazole. (13) Arthritis: Code(s): M19.90 - Unspecified osteoarthritis, unspecified site Status: Acute Assessment and Plan: - Pain meds PRN. Plan Patient very weak and confused, appears to be declining. Hospice consulted per family request and we'll follow family decision. Very poor prognosis. Time Spent With Patient Time with patient: 25 - 35 minutes Subjective Date/time seen: 08/22/24 14:02 Patient on very weak on bedrest with some confusion. Family bedside and reports patient has been hallucinating. Pt denies any distressful symptoms and asking if he's going home today. Review of Systems Review of Systems: All systems reviewed & are unremarkable except as noted in HPI and below Exam Narrative: General: Very weak and lethargic. Confused on bedrest and very sleepy. HEENT: Atraumatic, K[place], non-icteric, moist mucosa. NECK: Supple. Lungs: Faint crackles to bases. HEART: Irregularly irregular, no murmurs. ABDOMEN: Soft, non-tender, non-distended, +ve bowel sounds X4 Quadrants. Extremities: No edema. Maximo. LE petechiae. Skin: Intact with no lesions. Maximo. LE petechiae. Neuro: Confused. No focal neuro deficits. Psych: PConfused but co-operative. Objective Data Vital Signs Vital Signs: Vital Signs - 24 hr 08/21/24 16:13 08/21/24 18:08 08/21/24 18:39 Temperature 98.7 F Pulse Rate 82 110 H Respiratory Rate 18 Blood Pressure 97/70 L 102/64 Pulse Oximetry 95 Oxygen Delivery Oxygen Flow Rate 08/21/24 16:00 08/21/24 18:00 08/21/24 16:00 Temperature Pulse Rate 94 96 Respiratory Rate Blood Pressure Pulse Oximetry 97 Oxygen Delivery Room Air Oxygen Flow Rate 08/21/24 19:37 08/21/24 20:00 08/21/24 20:00 Temperature 98.3 F Pulse Rate 85 95 Respiratory Rate 20 Blood Pressure 100/60 Pulse Oximetry 92 Oxygen Delivery Room Air Oxygen Flow Rate 08/21/24 22:00 08/21/24 23:59 08/22/24 00:11 Temperature 98.7 F Pulse Rate 91 97 97 Respiratory Rate 20 Blood Pressure 106/66 Pulse Oximetry 95 Oxygen Delivery Oxygen Flow Rate 08/22/24 00:00 08/22/24 00:00 08/22/24 02:00 Temperature Pulse Rate 95 104 H Respiratory Rate Blood Pressure Pulse Oximetry Oxygen Delivery Room Air Oxygen Flow Rate 08/22/24 04:05 08/22/24 04:00 08/22/24 04:00 Temperature 97.7 F Pulse Rate 109 H 113 H Respiratory Rate 22 H Blood Pressure 106/72 Pulse Oximetry 93 Oxygen Delivery Room Air Oxygen Flow Rate 08/22/24 05:30 08/22/24 06:00 08/22/24 08:00 Temperature 97.5 F L Pulse Rate 90 108 H 95 Respiratory Rate 36 H Blood Pressure 99/61 L Pulse Oximetry 100 Oxygen Delivery Oxygen Flow Rate 08/22/24 08:00 08/22/24 08:00 08/22/24 10:00 Temperature Pulse Rate 100 89 Respiratory Rate Blood Pressure Pulse Oximetry 93 Oxygen Delivery Nasal Cannula Oxygen Flow Rate 5 08/22/24 08:30 08/22/24 09:00 08/22/24 12:00 Temperature 96.9 F L Pulse Rate 87 Respiratory Rate 28 H Blood Pressure 91/53 L Pulse Oximetry 95 97 95 Oxygen Delivery Nasal Cannula Room Air Oxygen Flow Rate 2 Intake/Output Intake/Output: Intake & Output 08/20/24 08/20/24 08/21/24 08/22/24 00:59 23:59 23:59 23:59 Intake Total 730 550 Output Total 1250 425 Balance -520 125 Meds/Results Medications: Active Medications Generic Name Dose Route Start Last Admin Trade Name Freq PRN Reason Stop Dose Admin Hydrocodone Bitart/Acetaminophen 1 tab 08/18/24 16:29 Hydrocodone/Acetaminophen (*Crx) 5-325 Mg Tablet PO Q6H PRN pain Amoxicillin/Clavulanate Potassium 1 tablet 08/22/24 09:00 08/22/24 08:57 Amoxicillin/Clavulanate K 875-125 Mg Tab PO 08/26/24 21:01 1 tablet Q12HR LAYA Administration Clopidogrel Bisulfate 75 mg 08/19/24 09:00 08/22/24 08:57 Clopidogrel Bisulfate 75 Mg Tablet PO 75 mg DAILY LAYA Administration Doxycycline Hyclate 100 mg 08/22/24 09:00 08/22/24 08:56 Doxycycline Hyclate 100 Mg Tablet PO 08/26/24 21:01 100 mg Q12HR LAYA Administration Enoxaparin Sodium 80 mg 08/20/24 21:00 08/22/24 08:57 Enoxaparin 80 Mg/0.8 Ml Syringe SUB-Q 80 mg Q12HR LAYA Administration Furosemide 40 mg 08/19/24 13:00 08/22/24 08:57 Furosemide Inj 40 Mg/4 Ml Vial IV PUSH 40 mg TID LAYA Administration Ipratropium [place] 2 spray 08/18/24 17:00 08/22/24 13:47 Ipratropium Nasal [place] 0.06% 15 Ml Bottle NASAL Not Given TID LAYA Metoprolol Tartrate 25 mg 08/19/24 07:45 08/22/24 12:30 Metoprolol Tartrate 25 Mg Tablet PO Not Given Q6HR LAYA Pantoprazole Sodium 40 mg 08/19/24 09:00 08/22/24 08:57 Pantoprazole 40 Mg Tablet PO 40 mg DAILY LAYA Administration Trazodone HCl 25 mg 08/18/24 23:15 08/21/24 20:10 Trazodone Hcl 25 Mg Tablet PO 25 mg HS LAYA Administration Trazodone HCl 200 mg 08/18/24 23:15 08/21/24 20:10 Trazodone Hcl 50 Mg Tablet PO 200 mg HS LAYA Administration Radiology Results: ITS Impressions Pulmonary Perfusion Imaging 08/18/24 13:36 IMPRESSION: 1. Intermediate probability for pulmonary embolism. Brain MRA 08/19/24 14:37 IMPRESSION: 1. Mild to moderate stenosis along the left A1 segment. 2. Small old right occipital lobe infarct and additional small old lacunar infarcts at the bilateral basal ganglia. Abdomen Ultrasound 08/19/24 14:49 IMPRESSION: 1. Dilation of the common bile duct to 14 mm but without intrahepatic ductal or ductal dilation. Although likely related to prior cholecystectomy, could not exclude a nonvisualized obstructing stone given the elevated liver function tests would consider MRCP for further evaluation. 2. Indeterminate 1 cm hepatic lesion for which further evaluation with pre and postcontrast MRI would be recommended. This could be performed at the same time as the MRCP. 3. Right pleural effusion. Chest X-Ray 08/21/24 09:08 IMPRESSION: Left basilar atelectasis versus pneumonia. Highly suggestive tracking effusion the right side. Cardiomegaly with congestive [place] which may indicate cardiac decompensation. Labs Labs: Laboratory Results - last 24 hr 08/22/24 04:59 WBC 15.5 H RBC 4.17 L Hgb 13.2 L Hct 39.6 L MCV 95.0 MCH 31.7 MCHC 33.3 RDW 15.7 H Plt Count 144 L MPV 10.8 H Sodium 130 L Potassium 4.7 Chloride 90 L Carbon Dioxide 25 Anion Gap 15 H BUN 53 H Creatinine 1.40 H Estim Creat Clear Calc 39 Estimated GFR 48 L Glucose 147 H Calcium 8.6 Quality VTE Prophylaxis VTE prophylaxis: mechanical ordered and pharmacologic ordered Hospitalist MIPS Advance Care Plan I have confirmed that the patient's Advanced Care Plan is present, code status is documented, or surrogate decision maker is listed in patient medical record.: Yes Medication Reconciliation I have utilized all available resources to obtain, update and review the patients current medications (includes all prescriptions, OTC, herbals, cannabis, and nutritional supplements).: Yes
--- NOTE | 2024-08-22 16:06 | P.PNCA_ITS ---
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 Repeat echocardiogram done during this hospitalization shows severe systolic dysfunction and evidence of pleural effusion. * Hold lasix because of AMI * Has been unable to afford Entresto. * Continue to hold lisinopril 5 mg daily and Aldactone 25 mg daily due to low blood pressures. Resume when blood pressure allows * Continue metoprolol * Has refused ICD for primary prevention in the past. (2) Atrial fibrillation with RVR: Code(s): I48.91 - Unspecified atrial fibrillation Status: Acute Assessment and Plan: * New diagnosis for the patient. * TSH was normal during this admission. * Heart rates are now better controlled. Continue metoprolol 25 mg q.6 hours. * [id number] of 7. 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 Continue home Plavix, statin. (4) Left bundle-branch block, unspecified: Code(s): I44.7 - Left bundle-branch block, unspecified Status: Acute Assessment and Plan: Chronic (5) HTN (hypertension): Code(s): I10 - Essential (primary) hypertension Status: Acute Assessment and Plan: Blood pressure is soft. Holding both spironolactone 25 mg daily and lisinopril 5 mg daily. (6) HLD (hyperlipidemia): Code(s): E78.5 - Hyperlipidemia, unspecified Status: Acute Assessment and Plan: Check CMP tomorrow to trend LFT's and resume statin if appropriate. Subjective Date/time seen: 08/22/24 16:06 Interval history: 08/19-remains in AFib today with heart rates 100-115 beats per minute. Shortness of breath improved. On 2 L nasal cannula. No chest pain 08/20-feels better today. Heart rates are improved. Still on 2 L nasal cannula. Date of service 08/21/2024: He reports some shortness of breath but he is off oxygen today and seems to be breathing comfortably while lying flat. Date of service 08/22/2024: He is somnolent today. Family at bedside states they have discussed comfort care only with the hospitalist service. Review of Systems Review of Systems: All systems reviewed & are unremarkable except as noted in HPI and below (HPI) Exam Const: General: no acute distress HENMT: Mouth: Yes moist mucous membranes Other: edentulous Eyes: General: appearance normal, both eyes and all related structures Sclera: sclerae normal Resp: Effort & Inspection: normal respiratory effort Auscultation: diminished lung sounds Cardio: Rate: regular rate Rhythm: abnormal rhythm irregularly irregular Heart sounds: no murmurs Skin: General skin exam: normal color Extrem: Other: no edema Psych: Mental Status: mental status grossly abnormal Affect: normal affect Objective Data Vital Signs Vital Signs: Vital Signs - 24 hr 08/21/24 16:13 08/21/24 18:08 08/21/24 18:39 Temperature 37.1 C Pulse Rate 82 110 H Respiratory Rate 18 Blood Pressure 97/70 L 102/64 Pulse Oximetry 95 Oxygen Delivery Oxygen Flow Rate 08/21/24 18:00 08/21/24 19:37 08/21/24 20:00 Temperature 36.8 C Pulse Rate 96 85 Respiratory Rate 20 Blood Pressure 100/60 Pulse Oximetry 92 Oxygen Delivery Room Air Oxygen Flow Rate 08/21/24 20:00 08/21/24 22:00 08/21/24 23:59 Temperature Pulse Rate 95 91 97 Respiratory Rate Blood Pressure Pulse Oximetry Oxygen Delivery Oxygen Flow Rate 08/22/24 00:11 08/22/24 00:00 08/22/24 00:00 Temperature 37.1 C Pulse Rate 97 95 Respiratory Rate 20 Blood Pressure 106/66 Pulse Oximetry 95 Oxygen Delivery Room Air Oxygen Flow Rate 08/22/24 02:00 08/22/24 04:05 08/22/24 04:00 Temperature 36.5 C Pulse Rate 104 H 109 H Respiratory Rate 22 H Blood Pressure 106/72 Pulse Oximetry 93 Oxygen Delivery Room Air Oxygen Flow Rate 08/22/24 04:00 08/22/24 05:30 08/22/24 06:00 Temperature Pulse Rate 113 H 90 108 H Respiratory Rate Blood Pressure Pulse Oximetry Oxygen Delivery Oxygen Flow Rate 08/22/24 08:00 08/22/24 08:00 08/22/24 08:00 Temperature 36.4 C L Pulse Rate 95 100 Respiratory Rate 36 H Blood Pressure 99/61 L Pulse Oximetry 100 93 Oxygen Delivery Nasal Cannula Oxygen Flow Rate 5 08/22/24 10:00 08/22/24 08:30 08/22/24 09:00 Temperature Pulse Rate 89 Respiratory Rate Blood Pressure Pulse Oximetry 95 97 Oxygen Delivery Nasal Cannula Room Air Oxygen Flow Rate 2 08/22/24 12:00 Temperature 36.1 C L Pulse Rate 87 Respiratory Rate 28 H Blood Pressure 91/53 L Pulse Oximetry 95 Oxygen Delivery Oxygen Flow Rate Intake/Output Intake/Output: Intake & Output 08/20/24 08/20/24 08/21/24 08/22/24 00:59 23:59 23:59 23:59 Intake Total 730 550 Output Total 1250 425 Balance -520 125 Meds/Results Medications: Active Medications Generic Name Dose Route Start Last Admin Trade Name Freq PRN Reason Stop Dose Admin Hydrocodone Bitart/Acetaminophen 1 tab 08/18/24 16:29 Hydrocodone/Acetaminophen (*Crx) 5-325 Mg Tablet PO Q6H PRN pain Amoxicillin/Clavulanate Potassium 1 tablet 08/22/24 09:00 08/22/24 08:57 Amoxicillin/Clavulanate K 875-125 Mg Tab PO 08/26/24 21:01 1 tablet Q12HR LAYA Administration Clopidogrel Bisulfate 75 mg 08/19/24 09:00 08/22/24 08:57 Clopidogrel Bisulfate 75 Mg Tablet PO 75 mg DAILY LAYA Administration Doxycycline Hyclate 100 mg 08/22/24 09:00 08/22/24 08:56 Doxycycline Hyclate 100 Mg Tablet PO 08/26/24 21:01 100 mg Q12HR LAYA Administration Enoxaparin Sodium 80 mg 08/20/24 21:00 08/22/24 08:57 Enoxaparin 80 Mg/0.8 Ml Syringe SUB-Q 80 mg Q12HR LAYA Administration Furosemide 40 mg 08/19/24 13:00 08/22/24 08:57 Furosemide Inj 40 Mg/4 Ml Vial IV PUSH 40 mg TID LAYA Administration Ipratropium [place] 2 spray 08/18/24 17:00 08/22/24 13:47 Ipratropium Nasal [place] 0.06% 15 Ml Bottle NASAL Not Given TID LAYA Metoprolol Tartrate 25 mg 08/19/24 07:45 08/22/24 12:30 Metoprolol Tartrate 25 Mg Tablet PO Not Given Q6HR LAYA Pantoprazole Sodium 40 mg 08/19/24 09:00 08/22/24 08:57 Pantoprazole 40 Mg Tablet PO 40 mg DAILY LAYA Administration Trazodone HCl 25 mg 08/18/24 23:15 08/21/24 20:10 Trazodone Hcl 25 Mg Tablet PO 25 mg HS LAYA Administration Trazodone HCl 200 mg 08/18/24 23:15 08/21/24 20:10 Trazodone Hcl 50 Mg Tablet PO 200 mg HS LAYA Administration Radiology Results: ITS Impressions Pulmonary Perfusion Imaging 08/18/24 13:36 IMPRESSION: 1. Intermediate probability for pulmonary embolism. Brain MRA 08/19/24 14:37 IMPRESSION: 1. Mild to moderate stenosis along the left A1 segment. 2. Small old right occipital lobe infarct and additional small old lacunar infarcts at the bilateral basal ganglia. Abdomen Ultrasound 08/19/24 14:49 IMPRESSION: 1. Dilation of the common bile duct to 14 mm but without intrahepatic ductal or ductal dilation. Although likely related to prior cholecystectomy, could not exclude a nonvisualized obstructing stone given the elevated liver function tests would consider MRCP for further evaluation. 2. Indeterminate 1 cm hepatic lesion for which further evaluation with pre and postcontrast MRI would be recommended. This could be performed at the same time as the MRCP. 3. Right pleural effusion. Chest X-Ray 08/21/24 09:08 IMPRESSION: Left basilar atelectasis versus pneumonia. Highly suggestive tracking effusion the right side. Cardiomegaly with congestive [place] which may indicate cardiac decompensation. Labs Labs: Laboratory Results - last 24 hr 08/22/24 04:59 WBC 15.5 H RBC 4.17 L Hgb 13.2 L Hct 39.6 L MCV 95.0 MCH 31.7 MCHC 33.3 RDW 15.7 H Plt Count 144 L MPV 10.8 H Sodium 130 L Potassium 4.7 Chloride 90 L Carbon Dioxide 25 Anion Gap 15 H BUN 53 H Creatinine 1.40 H Estim Creat Clear Calc 39 Estimated GFR 48 L Glucose 147 H Calcium 8.6 Quality VTE Prophylaxis VTE prophylaxis: mechanical ordered and pharmacologic ordered
[2024-08-23 07:51] VITALS: BP 154/61; PULSE 75; RESP 18; TEMP 36.6; O2SAT 97
--- NOTE | 2024-08-23 12:02 | PM.DS ---
DS: Admitting Diagnosis Discharge Date 08/23/2024 Admitting Diagnosis A-Fib RVR, New Onset DS: Discharge Diagnosis Discharge Diagnosis (1) Atrial fibrillation with RVR: Code(s): I48.91 - Unspecified atrial fibrillation Status: Acute Assessment and Plan: - EKG on admission: A-Fib RVR with LBBB. - Patient maintained A-Fib on telemetry, rate controlled with medications inpatient. - Started on Lovenox SQ for anticoagulation. - Rate controlled with metoprolol. - Maintained telemetry monitoring during inpatient stay. - Cab Worker assisted in stabilizing patient. (2) Acute hypoxic respiratory failure: Code(s): J96.01 - Acute respiratory failure with hypoxia Status: Acute Assessment and Plan: - Likely related to A-Fib, +/vs Acute on Chronic CHF + Cardiomyopathy with EF 15-20. - Maintained > 95 % O2 sats on RA. - Started on Augmentin for possible PNA but unable to swallow. 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 - Placed on Lasix IV but pt unable to tolerate much diuresis due to hypotension. - Pt was on I & O's monitoring and weight monitoring. - Last ECHO 10/2012 showed reduced EF with global dyskinesia at 15-20 %. - Repeat ECHO 08/18/24 shows EF 20-25 %. - Refused ICD previously per superintendent custodian janitor. - Seen by superintendent custodian janitor. (4) Elevated LFTs: Code(s): R79.89 - Other specified abnormal findings of blood chemistry Status: Acute Assessment and Plan: - Possibly secondary to CHF exacerbation. - US RUQ Abdomen: Dilation of the common bile duct to 14 mm but without intrahepatic ductal or ductal dilation. Although likely related to prior cholecystectomy, could not exclude a nonvisualized obstructing stone given the elevated liver function tests would consider MRCP for further evaluation. - Right pleural effusion. - Denied abdominal pain. - No interventions noted with patient's unstable condition. (5) Dysarthria following cerebral infarction: Code(s): I69.322 - Dysarthria following cerebral infarction Status: Acute Assessment and Plan: - Resolved. - Unclear etiology or whether acute or chronic. - MRA brain negative. - LDL 64. - TT ECHO with no intracardiac clots. - Patient placed on Plavix and Statin. - No further work-up required. (6) Type 2 diabetes mellitus without complications: Onset Date: 05/2024 Code(s): E11.9 - Type 2 diabetes mellitus without complications Status: Acute Assessment and Plan: - Fairly well controlled inpatient without interventions. - A1C 6.4 (7) HLD (hyperlipidemia): Code(s): E78.5 - Hyperlipidemia, unspecified Status: Acute Assessment and Plan: - Statin given inpatient. (8) CAD (coronary artery disease): Code(s): I25.10 - Atherosclerotic heart disease of [place] coronary artery without angina pectoris Status: Acute Assessment and Plan: - Stable. - Continued on statin, plavix and metoprolol inpatient. (9) Ischemic cardiomyopathy: Code(s): I25.5 - Ischemic cardiomyopathy Status: Acute Assessment and Plan: - Mgt as # 3. - Refused ICD previously per superintendent custodian janitor. - Cab Worker assisted with managing pt condition. - Repeat ECHO 08/18/24 showing EF 20-25%. (10) HTN (hypertension): Code(s): I10 - Essential (primary) hypertension Status: Acute Assessment and Plan: - BP remained low inpatient. - Lasix and Metoprolol held for the most part due to hypotension. (11) Pure hypercholesterolemia, unspecified: Code(s): E78.00 - Pure hypercholesterolemia, unspecified Status: Acute Assessment and Plan: - Statin given inpatient. - Check LDL 64. (12) GERD (gastroesophageal reflux disease): Code(s): K21.9 - Gastro-esophageal reflux disease without esophagitis Status: Acute Assessment and Plan: - Pantoprazole given. (13) Arthritis: Code(s): M19.90 - Unspecified osteoarthritis, unspecified site Status: Acute Assessment and Plan: - PRN pain meds given inpatient. (14) Dysphagia: Code(s): R13.10 - Dysphagia, unspecified Status: Acute Assessment and Plan: - Likely due to increased generalized muscle weakness. - Unable to pass bedside swallow exam. - PO meds and diet held for dysphagia. - ST will continue to follow. Plan Patient very weak and appears to be declining, with very poor prognosis. Family held discussions and decided to go home with patient on hospice. Patient to be discharged home on hospice. DS: Summary Hospital Course Reason for hospitalization: A-Fib RVR Hospital Course: Patient presented to the hospital with increased generalized muscle weakness and was found to have new onset A-Fib with RVR. Patient was also noted to be in acute HFrEF. Patient has an EF of 20-25% and declined ICD previously per superintendent custodian janitor, who assisted in patient management. He was admitted for stabilization of symptoms and was diuresed with Lasix IV but was unable to tolerate much diuresis due to hypotension. Patient was also started on Metoprolol for rate control but was unable to tolerate much due to hypotension as well. He was anticoagulated with Lovenox SQ. Patient was noted with some dysarthria on initial presentation and had an MRI brain done that did not show any acute changes. Patient condition continued to deteriorate inpatient, and was unable to swallow due to deconditioning. With poor prognosis, patient's family opted for hospice care at home. Patient awake and alert this AM, stating wants to go home. Patient is being discharged home with hospice care. Status at Discharge Functional status at discharge: bed bound Overall status at discharge: other (Declined and pt being discharged on hospice care) Time Spent with Patient Time attestation: Total time spent providing and/or coordinating discharge services: Time spent: Greater than 30 minutes Exam Narrative: General: Very weak and lethargic. Fairly well oriented but poor speech due to severe debility. HEENT: Atraumatic, KASEY, non-icteric, dry mucosa. NECK: Supple. Lungs: Faint crackles to bases. HEART: Irregularly irregular, no murmurs. ABDOMEN: Soft, non-tender, non-distended, +ve bowel sounds X4 Quadrants. Extremities: No edema. Maximo. LE petechiae. Skin: Intact with no lesions. Maximo. LE petechiae. Neuro: Fairly oriented. No focal neuro deficits. Psych: Pleasant and co-operative. Discharge Plan Discharge Attending physician on discharge: [place] Discharging Clinician: Tyrone Mon Anticipated Discharge Date/Time: 08/23/24 12:45 Patient Disposition: Hospice - Home Activity: as tolerated Diet: as tolerated Stand Alone Forms: General Discharge Information Follow-up/Referrals: Lanre Laureano MD [Primary Care Provider] - 1 Week Discharge Medications: Discontinued furosemide 40 mg tablet 60 mg PO DAILY fluorouracil 5 % cream 1 applic topical DAILY clopidogrel 75 mg tablet 75 mg PO DAILY spironolactone 25 mg tablet 25 mg PO DAILY Rx Instructions: TAKE 1 TABLET BY MOUTH EVERY DAY carvedilol 3.125 mg tablet 3.125 mg PO DAILY pantoprazole 40 mg tablet,delayed release (DR/EC) 40 mg PO DAILY trazodone 150 mg tablet 150 mg PO DAILY Rx Instructions: TAKE 1.5 TABLET BY MOUTH EVERY DAY AT BEDTIME ipratropium bromide 42 mcg (0.06 %) spray,non-aerosol 2 spray intranasal TID Rx Instructions: administer into each nostril hydrocodone-acetaminophen 5-325 mg tablet 1 tablet PO Q6H PRN (Reason: pain) Qty: 30 0RF rosuvastatin 40 mg tablet 40 mg PO DAILY Qty: 90 2RF Date of admission: 08/20/24 10:39 Primary Care Provider: Lanre Laureano Admitting Provider: Hermelindo Jara Attending physician on admission: Hermelindo Jara Condition: Terminal Quality If No VTE Prophylaxis Answer both mechanical and pharmacologic: Reason no mechanical VTE proph: patient/caregiver refusal (Patient on hospice) Reason no pharmacologic proph: patient/caregiver refusal (Patient on Hospice) Hospitalist MIPS Heart Failure (Exclusion) Patient has history of Heart Transplant or Left Ventricular Assistive Device?: No IF YES, STOP HERE Heart Failure (Qualifier) Patient has current or prior documentation of LVEF less than or equal to 40%, or mod/servere depressed LVSF?: Yes IF NO, STOP HERE If Yes, Heart Failure (Qualifier) Patient was prescribed or already taking an Angiotensin-Converting Enzyme (AR) Inhibitor, or Antiotensin Receptor [place] (ARB): No Patient was prescribed or already taking bisoprolol, carvedilol, or sustained release metoprolol succinate: No If Medications not prescribed/taking Reason patient not prescribed/taking AR or ARB: Patient reasons: pt declined or other pt reason (Pt on hospice) Reason patient not prescribed/taking bisoprolol, carvedilol, or sustained realease metoprolol succinate: Patient reasons: pt declined or other pt reason (Pt on hospice)
[2024-08-23 20:17] VITALS: BP 150/73; PULSE 86; RESP 18; TEMP 36.9; O2SAT 90
== END 2024-08-23 20:42 | disposition hospice, home (50) | DRG 291 ==
LOC: ANHED 09:28 → ANHIMU 13:07
PROVIDERS: Internal Medicine; Internal Medicine Cardiovascular Disease; Physician Assistant; Admitting Provider Internal Medicine; Emergency Provider Physician Assistant; PCP Family Medicine Adolescent Medicine; Visit Provider Nurse Practitioner Adult Health
DX: I11.0 Hypertensive heart disease with heart failure (principal); I50.23 Acute on chronic systolic (congestive) heart failure; J96.01 Acute respiratory failure with hypoxia; N17.9 Acute kidney failure, unspecified; I48.91 Unspecified atrial fibrillation; I44.7 Left bundle-branch block, unspecified; I25.10 Atherosclerotic heart disease of native coronary artery without angina pectoris; E78.5 Hyperlipidemia, unspecified; K21.9 Gastro-esophageal reflux disease without esophagitis; I25.5 Ischemic cardiomyopathy; I95.9 Hypotension, unspecified; R47.1 Dysarthria and anarthria; R13.10 Dysphagia, unspecified; D64.9 Anemia, unspecified; M19.90 Unspecified osteoarthritis, unspecified site; Z95.5 Presence of coronary angioplasty implant and graft; Z86.16 Personal history of COVID-19; I25.2 Old myocardial infarction; Z90.49 Acquired absence of other specified parts of digestive tract; Z87.891 Personal history of nicotine dependence
CPT/HCPCS: 36415; 36600; 70544; 71045; 71046; 76705; 78582; 80048; 80053; 82805; 83036; 83690; 83721; 83880; 84145; 84443; 84484; 85018; 85025; 85027; 85055; 85380; 85610; 85652; 85730; 86140; 93005; 93306; 96365; 96366; 96374; 96375; 96376; 97162; 99285; A9270; A9540; A9558; G0378; J1644; J1650; J1940; Q9957